=== PATIENT | female | born 1945 | race Two or more races ===

== ENCOUNTER 2020-07-26 18:19 | Inpatient (IN) ==
--- NOTE | 2020-07-26 18:39 | Emergency Department Note ---
Impression & Plan Hypothermia, Weakness, Bradycardia ED Provider Note NAME: TIA SANCHEZ AGE: 74 SEX: F : 1945 ARRIVES VIA: Walk-In INFORMANT: Patient ED PROVIDER(S): Wiley Bloom DO CHIEF COMPLAINT: weak, trouble walking, hypothermic HPI: Patient is a 74-year-old female with a past medical history of breast cancer who presents the ER for weakness. Symptoms have been present for the past 1.5 weeks. They have been getting worse. They have been following up with PCP and had blood work. Patient today had another appointment for telehealth and she was referred in as symptoms have been getting worse and she has been having trouble walking and was found to be 92 to 93 F. Patient denies any headache or change in vision. No chest pain or shortness of breath. No nausea, vomiting or diarrhea. No dysuria, urgency or frequency. No other exacerbating or remitting factors. ROS: See above HPI for pertinent positives & negatives. A total of 10 systems reviewed and were otherwise negative. PAST MEDICAL HISTORY:See Below PAST SURGICAL HISTORY:See Below FAMILY HISTORY:See Below SOCIAL HISTORY:See Below HOME MEDICATIONS:See Below ALLERGIES:See Below VITALS:See Below PHYSICAL EXAMINATION: GENERAL: Sitting up in bed, alert, well appearing, well nourished, no distress, non-toxic EYE EXAM: normal conjunctiva. PERRL and EOM's intact. OROPHARYNX: mask in place NECK: supple, no nuchal rigidity, no adenopathy, non-tender LUNGS: Clear to auscultation. Normal chest wall mechanics HEART: no murmurs, S1 normal and S2 normal ABDOMEN: abdomen soft, non-tender, normo-active bowel sounds, no masses, no rebound or guarding. UPPER EXTREMITIES: upper extremities are grossly normal. LOWER EXTREMITIES: No pitting edema. NEURO EXAM: Normal sensorium, cranial nerves II-XII intact, normal speech, no weakness of arms, no weakness of legs. No drift. Finger to nose intact. Gross sensation intact. MEDICAL DECISION MAKING: Patient is a 74-year-old female who presents the ER for weakness. Symptoms have been present for the past 1.5 weeks. Gradually getting worse. She has been following up with her PCP and was referred in today. IV was established blood work was obtained. She is neurologically intact. Labs show no significant leukocytosis or anemia. BMP with mild hyponatremia 128. Lactate was normal. Mild elevation in LFTs. Troponin was negative. Lipase unremarkable. TSH 6.4. UA without infection. Covid was negative. CT head and chest x-ray were unremarkable. Patient was updated bedside. Discussed with the hospitalist for further evaluation. She remained under Rachael hugger throughout her entire stay. She was given a bolus of IV fluids. They are updated bedside and admitted for further work-up. Triage Nursing notes reviewed. Limited review of prior medical records performed Vital Signs: reviewed and remarkable for hypothermia Differential diagnosis: Differential diagnosis includes etiologies such as sepsis, UTI, pneumonia, metabolic, electrolyte abnormalities, cardiac sources, intracerebral event, toxicologic, neurological, as well as others were entertained. ER treatment provided: See below Diagnostics interpreted by me: ECG: Sinus bradycardia rate of 46 Poor baseline in the inferior leads No PVCs QTC 425 Cardiac Monitoring: An order was placed for continuous cardiac monitoring. The monitor shows a rate of 42 with sinus rhythm. Laboratory studies: As stated above and show below. Imaging studies: CT head shows no acute pathology Portable AP upright 1 view of the chest shows no acute infiltrate Consultation(s): Discussed with the hospitalist for further evaluation Procedures: none Critical Care: None Past Med/Surg History Medical History Allergic rhinitis Person's cyst of knee Benign neoplasm of colon Cataract Dyslipidemia Edema of both legs FH: colonic polyps HTN, goal below 140/90 Hx of vaginal delivery Lumbar spondylosis Menopause Painful total knee replacement, right Surgical History History of lumpectomy of left breast History of partial hysterectomy Family History Mother Musculoskeletal disease Blood disorder anemia, at age 91y Father , dies at age 81 Diabetes 1.5, managed as type 2 Hypertension Brother Hypertension Sister , UNILATERAL, POSTMENOPAUSAL BREAST CANCER Breast cancer Social History Smoking Status: Never smoker Hx Alcohol Use: No Hx Substance Use: No Preferred Language: Malay Communication Ability: Effective Visual Impairment: Partially Limited Hearing Ability: Normal Training Development Director Required: No Beliefs That Will Affect Care: None marital status: Current Living Situation: Spouse current occupation: homemaker Feels Safe at Home: Yes caffeine: Yes during the past year weight has: remained stable Allergies Allergies Allergy/AdvReac Type Severity Reaction Status Date / Time amoxicillin Allergy Intermediate Rash Verified 07/05/20 14:04 adhesive tape AdvReac Verified 07/05/20 14:04 Home Meds Home Medications Medication Instructions Recorded Confirmed anastrozole 1 mg tablet 1 mg PO DAILY 11/17/18 07/26/20 carvedilol 6.25 mg tablet 6.25 mg PO PM tab 05/20/19 07/26/20 albuterol sulfate 90 mcg/actuation 2 puff INHALATION Q4H PRN g 05/18/20 07/26/20 aerosol inhaler ammonium lactate 12 % topical cream 1 applic TOP DAILY 05/18/20 07/26/20 atorvastatin 10 mg tablet 10 mg PO QPM 05/18/20 07/26/20 carvedilol 12.5 mg tablet 12.5 mg PO QAM tab 05/18/20 07/26/20 clindamycin HCl 150 mg capsule 150 mg PO TID PRN 05/18/20 07/26/20 furosemide 20 mg tablet 20 mg PO QAM 05/18/20 07/26/20 multivitamin 1 tab PO DAILY 05/18/20 07/26/20 acetaminophen [Acetaminophen Extra 500 mg PO Q8H PRN 07/26/20 07/26/20 Strength] albuterol sulfate [Proventil] 2.5 mg CONTINUOUS NEBULIZATION Q4H 07/26/20 07/26/20 PRN amlodipine 5 mg PO PM 07/26/20 07/26/20 cholecalciferol (vitamin D3) 50 mcg PO DAILY 07/26/20 07/26/20 fluticasone propionate 2 spray INTRANASAL QAM 07/26/20 07/26/20 lisinopril 40 mg PO DAILY 07/26/20 07/26/20 Results & Data (ED) Vital Signs Vital Signs - 24 hr 07/26/20 18:22 07/26/20 18:50 07/26/20 18:56 Temperature 35.5 C L 34.0 C L Temperature Source Temporal Artery Scan Rectal Pulse Rate 45 L 45 L Pulse Rate from SpO2 Sensor Respiratory Rate 16 14 Respiratory Effort / Characteristics Non-Labored Spontaneous Respiratory Depth Normal Respiratory Pattern Regular Blood Pressure 180/95 H Blood Pressure Mean 123 Blood Pressure Position Sitting Pulse Oximetry 99 Oxygen Delivery Method Room Air Sepsis Recent Fever Within 48 Hours No Sepsis New/Unexplained Change in Mental Status N/A Sepsis Action Taken by Nursing No Action Required 07/26/20 19:00 07/26/20 19:01 07/26/20 19:20 Temperature Temperature Source Pulse Rate 45 L 44 L Pulse Rate from SpO2 Sensor 46 L 44 L 47 L Respiratory Rate 16 20 Respiratory Effort / Characteristics Respiratory Depth Respiratory Pattern Blood Pressure 172/90 H Blood Pressure Mean 104 Blood Pressure Position Pulse Oximetry 98 98 98 Oxygen Delivery Method Sepsis Recent Fever Within 48 Hours Sepsis New/Unexplained Change in Mental Status Sepsis Action Taken by Nursing 07/26/20 19:30 07/26/20 19:31 07/26/20 19:40 Temperature Temperature Source Pulse Rate 44 L 44 L 47 L Pulse Rate from SpO2 Sensor 45 L 46 L Respiratory Rate 17 20 16 Respiratory Effort / Characteristics Respiratory Depth Respiratory Pattern Blood Pressure 150/85 H Blood Pressure Mean 103 Blood Pressure Position Pulse Oximetry 97 100 Oxygen Delivery Method Sepsis Recent Fever Within 48 Hours Sepsis New/Unexplained Change in Mental Status Sepsis Action Taken by Nursing 07/26/20 19:53 07/26/20 20:00 07/26/20 20:10 Temperature Temperature Source Pulse Rate 45 L 43 L 43 L Pulse Rate from SpO2 Sensor Respiratory Rate 19 14 16 Respiratory Effort / Characteristics Respiratory Depth Respiratory Pattern Blood Pressure 150/84 H Blood Pressure Mean 102 Blood Pressure Position Pulse Oximetry 98 Oxygen Delivery Method Room Air Sepsis Recent Fever Within 48 Hours Sepsis New/Unexplained Change in Mental Status Sepsis Action Taken by Nursing 07/26/20 20:20 07/26/20 20:28 07/26/20 20:30 Temperature 34.0 C L Temperature Source Rectal Pulse Rate 45 L 49 L Pulse Rate from SpO2 Sensor Respiratory Rate 15 18 Respiratory Effort / Characteristics Respiratory Depth Respiratory Pattern Blood Pressure Blood Pressure Mean Blood Pressure Position Pulse Oximetry Oxygen Delivery Method Sepsis Recent Fever Within 48 Hours Sepsis New/Unexplained Change in Mental Status Sepsis Action Taken by Nursing 07/26/20 20:40 07/26/20 20:46 07/26/20 20:50 Temperature 34.0 C L Temperature Source Rectal Pulse Rate 55 L 52 L Pulse Rate from SpO2 Sensor Respiratory Rate 14 22 Respiratory Effort / Characteristics Respiratory Depth Respiratory Pattern Blood Pressure Blood Pressure Mean Blood Pressure Position Pulse Oximetry Oxygen Delivery Method Sepsis Recent Fever Within 48 Hours Sepsis New/Unexplained Change in Mental Status Sepsis Action Taken by Nursing 07/26/20 21:00 07/26/20 21:01 07/26/20 21:10 Temperature Temperature Source Pulse Rate 55 L 70 51 L Pulse Rate from SpO2 Sensor Respiratory Rate 14 15 14 Respiratory Effort / Characteristics Respiratory Depth Respiratory Pattern Blood Pressure 147/99 H Blood Pressure Mean 110 Blood Pressure Position Pulse Oximetry 99 Oxygen Delivery Method Room Air Sepsis Recent Fever Within 48 Hours Sepsis New/Unexplained Change in Mental Status Sepsis Action Taken by Nursing 07/26/20 21:27 Temperature Temperature Source Pulse Rate 70 Pulse Rate from SpO2 Sensor Respiratory Rate 24 Respiratory Effort / Characteristics Respiratory Depth Respiratory Pattern Blood Pressure Blood Pressure Mean Blood Pressure Position Pulse Oximetry Oxygen Delivery Method Sepsis Recent Fever Within 48 Hours Sepsis New/Unexplained Change in Mental Status Sepsis Action Taken by Nursing Laboratory Data Result diagrams: 07/26/20 18:43 07/26/20 19:38 Lab Results 07/26/20 07/26/20 07/26/20 Range/Units 18:38 18:43 18:43 WBC 4.84 (4.8-10.8) K/uL RBC 3.99 L (4.2-5.4) M/uL Hgb 12.4 (12.0-16.0) g/dL Hct 35.2 L (37-47) % MCV 88.2 (80-100) fL MCH 31.1 (25-34) pg MCHC 35.2 (32-36) g/dL RDW Std Deviation 42.2 (36.4-46.3) fL RDW Coeff of [place]rera 13.1 (11.5-14.5) % Plt Count 193 (130-400) K/uL MPV 11.1 H (7.4-10.4) fL Immature Gran % (Auto) 0.2 % Neut % (Auto) 62.4 % Lymph % (Auto) 28.3 % [place] % (Auto) 7.2 % Eos % (Auto) 1.7 % Baso % (Auto) 0.2 % Neut # (Auto) 3.02 (1.4-6.5) K/uL Lymph # (Auto) 1.37 (1.2-3.4) K/uL [place] # (Auto) 0.35 (0.11-0.59) K/uL Eos # (Auto) 0.08 (0-0.5) K/uL Baso # (Auto) 0.01 (0-0.2) K/uL Immature Gran # (Auto) 0.01 (0.00-0.02) K/uL Giant Platelets 1+ Sodium 128 L (136-145) mmol/L Potassium (3.5-5.1) mmol/L Chloride 94 L (98-107) mmol/L Carbon Dioxide 30 (21-32) mmol/L Anion Gap 4.0 (3-11) BUN 12 (7-18) mg/dl Creatinine 0.47 L (0.6-1.2) mg/dl Est Cr Clr Drug Dosing 76.6 ml/min Est GFR ( Amer) 113.6 Est GFR (Non-Af Amer) 98.0 BUN/Creatinine Ratio 25.1 H (10-20) Glucose 84 (70-99) mg/dl Osmolality (280-300) mOsm/kg Lactate 0.5 (0.4-2.0) mmol/L Calcium 9.7 (8.5-10.1) mg/dl Magnesium (1.8-2.4) mg/dl Total Bilirubin 0.3 (0.2-1) mg/dl AST (15-37) U/L ALT 104 H (12-78) U/L Alkaline Phosphatase 118 H (45-117) U/L Troponin I < 0.015 (0-0.045) ng/ml Total Protein 7.9 (6.4-8.2) gm/dl Albumin 3.4 (3.4-5.0) gm/dl Globulin 4.5 H (2.5-4.0) gm/dl Albumin/Globulin Ratio 0.8 L (0.9-2) Lipase 174 (73-393) U/L TSH (0.300-4.500) uIu/ml Urine Color Urine Appearance (Clear) Urine pH (4.5-7.5) Ur Specific [place] (1.000-1.030) Urine Protein (Negative) Urine Glucose (UA) (Negative) Urine Ketones (Negative) Urine Blood (Negative) Urine Nitrite (Negative) Urine Bilirubin (Negative) Urine Urobilinogen (Negative) Ur Leukocyte Esterase (Negative) Urine WBC (Auto) (0-5) /hpf Urine RBC (Auto) (0-4) /hpf U Hyaline Cast (Auto) (0-5) /lpf U Epithel Cells (Auto) (0-5) /lpf Urine Bacteria (Auto) (Negative) Lyme Disease IgG Ab (Negative) Lyme Disease IgM Ab (Negative) COVID-19 Eval Order SARS-CoV-2 (PCR) (Negative) Influenza Type A (PCR) (Neg) Influenza Type B (PCR) (Neg) RSV (RT-PCR) (Neg) 07/26/20 07/26/20 07/26/20 Range/Units 19:20 19:38 19:38 WBC (4.8-10.8) K/uL RBC (4.2-5.4) M/uL Hgb (12.0-16.0) g/dL Hct (37-47) % MCV (80-100) fL MCH (25-34) pg MCHC (32-36) g/dL RDW Std Deviation (36.4-46.3) fL RDW Coeff of Herrera (11.5-14.5) % Plt Count (130-400) K/uL MPV (7.4-10.4) fL Immature Gran % (Auto) % Neut % (Auto) % Lymph % (Auto) % [place] % (Auto) % Eos % (Auto) % Baso % (Auto) % Neut # (Auto) (1.4-6.5) K/uL Lymph # (Auto) (1.2-3.4) K/uL [place] # (Auto) (0.11-0.59) K/uL Eos # (Auto) (0-0.5) K/uL Baso # (Auto) (0-0.2) K/uL Immature Gran # (Auto) (0.00-0.02) K/uL [place] Platelets Sodium (136-145) mmol/L Potassium 3.7 (3.5-5.1) mmol/L Chloride (98-107) mmol/L Carbon Dioxide (21-32) mmol/L Anion Gap (3-11) BUN (7-18) mg/dl Creatinine (0.6-1.2) mg/dl Est Cr Clr Drug Dosing ml/min Est GFR ( Amer) Est GFR (Non-Af Amer) BUN/Creatinine Ratio (10-20) Glucose (70-99) mg/dl Osmolality (280-300) mOsm/kg Lactate (0.4-2.0) mmol/L Calcium (8.5-10.1) mg/dl Magnesium 1.8 (1.8-2.4) mg/dl Total Bilirubin (0.2-1) mg/dl AST 76 H (15-37) U/L ALT (12-78) U/L Alkaline Phosphatase (45-117) U/L Troponin I (0-0.045) ng/ml Total Protein (6.4-8.2) gm/dl Albumin (3.4-5.0) gm/dl Globulin (2.5-4.0) gm/dl Albumin/Globulin Ratio (0.9-2) Lipase (73-393) U/L TSH 6.480 H (0.300-4.500) uIu/ml Urine Color Yellow Urine Appearance Clear (Clear) Urine pH 7.5 (4.5-7.5) Ur Specific [place] 1.011 (1.000-1.030) Urine Protein Negative (Negative) Urine Glucose (UA) Negative (Negative) Urine Ketones Negative (Negative) Urine Blood Negative (Negative) Urine Nitrite Negative (Negative) Urine Bilirubin Negative (Negative) Urine Urobilinogen Negative (Negative) Ur Leukocyte Esterase Trace H (Negative) Urine WBC (Auto) 1-5 (0-5) /hpf Urine RBC (Auto) 0-4 (0-4) /hpf U Hyaline Cast (Auto) 0 (0-5) /lpf U Epithel Cells (Auto) 0-5 (0-5) /lpf Urine Bacteria (Auto) Negative (Negative) Lyme Disease IgG Ab (Negative) Lyme Disease IgM Ab (Negative) COVID-19 Eval Order SARS-CoV-2 (PCR) (Negative) Influenza Type A (PCR) (Neg) Influenza Type B (PCR) (Neg) RSV (RT-PCR) (Neg) 07/26/20 07/26/20 07/26/20 Range/Units 19:38 19:38 20:35 WBC (4.8-10.8) K/uL RBC (4.2-5.4) M/uL Hgb (12.0-16.0) g/dL Hct (37-47) % MCV (80-100) fL MCH (25-34) pg MCHC (32-36) g/dL RDW Std Deviation (36.4-46.3) fL RDW Coeff of Herrera (11.5-14.5) % Plt Count (130-400) K/uL MPV (7.4-10.4) fL Immature Gran % (Auto) % Neut % (Auto) % Lymph % (Auto) % [place] % (Auto) % Eos % (Auto) % Baso % (Auto) % Neut # (Auto) (1.4-6.5) K/uL Lymph # (Auto) (1.2-3.4) K/uL [place] # (Auto) (0.11-0.59) K/uL Eos # (Auto) (0-0.5) K/uL Baso # (Auto) (0-0.2) K/uL Immature Gran # (Auto) (0.00-0.02) K/uL [place] Platelets Sodium (136-145) mmol/L Potassium (3.5-5.1) mmol/L Chloride (98-107) mmol/L Carbon Dioxide (21-32) mmol/L Anion Gap (3-11) BUN (7-18) mg/dl Creatinine (0.6-1.2) mg/dl Est Cr Clr Drug Dosing ml/min Est GFR ( Amer) Est GFR (Non-Af Amer) BUN/Creatinine Ratio (10-20) Glucose (70-99) mg/dl Osmolality 270 L (280-300) mOsm/kg Lactate (0.4-2.0) mmol/L Calcium (8.5-10.1) mg/dl Magnesium (1.8-2.4) mg/dl Total Bilirubin (0.2-1) mg/dl AST (15-37) U/L ALT (12-78) U/L Alkaline Phosphatase (45-117) U/L Troponin I (0-0.045) ng/ml Total Protein (6.4-8.2) gm/dl Albumin (3.4-5.0) gm/dl Globulin (2.5-4.0) gm/dl Albumin/Globulin Ratio (0.9-2) Lipase (73-393) U/L TSH (0.300-4.500) uIu/ml Urine Color Urine Appearance (Clear) Urine pH (4.5-7.5) Ur Specific [place] (1.000-1.030) Urine Protein (Negative) Urine Glucose (UA) (Negative) Urine Ketones (Negative) Urine Blood (Negative) Urine Nitrite (Negative) Urine Bilirubin (Negative) Urine Urobilinogen (Negative) Ur Leukocyte Esterase (Negative) Urine WBC (Auto) (0-5) /hpf Urine RBC (Auto) (0-4) /hpf U Hyaline Cast (Auto) (0-5) /lpf U Epithel Cells (Auto) (0-5) /lpf Urine Bacteria (Auto) (Negative) Lyme Disease IgG Ab Negative (Negative) Lyme Disease IgM Ab Negative (Negative) COVID-[address] Eval [address] CovFluRsv at [facility] SARS-CoV-2 (PCR) (Negative) Influenza Type A (PCR) (Neg) Influenza Type B (PCR) (Neg) RSV (RT-PCR) (Neg) 07/26/20 Range/Units 20:35 WBC (4.8-10.8) K/uL RBC (4.2-5.4) M/uL Hgb (12.0-16.0) g/dL Hct (37-47) % MCV (80-100) fL MCH (25-34) pg MCHC (32-36) g/dL RDW Std Deviation (36.4-46.3) fL RDW Coeff of Herrera (11.5-14.5) % Plt Count (130-400) K/uL MPV (7.4-10.4) fL Immature Gran % (Auto) % Neut % (Auto) % Lymph % (Auto) % [place] % (Auto) % Eos % (Auto) % Baso % (Auto) % Neut # (Auto) (1.4-6.5) K/uL Lymph # (Auto) (1.2-3.4) K/uL [place] # (Auto) (0.11-0.59) K/uL Eos # (Auto) (0-0.5) K/uL Baso # (Auto) (0-0.2) K/uL Immature Gran # (Auto) (0.00-0.02) K/uL [place] Platelets Sodium (136-145) mmol/L Potassium (3.5-5.1) mmol/L Chloride (98-107) mmol/L Carbon Dioxide (21-32) mmol/L Anion Gap (3-11) BUN (7-18) mg/dl Creatinine (0.6-1.2) mg/dl Est Cr Clr Drug Dosing ml/min Est GFR ( Amer) Est GFR (Non-Af Amer) BUN/Creatinine Ratio (10-20) Glucose (70-99) mg/dl Osmolality (280-300) mOsm/kg Lactate (0.4-2.0) mmol/L Calcium (8.5-10.1) mg/dl Magnesium (1.8-2.4) mg/dl Total Bilirubin (0.2-1) mg/dl AST (15-37) U/L ALT (12-78) U/L Alkaline Phosphatase (45-117) U/L Troponin I (0-0.045) ng/ml Total Protein (6.4-8.2) gm/dl Albumin (3.4-5.0) gm/dl Globulin (2.5-4.0) gm/dl Albumin/Globulin Ratio (0.9-2) Lipase (73-393) U/L TSH (0.300-4.500) uIu/ml Urine Color Urine Appearance (Clear) Urine pH (4.5-7.5) Ur Specific [place] (1.000-1.030) Urine Protein (Negative) Urine Glucose (UA) (Negative) Urine Ketones (Negative) Urine Blood (Negative) Urine Nitrite (Negative) Urine Bilirubin (Negative) Urine Urobilinogen (Negative) Ur Leukocyte Esterase (Negative) Urine WBC (Auto) (0-5) /hpf Urine RBC (Auto) (0-4) /hpf U Hyaline Cast (Auto) (0-5) /lpf U Epithel Cells (Auto) (0-5) /lpf Urine Bacteria (Auto) (Negative) Lyme Disease IgG Ab (Negative) Lyme Disease IgM Ab (Negative) COVID-19 Eval Order SARS-CoV-2 (PCR) NEGATIVE (Negative) Influenza Type A (PCR) Negative (Neg) Influenza Type B (PCR) Negative (Neg) RSV (RT-PCR) Negative (Neg) Administered Medications Discontinued Medications Sodium Chloride (Nss 1000ml) 1,000 mls @ 999 mls/hr IV .[id number] ONE Stop: 01/13/21 19:43 Last Infusion: 07/26/20 21:33 Dose: 0 mls/hr Documented by: [id number] Admin: 07/26/20 20:16 Dose: 999 mls/hr Documented by: [id number] Cefepime HCl 1,000 mg/ Syringe 11.3 mls @ 5.5 mls/min IV NOW STA; Protocol Stop: 07/26/20 19:54 Last Admin: 07/26/20 20:15 Dose: 5.5 mls/min Documented by: [id number] Discharge Plan Visit Data Chief Complaint: Weakness Stated Complaint: WEAKNESS ED Provider: Wiley Bloom Discharge Problem: Hypothermia, Weakness, Bradycardia Forms Stand Alone Forms: [facility] [place] 12Return Prescriptions Prescriptions: No Action anastrozole [Arimidex] 1 mg tablet 1 mg PO DAILY RF: 0 carvedilol 6.25 mg tablet 6.25 mg PO PM RF: 0 ammonium lactate 12 % cream 1 applic TOP DAILY RF: 0 clindamycin HCl 150 mg capsule 150 mg PO TID PRN (Reason: dental procedures) RF: 0 carvedilol 12.5 mg tablet 12.5 mg PO QAM RF: 0 atorvastatin 10 mg tablet 10 mg PO QPM RF: 0 multivitamin Tablet 1 tab PO DAILY RF: 0 albuterol sulfate [Ventolin HFA] 90 mcg/actuation HFA aerosol inhaler 2 puff inhalation Q4H PRN (Reason: Shortness Of Breath Or Wheezing) RF: 0 furosemide 20 mg tablet 20 mg PO QAM RF: 0 amlodipine 5 mg Tablet 5 mg PO PM RF: 0 acetaminophen [Acetaminophen Extra Strength] 500 mg Tablet 500 mg PO Q8H PRN (Reason: Fever Or Pain) RF: 0 fluticasone propionate 50 mcg/actuation spray,suspension 2 spray INTRANASAL QAM RF: 0 lisinopril 40 mg tablet 40 mg PO DAILY RF: 0 cholecalciferol (vitamin D3) 50 mcg (2,000 unit) Tablet 50 mcg PO DAILY RF: 0 albuterol sulfate [Proventil] 2.5 mg /3 mL (0.083 %) Solution For Nebulization 2.5 mg continuous nebulization Q4H PRN (Reason: Shortness Of Breath Or Wheezing) RF: 0 Discharge Problem: Hypothermia Qualifiers: Encounter type: initial encounter Qualified Code(s): T68.XXXA - Hypothermia, initial encounter
[2020-07-26] MEDS ORDERED: SODIUM CHLORIDE 0.9% 1000ML 1,000 ML IV ONE (18:43)
[2020-07-26 19:10] LABS: Mean Corpuscular Hgb Conc 35.2 g/dL (32-36); Mean Platelet Volume 11.1 fL (7.4-10.4); Platelet Count 193 K/uL (130-400)
--- NOTE | 2020-07-26 19:10 | XRay Report ---
XR chest 1V portable CLINICAL HISTORY: Weakness COMPARISON STUDY: 11/06/2015 FINDINGS: The heart is mildly enlarged. There is aortic tortuosity. There is no failure. There is no focal pulmonary consolidation. There are no pleural effusions.[ IMPRESSION: No active disease in the chest. ACT 112: Negative or not required by law. Electronically signed by: Joshua Bradley M.D. 07/26/2020 7:09 PM
[2020-07-26 19:30] LABS: Appearance Urine Clear (Clear); Bacteria Urine Automated Negative (Negative); Bilirubin Urine Negative (Negative); Blood Urine Negative (Negative); Cast Urine Automated 0 /lpf (0-5); Color Urine Yellow; Epithelial Cell Urine Auto 0-5 /lpf (0-5); Glucose Urine UA Negative (Negative); Ketones Urine Negative (Negative); Leukocyte Esterase Urine Trace (Negative); Nitrite Urine Negative (Negative); Protein Urine Negative (Negative); RBC Urine Automated 0-4 /hpf (0-4); Specific Gravity Urine 1.011 (1.000-1.030); Urobilinogen Urine Negative (Negative); pH Urine 7.5 (4.5-7.5)
[2020-07-26 19:35] LABS: Alanine Aminotransferase 104 U/L (12-78); Albumin Globulin Ratio 0.8 (0.9-2); Albumin Level 3.4 gm/dl (3.4-5.0); Alkaline Phosphatase 118 U/L (45-117); BUN Creatinine Ratio 25.1 (10-20); Bilirubin,Total 0.3 mg/dl (0.2-1); Blood Urea Nitrogen 12 mg/dl (7-18); Calcium 9.7 mg/dl (8.5-10.1); Carbon Dioxide 30 mmol/L (21-32); Chloride 94 mmol/L (98-107); Creatinine Clr Calc Pharmacy 76.6 ml/min; Est GFR (African American) 113.6; Globulin 4.5 gm/dl (2.5-4.0); Glucose 84 mg/dl (70-99); Lipase 174 U/L (73-393); Sodium 128 mmol/L (136-145); Total Protein 7.9 gm/dl (6.4-8.2); Troponin I < 0.015 ng/ml (0-0.045)
[2020-07-26] MEDS ORDERED: CEFEPIME 1,000 MG in SYRINGE 0 ML IV STA (19:52)
--- NOTE | 2020-07-26 19:54 | CT Scan Report ---
CT head/brain wo con CLINICAL HISTORY: Change in mental status. Weakness. COMPARISON STUDY: No previous studies for comparison. TECHNIQUE: Axial CT of the brain is performed from the vertex to the skull base. IV contrast was not administered for this examination. A dose lowering technique was utilized adhering to the principles of ALARA. CT DOSE: 537.48 mGy.cm FINDINGS: No intra or extra-axial mass lesions are visualized. There is no CT evidence of acute cortical infarc tion. There is no evidence of midline shift. There is no acute hemorrhage. No calvarial fractures ar e visualized. There are patchy white matter hypodensities likely on a small vessel basis. There is an old lacunar i nfarct within the deep white matter of the left hemisphere There is no evidence of pathologic ventricular dilatation. There is no evidence of acute sinusitis IMPRESSION: No acute intracranial findings ACT 112: Negative or not required by law. Electronically signed by: Joshua Bradley M.D. 07/26/2020 7:52 PM
[2020-07-26 20:08] LABS: Potassium 3.7 mmol/L (3.5-5.1)
[2020-07-26 20:50] LABS: Magnesium 1.8 mg/dl (1.8-2.4); Thyroid Stimulating Hormone 6.48 uIu/ml (0.300-4.500)
[2020-07-26 21:09] LABS: Lyme Ab IgG w/WB Rflx Negative (Negative); Lyme Ab IgM w/WB Rflx Negative (Negative)
[2020-07-26 21:21] LABS: Basophils # (auto) 0.01 K/uL (0-0.2); Basophils % (auto) 0.2 %; Eosinophils # (auto) 0.08 K/uL (0-0.5); Eosinophils % (auto) 1.7 %; Giant Platelets 1+; Hematocrit (blood only) 35.2 % (37-47); Hemoglobin 12.4 g/dL (12.0-16.0); Immature Granulocytes # (auto) 0.01 K/uL (0.00-0.02); Immature Granulocytes % (auto) 0.2 %; Lymphocytes # (auto) 1.37 K/uL (1.2-3.4); Lymphocytes % (auto) 28.3 %; Mean Corpuscular Hemoglobin 31.1 pg (25-34); Mean Corpuscular Volume 88.2 fL (80-100); Monocytes # (auto) 0.35 K/uL (0.11-0.59); Monocytes % (auto) 7.2 %; Neutrophils # (auto) 3.02 K/uL (1.4-6.5); Neutrophils % (auto) 62.4 %; RDW Coefficient of Variation 13.1 % (11.5-14.5); RDW Standard Deviation 42.2 fL (36.4-46.3); Red Blood Count 3.99 M/uL (4.2-5.4); White Blood Count 4.84 K/uL (4.8-10.8)
[2020-07-26 21:29] LABS: Influenza A virus by PCR Negative (Neg); Influenza B virus by PCR Negative (Neg); RSV by PCR Negative (Neg); SARS CoV2 RNA(COVID-19) InHosp NEGATIVE (Negative)
--- NOTE | 2020-07-26 21:31 | History & Physical Report ---
Date of Service July 26, 2020 Assessment & Plan (1) Weakness: (2) Bradycardia: (3) Malignant neoplasm of upper-inner quadrant of left breast in female, estrogen receptor positive: (4) HTN (hypertension): (5) Dyslipidemia: Assessment and Plan per attending physician, Dr Junior. See addendum Full Code as per discussion with pt Follows with Dr Ken Diallo for routine care History of Present Illness Chief Complaint: Weakness Primary Care Provider: Ken Diallo, Pt is 74 y/o F with PMH left breast cancer s/p surgery and radiation, HTN, dyslipidemia presented to ER with complaint of leg weakness. Patient states approximately 1 month ago noticed bilateral leg weakness which has worsened over the past 2 weeks. She has started to need to walk with a cane secondary to leg weakness. Patient states in June 2020 she was watching TV and walking and walked into her coffee table causing her to fall backwards. Denies hitting head. After fall following day had back pain. She reports follow-up with Ortho and was to have his go therapy however back pain improved and has since been resolved. Patient reports had leg weakness prior to fall. Denies loss of control of bowels or bladder. Past 3 days has noticed low temperatures at home. Has been taking temperature daily and reports temperatures 93 F, reports her baseline is 97 F. Also reports noting pulse readings in the 50s. She reports chronic shortness of breath and has been following with pulmonology and is currently waiting approval for oxygen at night. Denies any known insect bite. Patient states not been going outside for months. She reports has been having constipation and started taking MiraLAX which is improved constipation. Denies fever/chills, diaphoresis, N/V/D, melena, hematochezia, CLEMENT, dizziness, syncope, vision changes, neck pain, CP, SOB, orthopnea, palpitations, cough, sore throat, choking, otalgia, rhinorrhea, abdominal pain, paresthesias, upper extremity weakness, extremity edema, rashes, dysuria, hematuria, urinary frequency. Denies ill contacts, denies recent travel. Denies Covid exposure. Denies any recent med changes Allergies Allergy/AdvReac Type Severity Reaction Status Date / Time amoxicillin Allergy Intermediate Rash Verified 07/05/20 14:04 adhesive tape AdvReac Verified 07/05/20 14:04 Home Medications Medication Instructions Recorded Confirmed Type anastrozole 1 mg tablet 1 mg PO DAILY 11/17/18 07/26/20 History carvedilol 6.25 mg tablet 6.25 mg PO PM tab 05/20/19 07/26/20 History albuterol sulfate 90 mcg/actuation 2 puff INHALATION Q4H PRN g 05/18/20 07/26/20 History aerosol inhaler ammonium lactate 12 % topical cream 1 applic TOP DAILY 05/18/20 07/26/20 History atorvastatin 10 mg tablet 10 mg PO QPM 05/18/20 07/26/20 History carvedilol 12.5 mg tablet 12.5 mg PO QAM tab 05/18/20 07/26/20 History clindamycin HCl 150 mg capsule 150 mg PO TID PRN 05/18/20 07/26/20 History furosemide 20 mg tablet 20 mg PO QAM 05/18/20 07/26/20 History multivitamin 1 tab PO DAILY 05/18/20 07/26/20 History acetaminophen [Acetaminophen Extra 500 mg PO Q8H PRN 07/26/20 07/26/20 History Strength] albuterol sulfate [Proventil] 2.5 mg CONTINUOUS NEBULIZATION Q4H 07/26/20 07/26/20 History PRN amlodipine 5 mg PO PM 07/26/20 07/26/20 History cholecalciferol (vitamin D3) 50 mcg PO DAILY 07/26/20 07/26/20 History fluticasone propionate 2 spray INTRANASAL QAM 07/26/20 07/26/20 History lisinopril 40 mg PO DAILY 07/26/20 07/26/20 History Past Med/Surg History Medical History Allergic rhinitis Person's cyst of knee Benign neoplasm of colon Cataract Dyslipidemia Edema of both legs FH: colonic polyps HTN, goal below 140/90 Hx of vaginal delivery Lumbar spondylosis Menopause Painful total knee replacement, right Surgical History History of lumpectomy of left breast History of partial hysterectomy Family History Mother Musculoskeletal disease Blood disorder anemia, at age 91y Father , dies at age 81 Diabetes 1.5, managed as type 2 Hypertension Brother Hypertension Sister , UNILATERAL, POSTMENOPAUSAL BREAST CANCER Breast cancer Social History Smoking Status: Never smoker Hx Alcohol Use: No Hx Substance Use: No Preferred Language: Angolan Communication Ability: Effective Visual Impairment: Partially Limited Hearing Ability: Normal Residential Appraiser Required: No Beliefs That Will Affect Care: None marital status: Current Living Situation: Spouse current occupation: homemaker Other Information That Helps Us Care for You: No Feels Safe at Home: Yes Safety Concerns: Feels Safe At This Time caffeine: Yes during the past year weight has: remained stable Assistive Devices: Cane Review of Systems Review of Systems: All systems reviewed & are unremarkable except as noted in HPI & below Physical Exam Physical Exam: General: no distress, WDWN Head: normocephalic, atraumatic Eyes: PERRL, EOM's intact, conjunctiva non-injected, anicteric ENT: normal inspection external ears, nose, mucous membranes moist Neck: supple, trachea midline Lungs: clear, no respiratory distress, no wheezing/rhonchi/rales CV: bradycardia, rate 52, regular rhythm, no JVD, no pretibial edema Abd: normal BS, soft, non-tender Ext: no cyanosis, no calf tenderness Neuro: A&O x 3, bilateral arms strength 4/5, bilateral lower legs 3-4/5 strength, normal affect Skin: warm, dry Results & Data Results & Data ([facility]) Vital Signs (Past 12 Hours) Vital Signs Temp Pulse Resp BP Pulse Ox 07/26/20 20:46 34.0 C L 07/26/20 20:28 34.0 C L 07/26/20 20:20 45 L 15 07/26/20 20:10 43 L 16 07/26/20 20:00 43 L 14 150/84 H 98 07/26/20 19:53 45 L 19 07/26/20 19:40 47 L 16 100 07/26/20 19:31 44 L 20 07/26/20 19:30 44 L 17 150/85 H 97 07/26/20 19:20 98 07/26/20 19:01 44 L 20 172/90 H 98 07/26/20 19:00 45 L 16 98 07/26/20 18:56 45 L 14 07/26/20 18:50 34.0 C L 07/26/20 18:22 35.5 C L 45 L 16 180/95 H 99 Laboratory Results Short CBC 07/26/20 07/26/20 07/26/20 Range/Units 18:38 18:43 19:38 WBC 4.84 (4.8-10.8) K/uL Hgb 12.4 (12.0-16.0) g/dL Hct 35.2 L (37-47) % Plt Count 193 (130-400) K/uL AST 76 H (15-37) U/L BMP 07/26/20 07/26/20 18:38 19:38 Sodium 128 L Potassium 3.7 Chloride 94 L Carbon Dioxide 30 BUN 12 Creatinine 0.47 L Glucose 84 Calcium 9.7 Cardiac Enzymes 07/26/20 Range/Units 18:38 Troponin I < 0.015 (0-0.045) ng/ml Liver Function 07/26/20 07/26/20 Range/Units 18:38 19:38 Total Bilirubin 0.3 (0.2-1) mg/dl AST 76 H (15-37) U/L ALT 104 H (12-78) U/L Alkaline Phosphatase 118 H (45-117) U/L Albumin 3.4 (3.4-5.0) gm/dl Urine 07/26/20 Range/Units 19:20 Urine Color Yellow Urine Appearance Clear (Clear) Urine pH 7.5 (4.5-7.5) Ur Specific Foster 1.011 (1.000-1.030) Urine Protein Negative (Negative) Urine Glucose (UA) Negative (Negative) Diagnostic Findings CXR: IMPRESSION: No active disease in the chest. CT HEAD: IMPRESSION: No acute intracranial findings Supervising Physician Co-Signing Physician Notes IM ATTENDING : Patient seen and examined. History obtained from patient and records. Preceding documentation by Ms. Damaris Vang PA-C reviewed. FINAL ASSESSMENT AND PLAN as follows : Weakness Multifactorial : ? Symptomatic bradycardia secondary to home beta-halima Acute on chronic hyponatremia, mild clinical dehydration Hypertension, elevated History restrictive lung disease as per records, chronic S OB symptoms. Left breast cancer status post surgery, radiation, ongoing Arimidex Rx Hypothermia ? Secondary to excessive beta-halima home dose Asymptomatic pyuria, no sepsis Subclinical hypothyroidism, noted on recent outpatient blood work l Abnormal LFTs, noted on recent outpatient blood work PCU Atropine prn symptomatic bradycardia Appropriate to hold Coreg for now, resume at lowest dose of 3.125 mg twice daily once heart rate within normal limits Careful correction of sodium Hyponatremia work-up Hold home diuretic Titrate amlodipine dose if BP uncontrolled while Coreg on hold Following urine cultures, hold antibiotics for now for asymptomatic pyuria Liver ultrasound Re: Abnormal LFTs DVT prophylaxis per Lovenox subcu Full code Text document was generated using SiOx recognition software. It may contain grammatical or spelling errors. Kindly contact undersigned for clarification of any documentation item in question.
[2020-07-26] MEDS ORDERED: oxyCODONE HCL IR 5 MG TAB (IMMEDIATE RELEASE) PO PRN (22:58)
[2020-07-26] MEDS ORDERED: ACETAMINOPHEN 325 MG TAB PO PRN (22:58)
[2020-07-26] MEDS: amLODIPine BESYLATE 5 MG TAB PO SCH (23:30)
[2020-07-27] MEDS: amLODIPine BESYLATE 5 MG TAB PO SCH ×2 (00:03→20:20)
[2020-07-27 00:45] LABS: T4 Free Thyroxine 1.3 ng/dl (0.8-1.6)
[2020-07-27] MEDS: lisinopril 40 MG TAB PO SCH ×2 (04:06→04:41)
[2020-07-27] MEDS ORDERED: ATROPINE SULFATE 0.1 MG/ML 5ML SYR IV PRN (05:32)
[2020-07-27 07:32] LABS: Basophils # (auto) 0.01 K/uL (0-0.2); Basophils % (auto) 0.2 %; Eosinophils # (auto) 0.06 K/uL (0-0.5); Eosinophils % (auto) 1.4 %; Hematocrit (blood only) 31.5 % (37-47); Hemoglobin 11.1 g/dL (12.0-16.0); Lymphocytes # (auto) 1.21 K/uL (1.2-3.4); Lymphocytes % (auto) 28.7 %; Mean Corpuscular Hgb Conc 35.2 g/dL (32-36); Monocytes # (auto) 0.38 K/uL (0.11-0.59); Neutrophils # (auto) 2.55 K/uL (1.4-6.5); Neutrophils % (auto) 60.7 %; Platelet Count 179 K/uL (130-400); RDW Coefficient of Variation 13.2 % (11.5-14.5); RDW Standard Deviation 42.6 fL (36.4-46.3); Red Blood Count 3.58 M/uL (4.2-5.4); White Blood Count 4.21 K/uL (4.8-10.8)
[2020-07-27 08:06] LABS: Albumin Globulin Ratio 0.8 (0.9-2); BUN Creatinine Ratio 21.8 (10-20); Bilirubin,Total 0.2 mg/dl (0.2-1); Calcium 9.6 mg/dl (8.5-10.1); Creatinine Clr Calc Pharmacy 85.7 ml/min; Est GFR (African American) 117.9; Est GFR (Non-African American) 101.7; Globulin 3.6 gm/dl (2.5-4.0); Potassium 3.8 mmol/L (3.5-5.1); Total Protein 6.6 gm/dl (6.4-8.2)
--- NOTE | 2020-07-27 08:41 | Ultrasound Report ---
US liver CLINICAL HISTORY: Abnormal LFTs. COMPARISON STUDY: No previous studies for comparison. FINDINGS: The pancreas appears sonographically normal. No hepatic masses are visualized. There is no ductal dilatation. The common bile duct measures 5 mm. Within the gallbladder fundus there is an 8 mm nonshadowing flat lesion. This likely represents gallb ladder sludge with equivocal sand-like calculi. A sessile polyp could appear similar but is felt to b e statistically less likely There is no right-sided hydronephrosis. IMPRESSION: 1. 8 mm lesion within the gallbladder fundus, likely representing an area of sludge with equivocal sa nd-like calculi 2. No ductal dilatation 3. Ultrasonographically normal liver and pancreas ACT 112: Negative or not required by law. Electronically signed by: Joshua Bradley M.D. 07/27/2020 8:40 AM
[2020-07-27] MEDS ORDERED: lisinopril 40 MG TAB PO SCH (09:00)
[2020-07-27] MEDS: MULTIVITAMIN TAB PO SCH (09:14)
[2020-07-27] MEDS: ANASTROZOLE 1 MG TAB PO SCH (09:14)
[2020-07-27] MEDS: FLUTICASONE PROPIONATE NA SPR 16 GM BTL SCH (09:15)
[2020-07-27] MEDS: ENOXAPARIN INJ 30 MG/0.3 ML SYR SQ SCH (09:15)
--- NOTE | 2020-07-27 15:30 | Hospitalist Progress Note ---
Date of Service July 27, 2020 Assessment & Plan (1) Weakness: Patient is 74-year-old female with past medical history of breast cancer, hypertension, right total knee replacement, allergic rhinitis, lower extremities edema and lumbar spondylosis presented to the ED with generalized weakness that has been going on for roughly 2 weeks. Reports the weakness is progressively getting worse. She reports that she has been having trouble walking. Also reports that she noticed hypothermia at home with temperature in the 90-93. Patient patient was found to be hyponatremic and bradycardic. Admission CT head was obtained which was negative for any concerning findings. Covert 19 was negative. CBC was unremarkable. BMP was nonconcerning except hyponatremia. LFTs were mildly deranged. Patient reports in June he had a fall and since then she has not been feeling good. She started having back pain since the fall. Was working with therapy. Loss of bladder or bowel control. Ultrasound without any acute concerns possibly some sludge. Weakness possibly due to subclinical hypothyroidism and hyponatremia Chest x-ray without any acute findings. Blood and urine cultures were obtained. Negative thus far. EKG with a sinus bradycardia. Continue to hold beta-halima given bradycardia and hypothermia. TSH is elevated but free T4 is not concerning. Hyperosmolar hyponatremia. Continue holding Lasix for now. Continue with PROJECT ARCHITECT amlodipine. We will obtain bilateral knee and lumbar x-rays. We will also obtain transthoracic echo. Request PT/OT. (2) Hypothermia: (3) Ambulatory dysfunction: (4) Bradycardia: (5) SIRS (systemic inflammatory response syndrome): (6) Hyponatremia: (7) Subclinical hypothyroidism: (8) Malignant neoplasm of upper-inner quadrant of left breast in female, estrogen receptor positive: (9) HTN (hypertension): (10) Dyslipidemia: (11) History of total right knee replacement: (12) Hypothermia: (13) Lumbar spondylosis: Admission and Anticipated Discharge Date Admission Date: July 26, 2020 Subjective Doing okay this morning. She is awake, alert and oriented x3. Orts she has been feeling weak lately. Her primary concern was also she noted her temperature to be around 91-92 at home. Denies any chest pain, cough or any sore throat. Denies any fever chills or diaphoresis. Denies any headache but does report dizziness. Denies any abdominal pain, diarrhea or dysuria. Denies any other weakness. Review of Systems Review of Systems: All systems reviewed & are unremarkable except as noted in HPI & below Physical Exam Physical Exam: General: A&Ox3. Not appear to be in any distress, currently having breakfast HENT: NCAT, MMM, EOMI Eyes: PERRLA Neck: Supple, normal range of motion CVS: normal rate and rhythm Resp: b/l breath sound Abdomen: Soft, distended nontender Extremities: Trace lower extremity edema Neuro: face symmetric, strength grossly equal, no focal deficit Skin: warm and dry, no rashes/lesions/errythema MSK: normal ROM, no joint swelling/erythema Results & Data Results & Data ([facility]) Vital Signs (Past 12 Hours) Vital Signs Temp Pulse Pulse Resp BP Pulse Ox 07/27/20 11:44 36.4 C L 59 L 18 130/75 99 07/27/20 08:00 60 07/27/20 07:57 36.5 C 63 16 157/83 H 95 07/27/20 04:46 36.7 C 72 20 109/69 97 (1) Hypothermia Encounter type: initial encounter Qualified Code(s): T68.XXXA - Hypothermia, initial encounter
--- NOTE | 2020-07-27 16:37 | XRay Report ---
XR lumbar spine 2-3V CLINICAL HISTORY: Low back pain COMPARISON STUDY: No previous studies for comparison. FINDINGS: There is moderate colonic stool. There is a mild spinal curvature convex to the right. The bones are osteopenic. There are moderately advanced multilevel degenerative changes. There is a grade 1 spondylolisthesis of L3 on L4. No fractures or destructive lesions identified IMPRESSION: 1. Osteopenia, mild lateral curvature, and moderate multilevel degenerative change 2. No acute fractures identified. ACT 112: Negative or not required by law. Electronically signed by: Joshua Bradley M.D. 07/27/2020 4:36 PM
--- NOTE | 2020-07-27 16:48 | XRay Report ---
XR knee LT 1 or 2V routine CLINICAL HISTORY: b/l knee pain COMPARISON: Knee radiographs December 28, 2015. FINDINGS: No acute fracture is noted. There is no suspicious osseous lesion. There is a moderate to large left knee joint effusion. Numerous joint bodies are present. There is severe patellofemoral com partment osteophytosis. There is moderate medial compartment joint space narrowing with osteophytosis . IMPRESSION: 1. No acute fracture. 2. Left knee joint effusion. Multiple joint bodies. 3. Moderate to severe left knee osteoarthritis, most pronounced within the patellofemoral and medial compartments. ACT 112: Negative or not required by law. Electronically signed by: Nik Swenson M.D. 07/27/2020 4:47 PM
[2020-07-27] MEDS: ATORVASTATIN 10 MG TAB PO SCH (20:21)
[2020-07-28] MEDS ORDERED: SODIUM CHLORIDE 0.9% 500 ML IV ONE ×2 (01:41→22:01)
[2020-07-28 08:41] LABS: Basophils # (auto) 0.01 K/uL (0-0.2); Basophils % (auto) 0.2 %; Eosinophils # (auto) 0.05 K/uL (0-0.5); Eosinophils % (auto) 1.2 %; Hematocrit (blood only) 34.1 % (37-47); Hemoglobin 11.5 g/dL (12.0-16.0); Immature Granulocytes # (auto) 0.01 K/uL (0.00-0.02); Immature Granulocytes % (auto) 0.2 %; Lymphocytes # (auto) 1.45 K/uL (1.2-3.4); Lymphocytes % (auto) 34.3 %; Mean Corpuscular Hemoglobin 30.2 pg (25-34); Mean Corpuscular Hgb Conc 33.7 g/dL (32-36); Mean Corpuscular Volume 89.5 fL (80-100); Mean Platelet Volume 10.3 fL (7.4-10.4); Monocytes # (auto) 0.29 K/uL (0.11-0.59); Monocytes % (auto) 6.9 %; Neutrophils # (auto) 2.42 K/uL (1.4-6.5); Neutrophils % (auto) 57.2 %; Platelet Count 167 K/uL (130-400); RDW Coefficient of Variation 13.6 % (11.5-14.5); RDW Standard Deviation 44.4 fL (36.4-46.3); Red Blood Count 3.81 M/uL (4.2-5.4); White Blood Count 4.23 K/uL (4.8-10.8)
[2020-07-28] MEDS: ANASTROZOLE 1 MG TAB PO SCH (08:44)
[2020-07-28] MEDS: FLUTICASONE PROPIONATE NA SPR 16 GM BTL SCH (08:44)
[2020-07-28] MEDS: ENOXAPARIN INJ 30 MG/0.3 ML SYR SQ SCH (08:45)
[2020-07-28] MEDS: lisinopril 40 MG TAB PO SCH (08:45)
[2020-07-28] MEDS: MULTIVITAMIN TAB PO SCH (08:45)
[2020-07-28 09:04] LABS: Albumin Level 3.1 gm/dl (3.4-5.0); BUN Creatinine Ratio 14.1 (10-20); Calcium 9.6 mg/dl (8.5-10.1); Creatinine Clr Calc Pharmacy 64.3 ml/min; Est GFR (African American) 107.2; Est GFR (Non-African American) 92.5; Potassium 4.1 mmol/L (3.5-5.1)
[2020-07-28 09:07] LABS: Albumin Globulin Ratio 0.8 (0.9-2); Bilirubin,Total 0.3 mg/dl (0.2-1); Globulin 3.8 gm/dl (2.5-4.0); Total Protein 6.9 gm/dl (6.4-8.2)
[2020-07-28 09:36] LABS: Lyme Ab IgG w/WB Rflx Negative (Negative); Lyme Ab IgM w/WB Rflx Negative (Negative)
--- NOTE | 2020-07-28 13:47 | Hospitalist Progress Note ---
Date of Service July 28, 2020 Assessment & Plan (1) Weakness: Patient is 74-year-old female with past medical history of breast cancer, hypertension, right total knee replacement, allergic rhinitis, lower extremities edema and lumbar spondylosis presented to the ED with generalized weakness that has been going on for roughly 2 weeks. Reports the weakness is progressively getting worse. She reports that she has been having trouble walking and have been short of. Also reports that she noticed hypothermia at home with temperature in the 90-93. Patient patient was found to be hyponatremic and bradycardic. Admission CT head was obtained which was negative for any concerning findings. Covert 19 was negative. CBC was unremarkable. BMP was nonconcerning except hyponatremia. LFTs were mildly deranged. Patient reports in June he had a fall and since then she has not been feeling good. She started having back pain since the fall. Was working with therapy. Denies any loss of bladder or bowel control. Ultrasound without any acute concerns possibly some sludge. Lyme and Anaplasma is negative. Weakness possibly due to subclinical hypothyroidism and hyponatremia Chest x-ray without any acute findings. Blood and urine cultures were obtained. Negative thus far. EKG with a sinus bradycardia. Today her bradycardia is improved. Continue to hold beta-halima given bradycardia and hypothermia. TSH is elevated but free T4 is not concerning. However, hypothermia is improved. Hyperosmolar hyponatremia. Continue holding Lasix for now. Continue with BUDGET AND POLICY ANALYST amlodipine. Number x-ray without any concerning findings. Bilateral knee x-rays were obtained. Left knee with effusion orthopedics has been consulted for further input. Transthoracic echo with EF of 60%. Physical therapy recommended home whereas occupational therapy recommended rehab. (2) Hypothermia: (3) Ambulatory dysfunction: (4) Bradycardia: (5) SIRS (systemic inflammatory response syndrome): (6) Hyponatremia: (7) Subclinical hypothyroidism: (8) Malignant neoplasm of upper-inner quadrant of left breast in female, estrogen receptor positive: (9) HTN (hypertension): (10) Dyslipidemia: (11) History of total right knee replacement: (12) Lumbar spondylosis: Admission and Anticipated Discharge Date Admission Date: July 26, 2020 Subjective Overnight patient was hypothermic with temperature of 34.7. Patient was given Rachael hugger. This morning she is doing okay. She usually runs around 96. Does feel some shortness of breath but that is chronic. Denies any chest pain, ab dominal pain, diarrhea, dysuria, cough, sore throat or any runny nose. Review of Systems Review of Systems: All systems reviewed & are unremarkable except as noted in HPI & below Physical Exam Physical Exam: General: A&Ox3. Not appear to be in any distress, currently having breakfast HENT: NCAT, MMM, EOMI Eyes: PERRLA Neck: Supple, normal range of motion CVS: normal rate and rhythm Resp: b/l breath sound Abdomen: Soft, distended nontender Extremities: Trace lower extremity edema Neuro: face symmetric, strength grossly equal, no focal deficit Skin: warm and dry, no rashes/lesions/errythema MSK: normal ROM, no joint swelling/erythema Results & Data Results & Data ([facility]) Vital Signs (Past 12 Hours) Vital Signs Temp Pulse Resp BP Pulse Ox 07/28/20 11:49 37.0 C 78 16 133/74 95 07/28/20 08:20 36.7 C 84 18 129/63 96 07/28/20 03:29 37.0 C 73 16 128/74 (1) Hypothermia Encounter type: initial encounter Qualified Code(s): T68.XXXA - Hypothermia, initial encounter
--- NOTE | 2020-07-28 15:01 | Electrocardiogram Report ---
Test Reason : Blood Pressure : / mmHG Vent. Rate : 046 BPM Atrial Rate : 046 BPM P-R Int : 170 ms QRS Dur : 082 ms QT Int : 486 ms P-R-T Axes : 109 -02 024 degrees QTc Int : 425 ms Poor data quality, interpretation may be adversely affected Sinus bradycardia Borderline ECG No previous ECGs available Confirmed by Oliver Tee ([id number]) on 07/28/2020 3:01:44 PM Referred By: REFERRED SELF Confirmed By:Oliver Tee
[2020-07-28] MEDS ORDERED: hydrALAZINE HCL 20 MG/ML VIAL IV PRN (16:08)
[2020-07-28] MEDS: amLODIPine BESYLATE 5 MG TAB PO SCH (20:08)
[2020-07-28] MEDS: ATORVASTATIN 10 MG TAB PO SCH (20:08)
[2020-07-28] MEDS ORDERED: OLANZapine 10 MG/2.1 ML SDV IM PRN (20:57)
--- NOTE | 2020-07-28 21:13 | Communication Note ---
Date of Service: July 28, 2020 Notified by RN of patient confusion and agitation. Patient hypothermic. SBP 170s serum sodium 123 AP Delirium Multifactorial : Acute on chronic hyponatremia Hypertensive urgency ? Coreg withdrawal Rule out UTI Careful correction of sodium with NSS Nephrology consult if without improvement in a.m. Resume Coreg at 3.125 mg p.o. twice daily Check UA One to one nursing care as needed, Zyprexa as needed Patient daughter requesting for updates from a.m. provider. Ms. Senia Cummings, . Will relay to AM provider. ADDENDUM : Temperature elevation noted in a.m. Patient complaining of more left knee pain as usual when "I'm nervous". AP Possible septic arthritis, left History recurrent left knee effusion Cultures, check lactic acid Daptomycin, cefepime Touchbase with Orthopedics regarding joint tap prior to antibiotics. Case discussed with Dr. Orr. He does not feel joint aspiration indicated for now as he does not think left knee is infected. Will relay to AM provider.
[2020-07-28 21:43] LABS: BUN Creatinine Ratio 24.8 (10-20); Calcium 9.6 mg/dl (8.5-10.1); Creatinine Clr Calc Pharmacy 85.7 ml/min; Est GFR (African American) 117.9; Est GFR (Non-African American) 101.7; Potassium 4.3 mmol/L (3.5-5.1)
[2020-07-28 21:53] LABS: Albumin Level 3.3 gm/dl (3.4-5.0); Bilirubin Direct 0.2 mg/dl (0-0.2); Bilirubin,Total 0.2 mg/dl (0.2-1); Magnesium 1.6 mg/dl (1.8-2.4); Total Protein 7.5 gm/dl (6.4-8.2)
[2020-07-28] MEDS: carvediloL 3.125 MG TAB PO SCH (21:54)
[2020-07-28] MEDS ORDERED: MAGNESIUM SULFATE / D5W 1 GM/100 ML BAG IV ONE (22:15)
[2020-07-29 01:04] LABS: Appearance Urine Clear (Clear); Bilirubin Urine Negative (Negative); Blood Urine Negative (Negative); Color Urine Yellow; Glucose Urine UA Trace (Negative); Ketones Urine Negative (Negative); Leukocyte Esterase Urine Negative (Negative); Nitrite Urine Negative (Negative); Protein Urine Negative (Negative); Specific Gravity Urine 1.011 (1.000-1.030); Urobilinogen Urine Negative (Negative); pH Urine 7.5 (4.5-7.5)
[2020-07-29] MEDS ORDERED: ACETAMINOPHEN 325 MG TAB PO STA (05:48)
--- NOTE | 2020-07-29 06:44 | Orthopedic Consultation ---
Date of Service July 29, 2020 Assessment & Plan (1) Left knee DJD: She is having left knee pain and effusion secondary to primary osteoarthritis of her left knee. She has been having serial aspirations and injections by Dr. Myles every 3 months. The last aspiration and injection was on July 05. She will not be a candidate for a repeat cortisone injection until October 03. I do not see any other signs of inflammatory arthropathy of her left knee. There are no signs of infection. With regards to her lumbar spine she does have some arthritis which may be contributing to some of her back pain, however her weakness does not seem to be secondary to a radiculopathy. We will continue oral pain medications for her left knee. She can be a up and weightbearing as tolerated. She should follow-up with Dr. Myles as scheduled in September for a repeat aspiration injection. The other course of treatment would be a left knee replacement however, she is not a good surgical candidate at this time. History of Present Illness Reason for Consultation: Left knee pain and effusion. Requesting Physician: Dr. Saldana. Attending Physician: Hannah Dos Santos MD The patient is a pleasant 74-year-old female has been having a 2-week history of increasing generalized weakness. She has been having trouble ambulating. She did have a fall back in June and is been having back pain since then. She would is admitted to the hospital with bradycardia and some mild hypothermia. She was also found to have some subclinical hyponatremia and hypothyroidism. She is currently being worked up by the hospitalist for her generalized weakness. She is also complaining of left knee pain and swelling. She has a history of a right knee replacement done by Dr. Myles several years ago. She is done fairly well with that. Unfortunate she has been dealing with left knee pain and swelling. Previous x-rays and clinical examination from Dr. Myles's notes have been diagnostic for arthritis of the left knee. He has been doing serial aspiration and injections of the left knee every 3 months. Her last aspiration and injection was done on July 05. Unfortunately some of the effusion has returned. She still having some pain in the left knee. Orthopedics was consulted to evaluate and treat. Allergies Allergy/AdvReac Type Severity Reaction Status Date / Time amoxicillin Allergy Intermediate Rash Verified 07/05/20 14:04 adhesive tape AdvReac Verified 07/05/20 14:04 Home Medications Medication Instructions Recorded Confirmed Type anastrozole 1 mg tablet 1 mg PO DAILY 11/17/18 07/26/20 History carvedilol 6.25 mg tablet 6.25 mg PO PM tab 05/20/19 07/26/20 History albuterol sulfate 90 mcg/actuation 2 puff INHALATION Q4H PRN g 05/18/20 07/26/20 History aerosol inhaler ammonium lactate 12 % topical cream 1 applic TOP DAILY 05/18/20 07/26/20 History atorvastatin 10 mg tablet 10 mg PO QPM 05/18/20 07/26/20 History carvedilol 12.5 mg tablet 12.5 mg PO QAM tab 05/18/20 07/26/20 History clindamycin HCl 150 mg capsule 150 mg PO TID PRN 05/18/20 07/26/20 History furosemide 20 mg tablet 20 mg PO QAM 05/18/20 07/26/20 History multivitamin 1 tab PO DAILY 05/18/20 07/26/20 History acetaminophen [Acetaminophen Extra 500 mg PO Q8H PRN 07/26/20 07/26/20 History Strength] albuterol sulfate [Proventil] 2.5 mg CONTINUOUS NEBULIZATION Q4H 07/26/20 07/26/20 History PRN amlodipine 5 mg PO PM 07/26/20 07/26/20 History cholecalciferol (vitamin D3) 50 mcg PO DAILY 07/26/20 07/26/20 History fluticasone propionate 2 spray INTRANASAL QAM 07/26/20 07/26/20 History lisinopril 40 mg PO DAILY 07/26/20 07/26/20 History Past Med/Surg History Medical History Allergic rhinitis Person's cyst of knee Benign neoplasm of colon Cataract Dyslipidemia Edema of both legs FH: colonic polyps HTN, goal below 140/90 Hx of vaginal delivery Lumbar spondylosis Menopause Painful total knee replacement, right Surgical History History of lumpectomy of left breast History of partial hysterectomy Family History Mother Musculoskeletal disease Blood disorder anemia, at age 91y Father , dies at age 81 Diabetes 1.5, managed as type 2 Hypertension Brother Hypertension Sister , UNILATERAL, POSTMENOPAUSAL BREAST CANCER Breast cancer Social History Smoking Status: Never smoker Hx Alcohol Use: No Hx Substance Use: No Preferred Language: Hungarian Communication Ability: Effective Visual Impairment: Partially Limited Hearing Ability: Normal Virtualization Architect Required: No Beliefs That Will Affect Care: None marital status: Current Living Situation: Spouse current occupation: homemaker Other Information That Helps Us Care for You: No Feels Safe at Home: Yes Safety Concerns: Feels Safe At This Time caffeine: Yes during the past year weight has: remained stable Assistive Devices: Glasses Review of Systems All systems reviewed & are unremarkable except as noted in HPI & below. Physical Exam On physical examination of the left knee, there is a 2+ effusion. She is able to get her leg out to full extension. She has range of motion from 0 to 120 degrees. She has no instability. She has tenderness palpation over the both the distal medial and lateral femoral condyles. There is no signs of infection. There is no signs of gout or any other inflammatory arthropathies. She is having some pain of her lower lumbar spine. She does not have any shooting pains down her legs. She has good muscle strength in her quads calves and dorsiflexors of her foot. I do not see any signs of radicular pain. Constitutional WD/WN, vitals as above Eyes PERRL, conjunctivae normal, anicteric sclerae ENMT external ear and nose normal, oropharynx normal Neck trachea midline, no thyromegaly Respiratory normal respiratory effort Cardiovascular RRR, no murmur, no edema Gastrointestinal (Abdomen) normal bowel sounds, soft, nontender, no hepatosplenomegaly Psychiatric A+Ox3, euthymic affect Results & Data Results & Data Laboratory Results . Diagnostic Findings X-rays of the left knee ordered by the hospitalist and and independently visualized by myself do show signs of advanced osteoarthritis. There is joint space narrowing osteophyte formation and signs of [id number] articulation. X-rays of the lumbar spine ordered by the hospitalist and independently visualized by myself do show advanced osteoarthritis with a well-maintained lumbar lordosis. There is arthritis of L4-5 and L5-S1. There is a slight spondylolisthesis at L4-5.. PG Care Time/CCT Total # of Minutes Spent Total Time Spent with Patient: Total time spent is greater than 50% in coordination of care (as documented) at patient's floor/unit and/or counseling patient: Coding Level of Care Code 30885 Inpt Consult Level 4 Diagnoses Left knee DJD M17.12
[2020-07-29 07:09] LABS: Eosinophils # (auto) 0.06 K/uL (0-0.5); Eosinophils % (auto) 1.5 %; Hematocrit (blood only) 32.7 % (37-47); Hemoglobin 11.5 g/dL (12.0-16.0); Immature Granulocytes # (auto) 0.01 K/uL (0.00-0.02); Immature Granulocytes % (auto) 0.2 %; Lymphocytes # (auto) 1.14 K/uL (1.2-3.4); Lymphocytes % (auto) 27.6 %; Mean Corpuscular Hemoglobin 30.6 pg (25-34); Mean Corpuscular Hgb Conc 35.2 g/dL (32-36); Mean Platelet Volume 10.3 fL (7.4-10.4); Monocytes # (auto) 0.62 K/uL (0.11-0.59); Neutrophils % (auto) 55.7 %; Platelet Count 172 K/uL (130-400); RDW Coefficient of Variation 13.2 % (11.5-14.5); RDW Standard Deviation 41.9 fL (36.4-46.3); Red Blood Count 3.76 M/uL (4.2-5.4); White Blood Count 4.13 K/uL (4.8-10.8)
[2020-07-29] MEDS ORDERED: DAPTOmycin 300 MG in SYRINGE 0 ML IV SCH (07:15)
[2020-07-29 07:52] LABS: BUN Creatinine Ratio 14.9 (10-20); Calcium 9.2 mg/dl (8.5-10.1); Creatinine Clr Calc Pharmacy 85.7 ml/min; Est GFR (African American) 117.9; Est GFR (Non-African American) 101.7; Magnesium 1.8 mg/dl (1.8-2.4); Potassium 4.1 mmol/L (3.5-5.1)
--- NOTE | 2020-07-29 07:59 | XRay Report ---
XR chest 1V portable CLINICAL HISTORY: fever COMPARISON STUDY: Chest radiograph July 26, 2020. FINDINGS: Lung volumes are normal. Linear left midlung opacity reflects atelectasis. There is no pneu mothorax or pleural effusion. Cardiac size is stable. Mediastinal contours are normal. There is no ev idence for pulmonary edema. IMPRESSION: No acute cardiopulmonary findings. ACT 112: Negative or not required by law. Electronically signed by: Nik Swenson M.D. 07/29/2020 7:57 AM
[2020-07-29] MEDS: CEFEPIME 2,000 MG in SYRINGE 7.5 ML IV SCH ×2 (08:04→20:19)
[2020-07-29] MEDS: MULTIVITAMIN TAB PO SCH (08:05)
[2020-07-29] MEDS: ANASTROZOLE 1 MG TAB PO SCH (08:05)
[2020-07-29] MEDS: lisinopril 40 MG TAB PO SCH (08:05)
[2020-07-29] MEDS: ENOXAPARIN INJ 30 MG/0.3 ML SYR SQ SCH (08:05)
[2020-07-29] MEDS: FLUTICASONE PROPIONATE NA SPR 16 GM BTL SCH (08:06)
[2020-07-29] MEDS: carvediloL 3.125 MG TAB PO SCH ×2 (08:52→20:20)
[2020-07-29] MEDS ORDERED: CEFEPIME CONSULT ACTIVE PRN (09:00)
--- NOTE | 2020-07-29 09:58 | Nephrology Consultation ---
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 Repeat plasma osmoles urine osmoles and urine sodium altogether, in a.m. again (2) Bradycardia: Likely continue beta-halima could be a component of hypothyroidism involved, And is by the primary. History of Present Illness Reason for Consultation: Hyponatremia Attending Physician: Hannah Dos Santos MD History of Present Illness Patient in question is a 74-year-old female with a past history of left breast cancer SP surgery and radiation hypertension hyperlipidemia presented to the ER on 26 July with complaints of bilateral leg weakness has been worsening over the last 2 to 3-week, , she is alert and oriented stop no problems with urine and never had any kidney issues. She was also found to be bradycardic, and hypothermic as stated before. Labs revealed hyponatremia (131), subclinical hypo thyroidism with normal T4. Sodium on presentation was 131 which has dropped down to 124 over the last 3 days. She denies drinking plenty of water, of being alcoholic. Has been restricting her salt intake after advised by the complaint evaluation supervisor to do so for hypertension. She was previously on hydrochlorothiazide which was converted to furosemide few months back. Medically she looks euvolemic, is alert and oriented and could give me a complete history. Allergies Allergy/AdvReac Type Severity Reaction Status Date / Time amoxicillin Allergy Intermediate Rash Verified 07/05/20 14:04 adhesive tape AdvReac Verified 07/05/20 14:04 Home Medications Medication Instructions Recorded Confirmed Type anastrozole 1 mg tablet 1 mg PO DAILY 11/17/18 07/26/20 History carvedilol 6.25 mg tablet 6.25 mg PO PM tab 05/20/19 07/26/20 History albuterol sulfate 90 mcg/actuation 2 puff INHALATION Q4H PRN g 05/18/20 07/26/20 History aerosol inhaler ammonium lactate 12 % topical cream 1 applic TOP DAILY 05/18/20 07/26/20 History atorvastatin 10 mg tablet 10 mg PO QPM 05/18/20 07/26/20 History carvedilol 12.5 mg tablet 12.5 mg PO QAM tab 05/18/20 07/26/20 History clindamycin HCl 150 mg capsule 150 mg PO TID PRN 05/18/20 07/26/20 History furosemide 20 mg tablet 20 mg PO QAM 05/18/20 07/26/20 History multivitamin 1 tab PO DAILY 05/18/20 07/26/20 History acetaminophen [Acetaminophen Extra 500 mg PO Q8H PRN 07/26/20 07/26/20 History Strength] albuterol sulfate [Proventil] 2.5 mg CONTINUOUS NEBULIZATION Q4H 07/26/20 07/26/20 History PRN amlodipine 5 mg PO PM 07/26/20 07/26/20 History cholecalciferol (vitamin D3) 50 mcg PO DAILY 07/26/20 07/26/20 History fluticasone propionate 2 spray INTRANASAL QAM 07/26/20 07/26/20 History lisinopril 40 mg PO DAILY 07/26/20 07/26/20 History Patient History Medical History Allergic rhinitis Person's cyst of knee Benign neoplasm of colon Cataract Dyslipidemia Edema of both legs FH: colonic polyps HTN, goal below 140/90 Hx of vaginal delivery Lumbar spondylosis Menopause Painful total knee replacement, right Surgical History History of lumpectomy of left breast History of partial hysterectomy Family History Mother Musculoskeletal disease Blood disorder anemia, at age 91y Father , dies at age 81 Diabetes 1.5, managed as type 2 Hypertension Brother Hypertension Sister , UNILATERAL, POSTMENOPAUSAL BREAST CANCER Breast cancer Social History Smoking Status: Never smoker Hx Alcohol Use: No Hx Substance Use: No Preferred Language: Guamanian Communication Ability: Effective Visual Impairment: Partially Limited Hearing Ability: Normal Risk Tech Required: No Beliefs That Will Affect Care: None marital status: Current Living Situation: Spouse current occupation: homemaker Other Information That Helps Us Care for You: No Feels Safe at Home: Yes Safety Concerns: Feels Safe At This Time caffeine: Yes during the past year weight has: remained stable Assistive Devices: Glasses Review of Systems Review of Systems: All systems reviewed & are unremarkable except as noted in HPI & below Physical Exam Physical Exam: General: no distress, WDWN Head: normocephalic, atraumatic Eyes: PERRL, EOM's intact, conjunctiva non-injected, anicteric ENT: normal inspection external ears, nose, mucous membranes moist Neck: supple, trachea midline Lungs: clear, no respiratory distress, no wheezing/rhonchi/rales CV: bradycardia, rate 52, regular rhythm, no JVD, no pretibial edema Abd: normal BS, soft, non-tender Ext: no cyanosis, no calf tenderness Neuro: A&O x 3, bilateral arms strength 4/5, bilateral lower legs 3-4/5 Results & Data ([facility]) Vital Signs (Past 12 Hours) Vital Signs Temp Pulse Pulse Resp BP Pulse Ox 07/29/20 08:11 36.7 C 75 16 163/86 H 94 07/29/20 06:45 36.8 C 07/29/20 05:12 37.8 C H 88 18 155/90 H 99 07/29/20 00:50 34.8 C L 07/29/20 00:27 62 18 151/77 H 99 07/29/20 00:00 74
[2020-07-29] MEDS: UREA (URE-NA) 15 GM PACK PO SCH ×2 (12:35→20:20)
--- NOTE | 2020-07-29 12:35 | Hospitalist Progress Note ---
Date of Service July 29, 2020 Assessment & Plan (1) Weakness: Patient is 74-year-old female with past medical history of breast cancer, hypertension, right total knee replacement, allergic rhinitis, lower extremities edema and lumbar spondylosis presented to the ED with generalized weakness that has been going on for roughly 2 weeks. Reports the weakness is progressively getting worse. She reports that she has been having trouble walking and have been short of breath. Also reports that she noticed hypothermia at home with temperature in the 90-93. Admission patient was found to be hyponatremic and bradycardic. Admission CT head was obtained which was negative for any concerning findings. Covert 19 was negative. CBC was unremarkable. BMP was nonconcerning except hyponatremia. LFTs were mildly deranged. Patient reports in June he had a fall and since then she has not been feeling good. She started having back pain since the fall. Was working with therapy. Denies any loss of bladder or bowel control. Ultrasound without any acute concerns possibly some sludge. Lyme and Anaplasma is negative. Weakness possibly due to subclinical hypothyroidism and hyponatremia. Today hyponatremia is worse. Nephrology has been consulted. Nephrology believes is possibly component of SIADH. Chest x-ray without any acute findings. Blood and urine cultures were obtained. Negative thus far. EKG with a sinus bradycardia on admission. TSH is elevated but free T4 is not concerning. T.max of 37.8 overnight. Continue with TRADING FLOOR OPERATOR amlodipine. Lumbar x-ray without any concerning findings. Bilateral knee x-rays were obtained. Left knee with effusion orthopedics has been consulted for further input. Orthopedics does not believe that left knee is infected and does not need to be drained at the moment. Transthoracic echo with EF of 60%. Physical therapy recommended home whereas occupational therapy recommended rehab. (2) Altered mental status: Possibly related to delirium. Subclinical hypothyroidism/hyponatremia/possibly sepsis likely contributing as well. (3) Hypothermia: As above. Sepsis work-up has been negative thus far. TSH is not concerning. Will obtain cortisol level today. Carvedilol has been restarted. (4) Ambulatory dysfunction: Evaluated by orthopedics for left knee effusion. Patient to follow-up with orthopedics as an outpatient. To work with PT/OT. (5) Bradycardia: Weight has improved. Carvedilol has been restarted. (6) SIRS (systemic inflammatory response syndrome): Blood cultures have been negative thus far. Patient was started on daptomycin and cefepime overnight. Blood cultures were reobtained. T-max of 37.8 overnight. (7) Hyponatremia: Hyperosmolar hyponatremia. Today sodium at 123 from 129. Nephrology has been consulted for further input. Patient to be started on uremia. Continue holding Lasix for now as per nephrology. (8) Subclinical hypothyroidism: (9) Malignant neoplasm of upper-inner quadrant of left breast in female, estrogen receptor positive: (10) HTN (hypertension): Continue with TRADING FLOOR OPERATOR amlodipine and lisinopril. Due to persistent hypertension overnight, carvedilol was restarted. (11) Dyslipidemia: (12) History of total right knee replacement: (13) Lumbar spondylosis: Admission and Anticipated Discharge Date Admission Date: July 26, 2020 was updated today over the phone. Subjective Overnight patient was found to be confused along with worsening hyponatremia and hypertensive. Morning patient is awake and alert. She is oriented to time and person but not to place. Appears to be confused at the moment. Denies any complaints. Review of Systems Review of Systems: All systems reviewed & are unremarkable except as noted in HPI & below Physical Exam Physical Exam: General: Awake and alert HENT: NCAT, MMM, EOMI Eyes: PERRLA Neck: Supple, normal range of motion CVS: normal rate and rhythm Resp: b/l breath sound Abdomen: Soft, distended nontender Extremities: Trace lower extremity edema Neuro: face symmetric, strength grossly equal, no focal deficit Skin: warm and dry MSK: normal ROM, no joint swelling/erythema Results & Data Results & Data ([facility]) Vital Signs (Past 12 Hours) Vital Signs Temp Pulse Resp BP Pulse Ox 07/29/20 11:55 36.6 C 64 16 164/87 H 96 07/29/20 08:11 36.7 C 75 16 163/86 H 94 07/29/20 06:45 36.8 C 07/29/20 05:12 37.8 C H 88 18 155/90 H 99 07/29/20 00:50 34.8 C L 07/29/20 00:27 62 18 151/77 H 99 (1) Hypothermia Encounter type: initial encounter Qualified Code(s): T68.XXXA - Hypothermia, initial encounter
[2020-07-29 15:30] LABS: BUN Creatinine Ratio 52.5 (10-20); Calcium 9.5 mg/dl (8.5-10.1); Creatinine Clr Calc Pharmacy 70.6 ml/min; Est GFR (African American) 110.6; Est GFR (Non-African American) 95.4; Potassium 3.6 mmol/L (3.5-5.1)
[2020-07-29] MEDS: amLODIPine BESYLATE 5 MG TAB PO SCH (20:20)
[2020-07-29 23:02] LABS: BUN Creatinine Ratio 77.2 (10-20); Calcium 9.4 mg/dl (8.5-10.1); Creatinine Clr Calc Pharmacy 73.4 ml/min; Est GFR (Non-African American) 96.7; Potassium 3.7 mmol/L (3.5-5.1)
[2020-07-30] MEDS ORDERED: DAPTOmycin 275 MG in SYRINGE 0 ML IV SCH (08:00)
[2020-07-30] MEDS: ANASTROZOLE 1 MG TAB PO SCH (08:22)
[2020-07-30] MEDS: lisinopril 40 MG TAB PO SCH (08:23)
[2020-07-30] MEDS: MULTIVITAMIN TAB PO SCH (08:23)
[2020-07-30] MEDS: carvediloL 3.125 MG TAB PO SCH ×2 (08:23→20:10)
[2020-07-30] MEDS: FLUTICASONE PROPIONATE NA SPR 16 GM BTL SCH (08:23)
[2020-07-30] MEDS: UREA (URE-NA) 15 GM PACK PO SCH ×3 (08:23→20:10)
[2020-07-30] MEDS: ENOXAPARIN INJ 30 MG/0.3 ML SYR SQ SCH (08:24)
[2020-07-30] MEDS: CEFEPIME 2,000 MG in SYRINGE 7.5 ML IV SCH ×2 (08:27→20:09)
--- NOTE | 2020-07-30 08:45 | Orthopedic Progress Note ---
Date of Service July 30, 2020 Assessment & Plan (1) Left knee DJD: She has an effusion of her left knee and known osteoarthritis. She has been getting serial aspirations and injections by Dr. Myles in our office. Her last aspiration and injection was on July 05 and she is not due for her next one for 3 months. I will see any signs of infection and no reason to aspirate the knee at this point. She can follow-up with Dr. Myles as previously scheduled. If you have any further questions please feel free to contact me at [phone] Subjective The patient was seen and examined at bedside this morning. Overall she says her knee is feeling better today. She is sitting up eating breakfast with her left leg in full extension. She has no new complaints.. Review of Systems All systems reviewed & are unremarkable except as noted in HPI & below. Physical Exam On physical examination of her left knee, there is a 1+ effusion. There is no signs of infection. She does not have tenderness to palpation around her knee at bedside today.. Results & Data Results & Data Laboratory Results . Diagnostic Findings . PG Care Time/CCT Total # of Minutes Spent Total Time Spent with Patient: Total time spent is greater than 50% in coordination of care (as documented) at patient's floor/unit and/or counseling patient: Coding Level of Care Code 42090 Subseq Hosp Care Lvl 1 Diagnoses Left knee DJD M17.12
--- NOTE | 2020-07-30 09:53 | Nephrology Progress Note ---
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 Remains alert and oriented. Will start Lasix 20 mg today only if sodium less than 130 today. BMPs inPUT/ output Repeat plasma osmoles urine osmoles and urine sodium altogether. (2) Bradycardia: -Resolved, restarted on beta-halima And is by the primary. Admission and Anticipated Discharge Date Admission Date: July 26, 2020 Subjective Resting comfortably in bed no new complaints, remains alert and oriented Review of Systems Review of Systems: All systems reviewed & are unremarkable except as noted in HPI & below Physical Exam Physical Exam: General: no distress, WDWN Head: normocephalic, atraumatic Eyes: PERRL, EOM's intact, conjunctiva non-injected, anicteric ENT: normal inspection external ears, nose, mucous membranes moist Neck: supple, trachea midline Lungs: clear, no respiratory distress, no wheezing/rhonchi/rales CV: bradycardia, rate 52, regular rhythm, no JVD, no pretibial edema Abd: normal BS, soft, non-tender Ext: no cyanosis, no calf tenderness Neuro: A&O x 3, bilateral arms strength 4/5, bilateral lower legs 3-4/5 Results & Data ([facility]) Vital Signs (Past 12 Hours) Vital Signs Temp Pulse Pulse Resp BP Pulse Ox 07/30/20 07:13 36.6 C 62 18 152/91 H 94 07/30/20 05:02 36.2 C L 55 L 14 110/66 96 07/30/20 01:58 36.7 C 66 14 151/87 H 97 07/30/20 00:08 82 Laboratory Results 07/29/20 06:43 07/29/20 22:38
[2020-07-30] MEDS ORDERED: FUROSEMIDE 20 MG TAB PO SCH (10:00)
[2020-07-30 14:19] LABS: BUN Creatinine Ratio 84.8 (10-20); Calcium 9.3 mg/dl (8.5-10.1); Est GFR (African American) 112.8; Est GFR (Non-African American) 97.3
--- NOTE | 2020-07-30 14:33 | Hospitalist Progress Note ---
Date of Service July 30, 2020 Assessment & Plan (1) Weakness: Patient is 74-year-old female with past medical history of breast cancer, hypertension, right total knee replacement, allergic rhinitis, lower extremities edema and lumbar spondylosis presented to the ED with generalized weakness that has been going on for roughly 2 weeks. Reports the weakness is progressively getting worse. She reports that she has been having trouble walking and have been short of breath. Also reports that she noticed hypothermia at home with temperature in the 90-93. Admission patient was found to be hyponatremic and bradycardic. Admission CT head was obtained which was negative for any concerning findings. Covert 19 was negative. CBC was unremarkable. BMP was nonconcerning except hyponatremia. LFTs were mildly deranged. Patient reports in June he had a fall and since then she has not been feeling good. She started having back pain since the fall. Was working with therapy. Denies any loss of bladder or bowel control. Ultrasound without any acute concerns possibly some sludge. Lyme and Anaplasma is negative. Weakness possibly due to subclinical hypothyroidism and acute on chronic hyponatremia. Chest x-ray without any acute findings. Blood and urine cultures were obtained. Negative thus far. EKG with a sinus bradycardia on admission. TSH is elevated but free T4 is not concerning. Hypothermia is improving, lowest temperature 36.2. Continue with [employer] amlodipine. Lumbar x-ray without any concerning findings. Bilateral knee x-rays were obtained. Left knee with effusion orthopedics has been consulted for further input. Orthopedics does not believe that left knee is infected and does not need to be drained at the moment. Transthoracic echo with EF of 60%. Physical therapy recommended home whereas occupational therapy recommended rehab. (2) Altered mental status: Possibly related to delirium. Subclinical hypothyroidism/hyponatremia/possibly sepsis likely contributing as well. (3) Hypothermia: As above. Sepsis work-up has been negative thus far. TSH is not concerning. Will obtain cortisol level today. Carvedilol has been restarted. (4) Ambulatory dysfunction: Evaluated by orthopedics for left knee effusion. Patient to follow-up with orthopedics as an outpatient. To work with PT/OT. (5) Bradycardia: Weight has improved. Carvedilol has been restarted. (6) SIRS (systemic inflammatory response syndrome): Blood cultures have been negative thus far. Patient was started on daptomycin and cefepime overnight. Blood cultures were reobtained. T-max of 37.8 overnight. (7) Hyponatremia: This morning sodium was at 126. However later in the afternoon it was 120. Continue to trend sodium every 8 H. Appreciate nephrology input. 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 Continue the urea 15 g twice daily. Today patient is more awake, alert and oriented. We will continue to trend BMP. Nephrology was notified of sodium. Nephrology carpectomy. Recommend to restart Lasix 20 mg daily and increase urea to 15 3 times daily. (8) Subclinical hypothyroidism: TSH but free T4 is not concerning. (9) Malignant neoplasm of upper-inner quadrant of left breast in female, estrogen receptor positive: (10) HTN (hypertension): Continue with [employer] amlodipine and lisinopril. Carvedilol is restarted. She remains hypertensive, restarting Lasix today. (11) Dyslipidemia: (12) History of total right knee replacement: (13) Lumbar spondylosis: Admission and Anticipated Discharge Date Admission Date: July 26, 2020 Had extensive discussion with her /son and daughter over the phone today and updated about her clinical course. Subjective This morning patient is awake, alert and oriented to time place and person. Overnight there were no major issues. Currently she is having breakfast. Review of system was negative. Patient did not have any major complaints. Last sodium was at 126. Review of Systems Review of Systems: All systems reviewed & are unremarkable except as noted in HPI & below Physical Exam Physical Exam: General: Awake and alert HENT: NCAT, MMM, EOMI Eyes: PERRLA Neck: Supple, normal range of motion CVS: normal rate and rhythm Resp: b/l breath sound Abdomen: Soft, distended nontender Extremities: Trace lower extremity edema Neuro: face symmetric, strength grossly equal, no focal deficit Skin: warm and dry MSK: normal ROM, no joint swelling/erythema Results & Data Results & Data ([facility]) Vital Signs (Past 12 Hours) Vital Signs Temp Pulse Resp BP Pulse Ox 07/30/20 11:13 36.5 C 63 18 155/84 H 97 07/30/20 07:13 36.6 C 62 18 152/91 H 94 07/30/20 05:02 36.2 C L 55 L 14 110/66 96 (1) Hypothermia Encounter type: initial encounter Qualified Code(s): T68.XXXA - Hypothermia, initial encounter
[2020-07-30] MEDS: FUROSEMIDE 20 MG TAB PO SCH (15:51)
[2020-07-30] MEDS: amLODIPine BESYLATE 5 MG TAB PO SCH (20:10)
[2020-07-30 21:56] LABS: BUN Creatinine Ratio 45.2 (10-20); Calcium 9.6 mg/dl (8.5-10.1); Est GFR (African American) 111.3; Potassium 4.4 mmol/L (3.5-5.1)
[2020-07-31 08:00] LABS: BUN Creatinine Ratio 50.8 (10-20); Calcium 9.7 mg/dl (8.5-10.1); Creatinine Clr Calc Pharmacy 76.6 ml/min; Est GFR (African American) 113.6
[2020-07-31] MEDS: UREA (URE-NA) 15 GM PACK PO SCH (08:34)
[2020-07-31] MEDS: MULTIVITAMIN TAB PO SCH (08:37)
[2020-07-31] MEDS: lisinopril 40 MG TAB PO SCH (08:37)
[2020-07-31] MEDS: FUROSEMIDE 20 MG TAB PO SCH (08:38)
[2020-07-31] MEDS: ENOXAPARIN INJ 30 MG/0.3 ML SYR SQ SCH (08:38)
[2020-07-31] MEDS: CEFEPIME 2,000 MG in SYRINGE 7.5 ML IV SCH (08:38)
[2020-07-31] MEDS: carvediloL 3.125 MG TAB PO SCH ×2 (08:38→21:21)
[2020-07-31] MEDS: ANASTROZOLE 1 MG TAB PO SCH (08:39)
[2020-07-31] MEDS: FLUTICASONE PROPIONATE NA SPR 16 GM BTL SCH (08:39)
[2020-07-31] MEDS: SODIUM CHLORIDE 0.9% 1000ML 1,000 ML IV SCH (09:55)
--- NOTE | 2020-07-31 10:31 | Progress Notes ---
DATE: 07/31/2020 SUBJECTIVE: Overnight, sodium actually got worse with the current management. She is otherwise feeling normal. OBJECTIVE: VITAL SIGNS: Blood pressure is 163/93, pulse 72, temperature 36.5, 96% on room air. HEENT: Mucous membranes moist. NECK: Supple. No jugular venous distention. CHEST: Bilateral clear to auscultation. CARDIOVASCULAR: S1, S2 regular. ABDOMEN: Soft, nontender. EXTREMITIES: Shows no edema. LABORATORY TESTS: Reviewed in detail. Sodium this morning was 125, potassium 4.0, BUN 24, creatinine 0.47. Urine osmolarity was 351 and 534 on 2 different testing yesterday. ASSESSMENT AND PLAN: A 74-year-old female whom I have been consulted for management of hyponatremia. Hyponatremia. This is secondary to euvolemic hyponatremia almost certainly caused by SIADH based on the physical examination and the laboratory test. Current management does not seem to be working as a serum sodium really has not changed much and in fact has got worse in the last 2 days. Based on this, I would like to make following changes: RECOMMENDATIONS: 1. Stop urea as it is doing nothing. 2. Add fluid restriction 1500 mL per day. 3. We will give IV Lasix with IV normal saline. IV Lasix for free water diuresis, IV normal saline for both volume and salt load. 4. BMP every 8 hours. 5. Further management will be dictated by the change in the serum sodium. have askd RN to call me with results of BMP Thank you for the consult. RUSSELL
--- NOTE | 2020-07-31 12:44 | Hospitalist Progress Note ---
Date of Service July 31, 2020 Assessment & Plan (1) Weakness: Patient is 74-year-old female with past medical history of breast cancer, hypertension, right total knee replacement, allergic rhinitis, lower extremities edema and lumbar spondylosis presented to the ED with generalized weakness that has been going on for roughly 2 weeks. Reports the weakness is progressively getting worse. She reports that she has been having trouble walking and have been short of breath. Also reports that she noticed hypothermia at home with temperature in the 90-93. On admission patient was found to be thermic, hyponatremic and bradycardic. Admission CT head was obtained which was negative for any concerning findings. Covert 19 was negative. CBC was unremarkable. BMP was nonconcerning except hyponatremia. LFTs were mildly deranged. Patient reports in June he had a fall and since then she has not been feeling good. She started having back pain since the fall. Was working with therapy. Denies any loss of bladder or bowel control. Ultrasound without any acute concerns possibly some sludge. Lyme and Anaplasma is negative. Weakness possibly due to subclinical hypothyroidism and acute on chronic hyponatremia. Chest x-ray without any acute findings. Blood and urine cultures were obtained. Negative thus far. EKG with a sinus bradycardia on admission. Pericardia is resolved. TSH is elevated but free T4 is not concerning. And occasion for treatment at this time. Hypothermia is resolved. Continue with [employer]NAGER [employer] amlodipine. Lumbar x-ray without any concerning findings. Bilateral knee x-rays were obtained. Left knee with effusion orthopedics has been consulted for further input. Orthopedics does not believe that left knee is infected and does not need to be drained at the moment. Transthoracic echo with EF of 60%. Physical therapy recommended home whereas occupational therapy recommended rehab. (2) Altered mental status: Possibly related to delirium. Subclinical hypothyroidism/hyponatremia/possibly sepsis likely contributing as well. (3) Hypothermia: As above. Sepsis work-up has been negative thus far. TSH is not concerning. Cortisol level is not concerning. Carvedilol has been restarted. Hypothermia is resolved. (4) Ambulatory dysfunction: Evaluated by orthopedics for left knee effusion. Patient to follow-up with orthopedics as an outpatient. Continue to work with PT/OT. (5) Bradycardia: Resolved. Continue with MANAGER [employer]Y carvedilol. (6) SIRS (systemic inflammatory response syndrome): Blood cultures have been negative thus far. Hypothermia has improved. We will continue with cefepime at this point. No source of infection identified. (7) Hyponatremia: This morning sodium was at 125. Continue to trend sodium every 8 H. Appreciate nephrology input. 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 Today patient is more awake, alert and oriented. Patient started on Lasix 20 mg 3 times daily along with fluids and fluid restriction. (8) Subclinical hypothyroidism: TSH but free T4 is not concerning. No indication to treat at this time. (9) Malignant neoplasm of upper-inner quadrant of left breast in female, estrogen receptor positive: (10) HTN (hypertension): Continue with MANAGER [employer]Y amlodipine and lisinopril. Carvedilol is restarted. She remains hypertensive, 6 has been restarted. Patient remains hypertensive, and increase amlodipine. (11) Dyslipidemia: (12) History of total right knee replacement: (13) Lumbar spondylosis: Admission and Anticipated Discharge Date Admission Date: July 26, 2020 Spoke with her and daughter again today and updated them. Subjective Patient is awake, alert and oriented x3 this morning. Currently she is having breakfast. Denies any complaints but denies any chest pain, shortness of breath, abdominal pain, diarrhea or dysuria. Review of Systems Review of Systems: All systems reviewed & are unremarkable except as noted in HPI & below Physical Exam Physical Exam: General: Awake and alert, oriented x3 HENT: NCAT, MMM, EOMI Eyes: PERRLA Neck: Supple, normal range of motion CVS: normal rate and rhythm Resp: b/l breath sound Abdomen: Soft, distended nontender Extremities: Trace lower extremity edema Neuro: face symmetric, strength grossly equal, no focal deficit Skin: warm and dry MSK: normal ROM, no joint swelling/erythema Results & Data Results & Data ([facility]) Vital Signs (Past 12 Hours) Vital Signs Temp Pulse Pulse Resp BP Pulse Ox 07/31/20 11:11 36.8 C 68 18 132/75 95 07/31/20 07:51 72 07/31/20 07:04 36.5 C 18 163/93 H 96 07/31/20 04:48 37 C 63 18 148/80 H 94 (1) Hypothermia Encounter type: initial encounter Qualified Code(s): T68.XXXA - Hypothermia, initial encounter
[2020-07-31 13:53] LABS: BUN Creatinine Ratio 66.7 (10-20); Calcium 9.7 mg/dl (8.5-10.1); Est GFR (African American) 104.8; Est GFR (Non-African American) 90.4; Potassium 4.3 mmol/L (3.5-5.1)
[2020-07-31] MEDS: FUROSEMIDE 20 MG in SYRINGE 0 ML IV SCH ×2 (14:50→21:20)
[2020-07-31 21:12] LABS: BUN Creatinine Ratio 51.5 (10-20); Calcium 9.5 mg/dl (8.5-10.1); Creatinine Clr Calc Pharmacy 65.4 ml/min; Est GFR (African American) 107.8; Est GFR (Non-African American) 93.1; Potassium 4.4 mmol/L (3.5-5.1)
[2020-07-31] MEDS: amLODIPine BESYLATE 5 MG TAB PO SCH (21:21)
[2020-08-01] MEDS: FUROSEMIDE 20 MG in SYRINGE 0 ML IV SCH (06:24)
[2020-08-01] MEDS: SODIUM CHLORIDE 0.9% 1000ML 1,000 ML IV SCH (06:25)
[2020-08-01 08:36] LABS: BUN Creatinine Ratio 36.5 (10-20); Calcium 9.2 mg/dl (8.5-10.1); Creatinine Clr Calc Pharmacy 70.6 ml/min; Est GFR (African American) 110.6; Est GFR (Non-African American) 95.4; Potassium 3.9 mmol/L (3.5-5.1)
[2020-08-01] MEDS: FLUTICASONE PROPIONATE NA SPR 16 GM BTL SCH (08:39)
[2020-08-01] MEDS: lisinopril 40 MG TAB PO SCH (08:40)
[2020-08-01] MEDS: carvediloL 3.125 MG TAB PO SCH ×2 (08:40→20:56)
[2020-08-01] MEDS: ENOXAPARIN INJ 30 MG/0.3 ML SYR SQ SCH (08:40)
[2020-08-01] MEDS: ANASTROZOLE 1 MG TAB PO SCH (08:40)
[2020-08-01] MEDS: MULTIVITAMIN TAB PO SCH (08:40)
[2020-08-01] MEDS: SODIUM CHLORIDE 1 GM TABLET PO SCH ×2 (09:55→20:56)
--- NOTE | 2020-08-01 10:16 | Progress Notes ---
DATE: 08/01/2020 NEPHROLOGY PROGRESS NOTE SUBJECTIVE: Overnight, no new issues. Sodium went up a little bit. She did make a good bit of urine with IV Lasix. Blood pressure is now on the lower side. OBJECTIVE: VITAL SIGNS: Blood pressure 107/61, pulse rate 58, temperature 37.2, and 93% on room air. HEENT: Mucous membranes moist. NECK: Supple. No jugular venous distention. CHEST: Bilaterally clear to auscultation. CARDIOVASCULAR: S1, S2 regular. EXTREMITIES: Show no edema. NEUROLOGIC: Awake, alert, oriented x3. LABORATORY TESTS: Blood work from this morning shows serum sodium of 127, potassium 3.9, BUN 19, creatinine 0.5, hemoglobin 11.5. ASSESSMENT AND PLAN: A 74-year-old female whom I have been consulted for management of hyponatremia. Hyponatremia: This is secondary to euvolemic hyponatremia, almost certainly caused by syndrome of inappropriate antidiuretic hormone secretion based on the physical examination and the laboratory tests. RECOMMENDATIONS: 1. Discontinue normal saline. 2. Discontinue IV Lasix. 3. We will use Lasix 30 mg p.o. twice daily. 4. Salt tablet 1 g twice daily. 5. Continue to follow blood pressure closely. 6. BMP every 8 hours. 7. If the serum sodium is 129+, we can consider her for discharge. Most likely at the time of discharge, we will be using some combination of salt tablet and Lasix with free fluid restriction of 1200 mL to manage her hyponatremia as an outpatient.
--- NOTE | 2020-08-01 12:42 | Hospitalist Progress Note ---
Date of Service August 01, 2020 Assessment & Plan (1) Weakness: Patient is 74-year-old female with past medical history of breast cancer, hypertension, right total knee replacement, allergic rhinitis, lower extremities edema and lumbar spondylosis presented to the ED with generalized weakness that has been going on for roughly 2 weeks. Reports the weakness is progressively getting worse. She reports that she has been having trouble walking and have been short of breath. Also reports that she noticed hypothermia at home with temperature in the 90-93. On admission patient was found to be thermic, hyponatremic and bradycardic. Possible carvedilol overdose. Admission CT head was obtained which was negative for any concerning findings. Covert 19 was negative. CBC was unremarkable. BMP was nonconcerning except hyponatremia. LFTs were mildly deranged. Patient reports in June he had a fall and since then she has not been feeling good. She started having back pain since the fall. Was working with therapy. Denies any loss of bladder or bowel control. Ultrasound without any acute concerns possibly some sludge. Lyme and Anaplasma is negative. Weakness possibly due to subclinical hypothyroidism and acute on chronic hyponatremia. Chest x-ray without any acute findings. Blood and urine cultures were obtained. Negative thus far. EKG with a sinus bradycardia on admission. Pericardia is resolved. TSH is elevated but free T4 is not concerning. And occasion for treatment at this time. Hypothermia is resolved. Continue with LINER [employer] amlodipine. Lumbar x-ray without any concerning findings. Bilateral knee x-rays were obtained. Left knee with effusion orthopedics has been consulted for further input. Orthopedics does not believe that left knee is infected and does not need to be drained at the moment. Transthoracic echo with EF of 60%. Physical therapy recommended home whereas occupational therapy recommended rehab. (2) Altered mental status: Possibly related to delirium. Subclinical hypothyroidism/hyponatremia/possibly sepsis likely contributing as well. (3) Hypothermia: As above. Sepsis work-up has been negative thus far. TSH is not concerning. Cortisol level is not concerning. Carvedilol has been restarted. Hypothermia is resolved. (4) Ambulatory dysfunction: Evaluated by orthopedics for left knee effusion. Patient to follow-up with orthopedics as an outpatient. Continue to work with PT/OT. (5) Bradycardia: Resolved. Continue with LINER MAN carvedilol. (6) SIRS (systemic inflammatory response syndrome): Blood cultures have been negative thus far. Hypothermia has improved. Cefepime dc on 07/31. No source of infection identified. (7) Hyponatremia: This morning sodium was at 127. Continue to trend sodium every 8 H. Appreciate nephrology input. 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 Today patient is more awake, alert and oriented. Transitioned to p.o. Lasix 30 BID today along with sodium tablets. Goal is to toward 130. Likely be discharged tomorrow. (8) Subclinical hypothyroidism: TSH but free T4 is not concerning. No indication to treat at this time. (9) Malignant neoplasm of upper-inner quadrant of left breast in female, estrogen receptor positive: (10) HTN (hypertension): Continue with [employer]ER [employer] amlodipine and lisinopril. Continue with carvedilol. (11) Dyslipidemia: (12) History of total right knee replacement: (13) Lumbar spondylosis: Admission and Anticipated Discharge Date Admission Date: July 26, 2020 Subjective Patient is doing okay this morning. She is awake, alert and oriented x3. Hemodynamically doing fine. Sodium at 127 this morning. Does not have any major complaints. Denies any chest pain, shortness of breath, dizziness, abdominal pain, diarrhea or dysuria. Review of Systems Review of Systems: All systems reviewed & are unremarkable except as noted in HPI & below Physical Exam Physical Exam: General: Awake and alert, oriented x3 HENT: NCAT, MMM, EOMI Eyes: PERRLA Neck: Supple, normal range of motion CVS: normal rate and rhythm Resp: b/l breath sound Abdomen: Soft, distended nontender Extremities: Trace lower extremity edema Neuro: face symmetric, strength grossly equal, no focal deficit Skin: warm and dry MSK: normal ROM, no joint swelling/erythema Results & Data Results & Data ([facility]) Vital Signs (Past 12 Hours) Vital Signs Temp Pulse Pulse Pulse Resp BP Pulse Ox 08/01/20 11:55 36.8 C 61 102/61 97 08/01/20 07:19 16 08/01/20 07:17 37.2 C 58 L 107/61 93 08/01/20 07:00 59 L 08/01/20 03:53 36.5 C 60 18 110/69 93 (1) Hypothermia Encounter type: initial encounter Qualified Code(s): T68.XXXA - Hypothermia, initial encounter
[2020-08-01 13:50] LABS: BUN Creatinine Ratio 33.6 (10-20); Calcium 9.4 mg/dl (8.5-10.1); Creatinine Clr Calc Pharmacy 53.7 ml/min; Est GFR (African American) 101.1; Est GFR (Non-African American) 87.2
[2020-08-01] MEDS: FUROSEMIDE 20 MG TAB PO SCH (16:55)
[2020-08-01 20:57] LABS: BUN Creatinine Ratio 30.4 (10-20); Est GFR (African American) 104.8; Est GFR (Non-African American) 90.4; Potassium 3.9 mmol/L (3.5-5.1)
[2020-08-01] MEDS: amLODIPine BESYLATE 5 MG TAB PO SCH (20:57)
[2020-08-02 07:06] LABS: BUN Creatinine Ratio 26.9 (10-20); Calcium 9.2 mg/dl (8.5-10.1); Est GFR (African American) 119.8; Est GFR (Non-African American) 103.3; Potassium 4.1 mmol/L (3.5-5.1)
[2020-08-02] MEDS: ANASTROZOLE 1 MG TAB PO SCH (09:09)
[2020-08-02] MEDS: FUROSEMIDE 20 MG TAB PO SCH (09:09)
[2020-08-02] MEDS: ENOXAPARIN INJ 30 MG/0.3 ML SYR SQ SCH (09:09)
[2020-08-02] MEDS: lisinopril 40 MG TAB PO SCH (09:09)
[2020-08-02] MEDS: SODIUM CHLORIDE 1 GM TABLET PO SCH (09:09)
[2020-08-02] MEDS: FLUTICASONE PROPIONATE NA SPR 16 GM BTL SCH (09:09)
[2020-08-02] MEDS: MULTIVITAMIN TAB PO SCH (09:09)
[2020-08-02] MEDS: carvediloL 3.125 MG TAB PO SCH (09:09)
--- NOTE | 2020-08-02 10:36 | Progress Notes ---
DATE: 08/02/2020 NEPHROLOGY PROGRESS NOTE SUBJECTIVE: Overnight, no new issues. Blood pressure is not low anymore. She is on fluid restriction. Serum sodium continues to fluctuate. OBJECTIVE: VITAL SIGNS: Blood pressure 162/78, pulse rate 65, temperature 36.8, and 96% on room air. HEENT: Mucous membranes moist. NECK: Supple. No jugular venous distention. CHEST: Bilaterally clear to auscultation. CARDIOVASCULAR: S1, S2 regular. ABDOMEN: Soft, nontender. EXTREMITIES: Show no edema. LABORATORY TESTS: From this morning shows a serum sodium of 127, BUN is 11, creatinine 0.4. ASSESSMENT AND PLAN: A 74-year-old female with hyponatremia secondary to syndrome of inappropriate antidiuretic hormone secretion. It has been quite difficult to get her serum sodium higher than 130, but it has been fairly stable and I believe we can consider discharging her home today. RECOMMENDATIONS: 1. The biggest and most important treatment is fluid restriction. She will need to be on at least 1200 mL. 2. Really encouraged her to eat higher protein intake. She is a vegetarian, which limits a lot of protein intake. 3. Lasix 40 twice daily. 4. Salt tablet 1 g twice daily . 5. Her blood pressure is running high and it is quite possible she would need to be on a higher dose of blood pressure medication. 6. She will need a BMP done on Friday morning to further adjust. 7. Follow up with nephrology within 1 week. 8 may need High protein Supplement drink MTDD
[2020-08-02 15:33] VITALS: BP 117/76; TEMP 98.2; O2SAT 96
[2020-08-02] MEDS ORDERED: FUROSEMIDE 40 MG TAB PO SCH (17:00)
[2020-08-02 18:05] VITALS: PULSE 60
--- NOTE | 2020-08-02 18:09 | Discharge Summary ---
Date of Service August 02, 2020 Admission HPI Per Admitting Provider Pt is 74 y/o F with PMH left breast cancer s/p surgery and radiation, HTN, dyslipidemia presented to ER with complaint of leg weakness. Patient states approximately 1 month ago noticed bilateral leg weakness which has worsened over the past 2 weeks. She has started to need to walk with a cane secondary to leg weakness. Patient states in June 2020 she was watching TV and walking and walked into her coffee table causing her to fall backwards. Denies hitting head. After fall following day had back pain. She reports follow-up with Ortho and was to have his go therapy however back pain improved and has since been resolved. Patient reports had leg weakness prior to fall. Denies loss of control of bowels or bladder. Past 3 days has noticed low temperatures at home. Has been taking temperature daily and reports temperatures 93 F, reports her baseline is 97 F. Also reports noting pulse readings in the 50s. She reports chronic shortness of breath and has been following with pulmonology and is c urrently waiting approval for oxygen at night. Denies any known insect bite. Patient states not been going outside for months. She reports has been having constipation and started taking MiraLAX which is improved constipation. Denies fever/chills, diaphoresis, N/V/D, melena, hematochezia, CLEMENT, dizziness, syncope, vision changes, neck pain, CP, SOB, orthopnea, palpitations, cough, sore throat, choking, otalgia, rhinorrhea, abdominal pain, paresthesias, upper extremity weakness, extremity edema, rashes, dysuria, hematuria, urinary frequency. Denies ill contacts, denies recent travel. Denies Covid exposure. Denies any recent med changes Principal Diagnosis HYPONATREMIA GENERALIZED WEAKNESS Bradycardia Discharge Exam Constitutional WD/WN, vitals as above Eyes PERRL, conjunctivae normal, anicteric sclerae ENMT external ear and nose normal, oropharynx normal Neck trachea midline, no thyromegaly Respiratory normal respiratory effort, lungs clear to auscultation Cardiovascular RRR, no murmur, no edema Gastrointestinal (Abdomen) normal bowel sounds, soft, nontender, no hepatosplenomegaly Musculoskeletal no cyanosis or clubbing, extremities motor strength 5/5 Skin no rashes, warm and dry Neurologic PERRL, EOMI, accommodation nl, no face palsy, no dysarthria Psychiatric A+Ox3, euthymic affect Discharge Data Allergies Allergy/AdvReac Type Severity Reaction Status Date / Time amoxicillin Allergy Intermediate Rash Verified 07/05/20 14:04 adhesive tape AdvReac Verified 07/05/20 14:04 Consultations 07/26/20 19:58 ED Decision to Admit Stat 07/28/20 13:15 Consult Orthopedic Surgery Routine 07/29/20 08:05 Consult Nephrology Routine Ordered Studies 07/26/20 18:39 CT head/brain wo con Stat 07/27/20 08:00 US liver Routine Hospital Course (1) Weakness: Patient is 74-year-old female with past medical history of breast cancer, hypertension, right total knee replacement, allergic rhinitis, lower extremities edema and lumbar spondylosis presented to the ED with generalized weakness that has been going on for roughly 2 weeks. Reports the weakness is progressively getting worse. She reports that she has been having trouble walking and have been short of breath. Also reports that she noticed hypothermia at home with temperature in the 90-93. On admission patient was found to be thermic, hyponatremic and bradycardic. Beta halima Coreg kept on hold on admission Admission CT head was obtained which was negative for any concerning findings. Covert 19 was negative. CBC was unremarkable. BMP was nonconcerning except hyponatremia. Weakness possibly due to acute on chronic hyponatremia. Chest x-ray without any acute findings. Transthoracic echo with EF of 60%. pt reports improvement of weakness , stable to be discharged home (2) Altered mental status: metabolic encephalopathy with electrolyte derangement -Hyponatremia Possibly related to delirium. symptoms has resolved no confusion or lethargy mental status back to baseline awake and alert , oriented to time place and person conversing apporpriately (3) Hypothermia: resolved . Sepsis work-up has been negative thus far. normal Cortisol level thyroid function test as discussed above (4) Ambulatory dysfunction: Evaluated by orthopedics for left knee effusion. Patient to follow-up with orthopedics as an outpatient. able to walk independently stable to be discharged home , pt has 24.7 care (5) Bradycardia: hold coreg HR in low 70's no complain of sob , dizzy spell or lightheadedness (6) SIRS (systemic inflammatory response syndrome): Blood cultures have been negative thus far. Hypothermia has resovled Cefepime dc on 07/31. No source of infection identified. 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 given presentation with weakness, hypothermia , bradycardia pt will be started on low dose Levothyroxine 25 mcg daily repeat TSH in 4-6 weeks Hypothermia is resolved.stable vitals (9) Malignant neoplasm of upper-inner quadrant of left breast in female, estrogen receptor positive: (10) HTN (hypertension): (11) Dyslipidemia: (12) History of total right knee replacement: (13) Lumbar spondylosis: DISPOSITION ; discharged home Total Time Total Time Spent Total Time Spent (In Minutes): 35 mins Total Time Includes: Examination of the Patient, Discharge Planning and Medication Reconciliation Discharge Plan Discharge Items Patient Disposition: Home - Home Health Services Reason For Visit: HYPONATREMIA, BRADYCARDIA Discharge Diagnosis: HYPONATREMIA GENERALIZED WEAKNESS Bradycardia hypothermia Activity: Resume your previous activity Non-emergency contact: Primary Care Provider Call non-emergency contact if: you have any medication questions Follow-up/Referrals: Sierra Uribe MD, PhD [Physician] - (Follow up with Nephrology in 1-2 weeks ) Ken Diallo DO [Primary Care Provider] - 08/07/20 2:00 pm (Date & Time 08/07/2020 2:00 PM Provider Travis Paredes III, MD Department [facility] ) Diet: Heart Healthy Fluids: 1200ml (5 cups) Ambulatory Orders: Basic Metabolic Panel (Routine) Timeframe: 20200804 Location: Determined by Patient Ordered By: Nica Henry Attending Provider Instructions: BASIC METABOLIC PANEL ON Friday08/04/2020 Fluid restriction 1200 ml /day -that includes water intake , tea all beverages repeat Thyroid Function test on 4-6 weeks Nephrology follow up on 3-4 weeks Pending Studies at Discharge: No Stand-Alone Forms: My [employer], Smoking Cessation Medications and DC Order Prescriptions: New furosemide 40 mg Tablet 40 mg PO BID 30 Days Qty: 60 RF: 2 sodium chloride 1 gram Tablet 1 g PO BID 30 Days Qty: 60 RF: 2 levothyroxine 25 mcg capsule 25 mcg PO DAILY Qty: 30 RF: 3 Continued anastrozole [Arimidex] 1 mg tablet 1 mg PO DAILY RF: 0 ammonium lactate 12 % cream 1 applic TOP DAILY RF: 0 clindamycin HCl 150 mg capsule 150 mg PO TID PRN (Reason: dental procedures) RF: 0 atorvastatin 10 mg tablet 10 mg PO QPM RF: 0 multivitamin Tablet 1 tab PO DAILY RF: 0 albuterol sulfate [Ventolin HFA] 90 mcg/actuation HFA aerosol inhaler 2 puff inhalation Q4H PRN (Reason: Shortness Of Breath Or Wheezing) RF: 0 amlodipine 5 mg Tablet 5 mg PO PM RF: 0 acetaminophen [Acetaminophen Extra Strength] 500 mg Tablet 500 mg PO Q8H PRN (Reason: Fever Or Pain) RF: 0 fluticasone propionate 50 mcg/actuation spray,suspension 2 spray INTRANASAL QAM RF: 0 lisinopril 40 mg tablet 40 mg PO DAILY RF: 0 cholecalciferol (vitamin D3) 50 mcg (2,000 unit) Tablet 50 mcg PO DAILY RF: 0 albuterol sulfate 2.5 mg /3 mL (0.083 %) Solution For Nebulization 2.5 mg continuous nebulization Q4H PRN (Reason: Shortness Of Breath Or Wheezing) RF: 0 Discontinued carvedilol 6.25 mg tablet 6.25 mg PO PM RF: 0 carvedilol 12.5 mg tablet 12.5 mg PO QAM RF: 0 furosemide 20 mg tablet 20 mg PO QAM RF: 0 Discharge Orders: Discharge Order (Routine); Ordered 08/02/20 Ordered By: Nica eSay/Other Patient Handouts: Hyponatremia Dc, Discharge Instructions for ... Admission Data Admit Date/Time: 07/26/20 22:02 Attending Provider: Nica Carmona Admit Provider: Sanchez Junior Primary Care Provider: Ken Diallo Other Providers: Sanchez Junior ; Ruslan Myles ; Sierra Uribe ; Giig Alvarez ; Amber Arrington ; Gracie Molina Japheth E. ; Misa Woodward ; Hannah Dos Santos. Other Interventions: Discharge Summary Assessment (RN) Last Done: 08/02/20 18:04
--- NOTE | 2020-08-03 19:54 | Communication Note ---
Date of Service: August 03, 2020 pt admitted with bradycardia , hypothermia , hyponatremia Coreg was kept on hold during admission HR remained in low 70-60's with no symptoms on discharge her home medication -Coreg is continued by mistake updated the medication list -stating pt should not be taking Coreg , called pt's home updated pt and -Not to take Coreg pt is scheduled for hospital follow by her family physician Dr Paredes will update Dr Paredes regarding medication change. Nica Carmona MD
--- NOTE | 2020-08-03 20:25 | Communication Note ---
Date of Service: August 03, 2020 Pts updated regarding discontinuing Coreg and addition of Levothyroxine 25 mg daily -new scripts sent to pharmacy all questions answered Nica Carmona MD
== END 2020-08-02 18:42 | disposition home health service (06) | DRG 643 ==
LOC: ED 18:19 → 2S 22:02 → SUATTDRO 22:02 → 2S 22:16

== ENCOUNTER 2020-08-26 20:13 | Inpatient (IN) ==
[2020-08-26] MEDS ORDERED: SODIUM CHLORIDE 0.9% 500 ML IV SCH (20:15)
[2020-08-26] MEDS ORDERED: fentaNYL citrate 100 MCG/2 ML VIAL ONE (20:20)
[2020-08-26] MEDS ORDERED: BIVALIRUDIN 250 MG VIAL (CATH LAB ONLY) ONE (20:20)
[2020-08-26] MEDS ORDERED: niCARdipine HCL INJ 2.5 MG/ML 10 ML AMP ONE (20:20)
[2020-08-26] MEDS ORDERED: HEPARIN (PORCINE) 1000 UNIT/ML 10 ML (CATH LAB USE ONLY) ONE (20:20)
[2020-08-26] MEDS ORDERED: NITROGLYCERIN/D5W 100MCG/ML 20ML SYR ONE (20:21)
[2020-08-26] MEDS ORDERED: MIDAZOLAM HCL 1 MG/ML 2ML VIAL ONE (20:21)
[2020-08-26 20:40] LABS: Basophils # (auto) 0.02 K/uL (0-0.2); Basophils % (auto) 0.3 %; Eosinophils % (auto) 1.4 %; Hematocrit (blood only) 34.2 % (37-47); Hemoglobin 11.6 g/dL (12.0-16.0); Immature Granulocytes # (auto) 0.01 K/uL (0.00-0.02); Immature Granulocytes % (auto) 0.1 %; Lymphocytes # (auto) 2.86 K/uL (1.2-3.4); Lymphocytes % (auto) 39.6 %; Mean Corpuscular Hemoglobin 31.2 pg (25-34); Mean Corpuscular Hgb Conc 33.9 g/dL (32-36); Mean Corpuscular Volume 91.9 fL (80-100); Mean Platelet Volume 9.1 fL (7.4-10.4); Monocytes # (auto) 1.05 K/uL (0.11-0.59); Monocytes % (auto) 14.5 %; Neutrophils # (auto) 3.19 K/uL (1.4-6.5); Neutrophils % (auto) 44.1 %; Platelet Count 262 K/uL (130-400); RDW Coefficient of Variation 13.4 % (11.5-14.5); RDW Standard Deviation 45.2 fL (36.4-46.3); Red Blood Count 3.72 M/uL (4.2-5.4); White Blood Count 7.23 K/uL (4.8-10.8)
--- NOTE | 2020-08-26 20:49 | XRay Report ---
SINGLE VIEW CHEST CLINICAL HISTORY: Atypical chest pain. FINDINGS: An AP, portable, upright chest radiograph is compared to study dated 07/29/2020. The examina tion is degraded by portable technique and apical lordotic positioning. The heart is enlarged noting atherosclerotic calcification of the thoracic aorta. The pulmonary vasculature is noncongested. Chron ic interstitial thickening is similar to previous. There is mild elevation of right hemidiaphragm and bibasilar atelectasis. No airspace consolidation or large pleural effusion is identified. No pneumot horax is seen. The skeletal structures are osteopenic. The bony thorax is grossly intact. Degenerativ e change is noted in the spine. IMPRESSION: Cardiomegaly with no acute cardiopulmonary abnormality. ACT 112: Negative or not required by law. Electronically signed by: Aleksey Patrick M.D. 08/26/2020 8:47 PM
[2020-08-26 20:51] LABS: Partial Thromboplastin Ratio 0.9; Partial Thromboplastin Time 24.9 Seconds (21.0-31.0); Prothrombin Time 10.6 Seconds (9.0-12.0)
[2020-08-26 20:57] LABS: Albumin Level 3.6 gm/dl (3.4-5.0); BUN Creatinine Ratio 16.4 (10-20); Calcium 9.4 mg/dl (8.5-10.1); Creatinine Clr Calc Pharmacy 54.9 ml/min; Est GFR (African American) 94.7; Est GFR (Non-African American) 81.7; Potassium 2.8 mmol/L (3.5-5.1)
[2020-08-26 21:04] LABS: Albumin Globulin Ratio 0.9 (0.9-2); Bilirubin,Total 0.2 mg/dl (0.2-1); Globulin 4.2 gm/dl (2.5-4.0); Total Protein 7.8 gm/dl (6.4-8.2); Troponin I 0.102 ng/ml (0-0.045)
[2020-08-26] MEDS ORDERED: TICAGRELOR 90 MG TAB PO ONE (21:26)
[2020-08-26] MEDS ORDERED: ATROPINE SULFATE 0.1 MG/ML 10ML SYR IV PRN (21:29)
[2020-08-26] MEDS ORDERED: ONDANSETRON INJ 2 MG/ML 2 ML VIAL IV PRN (21:29)
--- NOTE | 2020-08-26 21:29 | Emergency Department Note ---
Impression & Plan ST elevation myocardial infarction (STEMI), Syncope ED Provider Note NAME: TIA SANCHEZ AGE: 74 SEX: F : 1945 ARRIVES VIA: Ambulance INFORMANT: Patient, prehospital personnel ED PROVIDER(S): Chino Rodriguez DO CHIEF COMPLAINT: Syncope HPI: The patient is a 74-year-old [facility] The patient was made a hard alert prior to arrival. The patient apparently had an episode of syncope while she was at rest. This was witnessed by her significant other. The patient denies having any shortness of breath. She did have some chest pressure earlier but at this time has no chest complaints. The patient was found to have signs of an acute STEMI on EKG by the prehospital personnel. I received a prehospital notification of the patient was made a stroke alert prior to arrival. I did discuss the patient's case with the on-call fish liver sorter prior to arrival. The patient states that she is currently being treated for cancer. The patient was in our facility last month because of other complaints. At that time she did have an echocardiogram and further cardiac work-up but not a cardiac catheterization or stress test. The patient does not have a history of acute coronary syndrome. Initial prehospital EKG revealed normal sinus rhythm at [address] segment elevation in the inferior leads with reciprocal changes in the high lateral leads as well as ST depressions in the anterior leads. I feel this is consistent with an acute inferior posterior wall VT. A second EKG was also sent. This revealed sinus rhythm at [address] segment abnormalities were noted revealing persistence of STEMI pattern. The patient was brought directly to room B1. ROS: See above HPI for pertinent positives & negatives. A total of 10 systems reviewed and were otherwise negative. PAST MEDICAL HISTORY: See Below PAST SURGICAL HISTORY: See Below FAMILY HISTORY: See Below SOCIAL HISTORY: See Below HOME MEDICATIONS: See Below ALLERGIES: See Below VITALS: See Below PHYSICAL EXAMINATION: GENERAL: Patient is awake alert in no acute distress patient is resting comfortably and showing no signs of anxiety EYES: The conjunctivae are clear. The pupils are round and reactive. EARS, NOSE, MOUTH AND THROAT: The nose is without any evidence of any deformity. NECK: The neck is nontender and supple. RESPIRATORY: Normal respiratory effort is noted there is no evidence of wheezing rhonchi or rales CARDIOVASCULAR: Regular rate and rhythm noted there no murmurs rubs or gallops normal S1 normal S2. GASTROINTESTINAL: The abdomen is soft. Abdomen is nontender. MUSCULOSKELETAL/EXTREMITIES: There is no evidence of gross deformity full range of motion is noted in the hips and shoulders. SKIN: There is no obvious evidence of any rash. There are no petechiae, pallor or cyanosis noted. NEUROLOGIC: Patient is awake alert and oriented x3. MEDICAL DECISION MAKING: The patient is a 74-year-old female who had a syncopal episode at home and was evaluated by the prehospital personnel. Her significant other called 911 because the patient had an episode of syncope. She states that she did not feel good but did not have any overt chest pain. She states that she may have had some degree of chest discomfort however. The patient was seen in our facility recently for different complaints. She was admitted to the hospital at that time and did have an echocardiogram. I did review the patient's previous echocardiogram report. She was found to have signs of STEMI on prehospital EKG. She was made a heart alert prior to arrival. I discussed her case with the fish liver sorter. He evaluated the patient immediately in the emergency department and felt that she would be a candidate for cardiac catheterization. The patient's EKG did show some improvement upon arrival to the emergency department. I did discuss the procedure of a cardiac catheterization. She was agreeable to evaluation by the partnership manager. The patient was treated with aspirin prior to arrival. Triage Nursing notes reviewed. Prior medical records reviewed Vital Signs: reviewed and remarkable for elevated blood pressure. Differential diagnosis: Cardiac ischemia, aortic dissection, pulmonary embolism, pneumothorax, pneumonia, pericarditis, myocarditis, esophageal rupture, GERD, cholecystitis, pancreatitis, musculoskeletal, as well as other pathologies. ER treatment provided: See below Diagnostics interpreted by me: ECG: EKG was obtained in the emergency department. My interpretation is sinus bradycardia 53 bpm. There was no ectopy. Significant improvement of the previously noted in other ST segment elevations was noted. Persistence of the reciprocal changes in the high lateral leads were noted. This was compared to a tracing from July 26, 2020. The ischemic and STEMI changes are new compared to the earlier tracing. Cardiac Monitoring: An order was placed for continuous cardiac monitoring. The monitor shows a rate of 65 bpm with sinus rhythm. Laboratory studies: As stated above and show below. Imaging studies: See below Consultation(s): I discussed this case with Dr. Hernandez who is on-call for interventional cardiology. He will evaluate the patient immediately in the emergency department. Past Med/Surg History Medical History Allergic rhinitis Person's cyst of knee Benign neoplasm of colon Cataract Dyslipidemia Edema of both legs FH: colonic polyps HTN, goal below 140/90 Hx of vaginal delivery Lumbar spondylosis Menopause Painful total knee replacement, right Surgical History History of lumpectomy of left breast History of partial hysterectomy Family History Mother Musculoskeletal disease Blood disorder anemia, at age 91y Father , dies at age 81 Diabetes 1.5, managed as type 2 Hypertension Brother Hypertension Sister , UNILATERAL, POSTMENOPAUSAL BREAST CANCER Breast cancer Social History Smoking Status: Never smoker Hx Alcohol Use: No Hx Substance Use: No Preferred Language: Uzbek Communication Ability: Effective Visual Impairment: Partially Limited Hearing Ability: Normal Carpenter Repairer Required: No Beliefs That Will Affect Care: None marital status: Current Living Situation: Spouse current occupation: homemaker Feels Safe at Home: Yes caffeine: Yes during the past year weight has: remained stable Assistive Devices: Walker Allergies Allergies Allergy/AdvReac Type Severity Reaction Status Date / Time amoxicillin Allergy Intermediate Rash Verified 07/05/20 14:04 adhesive tape AdvReac Verified 07/05/20 14:04 Home Meds Home Medications Medication Instructions Recorded Confirmed anastrozole 1 mg tablet 1 mg PO DAILY 11/17/18 07/26/20 albuterol sulfate 90 mcg/actuation 2 puff INHALATION Q4H PRN g 05/18/20 07/26/20 aerosol inhaler ammonium lactate 12 % topical cream 1 applic TOP DAILY 05/18/20 07/26/20 atorvastatin 10 mg tablet 10 mg PO QPM 05/18/20 07/26/20 clindamycin HCl 150 mg capsule 150 mg PO TID PRN 05/18/20 07/26/20 multivitamin 1 tab PO DAILY 05/18/20 07/26/20 acetaminophen [Acetaminophen Extra 500 mg PO Q8H PRN 07/26/20 07/26/20 Strength] albuterol sulfate 2.5 mg CONTINUOUS NEBULIZATION Q4H 07/26/20 07/26/20 PRN amlodipine 5 mg PO PM 07/26/20 07/26/20 cholecalciferol (vitamin D3) 50 mcg PO DAILY 07/26/20 07/26/20 fluticasone propionate 2 spray INTRANASAL QAM 07/26/20 07/26/20 lisinopril 40 mg PO DAILY 07/26/20 07/26/20 Previous Rx's Medication Instructions Recorded furosemide 40 mg PO BID 30 Days #60 tab 08/02/20 sodium chloride 1 g PO BID 30 Days #60 tab 08/02/20 levothyroxine 25 mcg PO DAILY #30 cap 08/03/20 Results & Data (ED) Vital Signs Vital Signs - 24 hr 08/26/20 20:18 08/26/20 20:22 Temperature 36.5 C Temperature Source Oral Pulse Rate 67 Respiratory Rate 16 Respiratory Effort / Characteristics Non-Labored Spontaneous Respiratory Depth Normal Respiratory Pattern Regular Blood Pressure 154/80 H Blood Pressure Mean 104 Blood Pressure Position Lying Pulse Oximetry 100 98 Oxygen Delivery Method Room Air Room Air Sepsis New/Unexplained Change in Mental Status N/A Sepsis Action Taken by Nursing No Action Required Home Medications Current Medication List: was personally reviewed by me Laboratory Data Attestation: I reviewed the patient's lab results. Result diagrams: 08/26/20 20:30 08/26/20 20:30 Lab Results 08/26/20 08/26/20 08/26/20 Range/Units 20:30 20:30 20:30 WBC 7.23 (4.8-10.8) K/uL RBC 3.72 L (4.2-5.4) M/uL Hgb 11.6 L (12.0-16.0) g/dL Hct 34.2 L (37-47) % MCV 91.9 (80-100) fL MCH 31.2 (25-34) pg MCHC 33.9 (32-36) g/dL RDW Std Deviation 45.2 (36.4-46.3) fL RDW Coeff of Herrera 13.4 (11.5-14.5) % Plt Count 262 (130-400) K/uL MPV 9.1 (7.4-10.4) fL Immature Gran % (Auto) 0.1 % Neut % (Auto) 44.1 % Lymph % (Auto) 39.6 % [place] % (Auto) 14.5 % Eos % (Auto) 1.4 % Baso % (Auto) 0.3 % Neut # (Auto) 3.19 (1.4-6.5) K/uL Lymph # (Auto) 2.86 (1.2-3.4) K/uL [place] # (Auto) 1.05 H (0.11-0.59) K/uL Eos # (Auto) 0.10 (0-0.5) K/uL Baso # (Auto) 0.02 (0-0.2) K/uL Immature Gran # (Auto) 0.01 (0.00-0.02) K/uL PT 10.6 (9.0-12.0) Seconds INR 1.0 (0.9-1.1) APTT 24.9 (21.0-31.0) Seconds PTT Ratio 0.9 Sodium 138 (136-145) mmol/L Potassium 2.8 L (3.5-5.1) mmol/L Chloride 99 (98-107) mmol/L Carbon Dioxide 29 (21-32) mmol/L Anion Gap 10.0 (3-11) BUN 12 (7-18) mg/dl Creatinine 0.73 (0.6-1.2) mg/dl Est Cr Clr Drug Dosing 54.9 ml/min Est GFR ( Amer) 94.7 Est GFR (Non-Af Amer) 81.7 BUN/Creatinine Ratio 16.4 (10-20) Glucose 137 H (70-99) mg/dl Calcium 9.4 (8.5-10.1) mg/dl Total Bilirubin 0.2 (0.2-1) mg/dl AST 29 (15-37) U/L ALT 38 (12-78) U/L Alkaline Phosphatase 133 H (45-117) U/L Troponin I 0.102 H* (0-0.045) ng/ml Total Protein 7.8 (6.4-8.2) gm/dl Albumin 3.6 (3.4-5.0) gm/dl Globulin 4.2 H (2.5-4.0) gm/dl Albumin/Globulin Ratio 0.9 (0.9-2) Lipase 168 (73-393) U/L COVID-19 Eval Order SARS-CoV-2, RNA, NAAT (NEGATIVE) 08/26/20 08/26/20 Range/Units 20:30 20:30 WBC (4.8-10.8) K/uL RBC (4.2-5.4) M/uL Hgb (12.0-16.0) g/dL Hct (37-47) % MCV (80-100) fL MCH (25-34) pg MCHC (32-36) g/dL RDW Std Deviation (36.4-46.3) fL RDW Coeff of Herrera (11.5-14.5) % Plt Count (130-400) K/uL MPV (7.4-10.4) fL Immature Gran % (Auto) % Neut % (Auto) % Lymph % (Auto) % [place] % (Auto) % Eos % (Auto) % Baso % (Auto) % Neut # (Auto) (1.4-6.5) K/uL Lymph # (Auto) (1.2-3.4) K/uL [place] # (Auto) (0.11-0.59) K/uL Eos # (Auto) (0-0.5) K/uL Baso # (Auto) (0-0.2) K/uL Immature Gran # (Auto) (0.00-0.02) K/uL PT (9.0-12.0) Seconds INR (0.9-1.1) APTT (21.0-31.0) Seconds PTT Ratio Sodium (136-145) mmol/L Potassium (3.5-5.1) mmol/L Chloride (98-107) mmol/L Carbon Dioxide (21-32) mmol/L Anion Gap (3-11) BUN (7-18) mg/dl Creatinine (0.6-1.2) mg/dl Est Cr Clr Drug Dosing ml/min Est GFR ( Amer) Est GFR (Non-Af Amer) BUN/Creatinine Ratio (10-20) Glucose (70-99) mg/dl Calcium (8.5-10.1) mg/dl Total Bilirubin (0.2-1) mg/dl AST (15-37) U/L ALT (12-78) U/L Alkaline Phosphatase (45-117) U/L Troponin I (0-0.045) ng/ml Total Protein (6.4-8.2) gm/dl Albumin (3.4-5.0) gm/dl Globulin (2.5-4.0) gm/dl Albumin/Globulin Ratio (0.9-2) Lipase (73-393) U/L COVID-19 Eval Order Covid19 [facility]Now [facility] SARS-CoV-2, RNA, NAAT NEGATIVE (NEGATIVE) Administered Medications Discontinued Medications Bivalirudin (Bivalirudin 250 Mg Vial (Research Mechanic Only)) Confirm Administered Dose 250 mg .ROUTE .STK-MED ONE Stop: 08/26/20 20:21 Last Admin: 08/26/20 21:16 Dose: 250 mg Documented by: [id number] Fentanyl Citrate (Fentanyl Citrate 100 Mcg/2 Ml Vial) Confirm Administered Dose 100 mcg .ROUTE .STK-MED ONE Stop: 08/26/20 20:21 Last Admin: 08/26/20 21:16 Dose: Not Given Documented by: [id number] Heparin Sodium (Porcine) (Heparin (Porcine) 1000 Unit/Ml 10 Ml (Research Mechanic Use Only)) Confirm Administered Dose 10,000 units .ROUTE .STK-MED ONE Stop: 08/26/20 20:21 Last Admin: 08/26/20 21:16 Dose: Not Given Documented by: [id number] Heparin Sodium/Sodium Chloride (Heparin In Nss Infusion 1000 Unit/500 Ml (2 U/Ml) Bag) Confirm Administered Dose 3,000 units IV .STK-MED ONE Stop: 08/26/20 20:22 Last Admin: 08/26/20 20:52 Dose: 3,000 units Documented by: [id number] Sodium Chloride (Nss) 500 mls @ 999 mls/hr IV .Q31M TIFFANY Stop: 08/26/20 20:45 Last Admin: 08/26/20 20:30 Dose: 999 mls/hr Documented by: [id number] Midazolam HCl (Midazolam Hcl 1 Mg/Ml 2ml Vial) Confirm Administered Dose 2 mg .ROUTE .STK-MED ONE Stop: 08/26/20 20:22 Last Admin: 08/26/20 20:53 Dose: 2 mg Documented by: [id number] Nicardipine HCl (Nicardipine Hcl Inj 2.5 Mg/Ml 10 Ml Amp) Confirm Administered Dose 25 mg .ROUTE .STK-MED ONE Stop: 08/26/20 20:21 Last Admin: 08/26/20 20:52 Dose: 25 mg Documented by: [id number] Nitroglycerin/Dextrose (Nitroglycerin/D5w 100mcg/Ml 20ml Syr) Confirm Administered Dose 2,000 mcg .ROUTE .STK-MED ONE Stop: 08/26/20 20:22 Last Admin: 08/26/20 20:52 Dose: 2,000 mcg Documented by: [id number] Imaging Data Radiologist's Impression: [facility], [facility] [phone] XRay Report Patient: Cary SANCHEZ Date: 08/26/20#: [id number]: [id number] [facility] ID:[id number]: Date: 1945[facility] Zip: [place], [place] [address]Unj: 74Location: CCSex: FRoom/Bed:Att Phy: Ricco Hernandez MDDiagnosis: CARDIAC ASSESSMENTPri Phy: Ken Diallo, DOService Date: 08/26/20Fam Phy:Interpreting Phy: Aleksey Patrick MDAdmit Phy: Ordering Phy: Chino Rodriguez DO cc: ~ SINGLE VIEW CHEST CLINICAL HISTORY: Atypical chest pain. FINDINGS: An AP, portable, upright chest radiograph is compared to study dated 07/29/2020. The examination is degraded by portable technique and apical lordotic positioning. The heart is enlarged noting atherosclerotic calcification of the thoracic aorta. The pulmonary vasculature is noncongested. Chronic interstitial thickening is similar to previous. There is mild elevation of right hemidiaphragm and bibasilar atelectasis. No airspace consolidation or large pleural effusion is identified. No pneumothorax is seen. The skeletal structures are osteopenic. The bony thorax is grossly intact. Degenerative change is noted in the spine. IMPRESSION: Cardiomegaly with no acute cardiopulmonary abnormality. ACT 112: Negative or not required by law. Electronically signed by: Aleksey Patrick M.D. 08/26/2020 8:47 PM Dictated: 08/26/202045Transcribed: 08/26/202045 Blood Pressure Blood Pressure Findings: Elevated blood pressure Discharge Plan Visit Data Chief Complaint: Heart Alert Stated Complaint: CARDIAC ASSESSMENT ED Provider: Chino Rodriguez Discharge Problem: ST elevation myocardial infarction (STEMI), Syncope Patient Disposition: Admitted As Inpatient Condition: Good Discharge Instructions Interventions: ED Discharge Assessment Last Done: 08/26/20 20:37 Discharge Problem: ST elevation myocardial infarction (STEMI) Qualifiers: Involved coronary artery: unspecified coronary artery Qualified Code(s): I21.3 - ST elevation (STEMI) myocardial infarction of unspecified site Syncope Qualifiers: Syncope type: unspecified Qualified Code(s): R55 - Syncope and collapse
--- NOTE | 2020-08-26 21:39 | Post Anesthesia Assessment ---
Date of Service August 26, 2020 Post Sedation Assessment Vital Signs Temp Pulse Resp BP Pulse Ox 08/26/20 20:22 36.5 C 67 16 154/80 H 98 08/26/20 20:18 100 Recovery Score Activity: Moves 4 extremities Respiration: Deep Breath/Cough Circulation: +/-20% PreAnes Value Consciousness: Fully Awake Oxygen Saturation: > 92% On Room Air Discharge Sedation Level of Care: Phase I Post Sedation Plan On clinical assessment, the patient appears to have tolerated the sedation without complications. Patient is recovering as anticipated. Patient will continue to be monitored by nursing and may be discharged when s edation discharge criteria are met per below protocol. Upon Completions of procedure up to 15 minutes continue every 5 minute vital signs and the P.A.R. score; then discharge to a Phase I or Fast Track to Phase II per the following guidelines: * Discharge Patient to appropriate Phase II area if PAR is 8 or greater or return to pre- procedure baseline. The post - procedure orders will be as directed. * If PAR score is less than 8 or not return to pre-procedure baseline then patient will follow Phase I monitoring till PAR is reached for Phase II. The Phase I may be done in procedure room or may call to secure a Phase I area. * If naloxone or flumazenil are used for reversal, hold in Phase I for continued monitoring from when last reversal dose was given for a minimum of 60 minutes or longer pending the nurse and/or physician discretion of patient condition before discharge to Phase II. Please call the Sedation Physician to re-evaluate and complete post-note for discharge to Phase II area. Do NOT discharge from procedure sedation or Phase 1 until post- sedation evaluation note is complete by procedure /sedation MD Sedation Discharge Instructions to be given to the patient at discharge to home.
--- NOTE | 2020-08-26 21:40 | Pre Anesthesia Assessment ---
Date of Service August 26, 2020 Pre Sedation Assessment Vital Signs Temp Pulse Resp BP Pulse Ox 08/26/20 20:22 36.5 C 67 16 154/80 H 98 08/26/20 20:18 100 Cardiovascular RRR, no murmur, no edema Respiratory normal respiratory effort, lungs clear to auscultation Pre-Sedation Airway Assessment Smoking Status: Never smoker Mallampati Class: I ASA: ASA3 Notes The planned sedation has been discussed with the patient. Informed Consent was obtained. I have identified the patient, determined the appropriateness of sedation and have assessed the patient immediately prior to the procedure. All medicine(s) and interventions are by my order.
--- NOTE | 2020-08-26 21:42 | Post Operative Brief Note ---
Cardiology Brief Post Op Date of Surgery August 26, 2020 Pre & Post Diagnosis Operation Date: 08/26/20 20:0 74-year-old female, prior history of hypertension presented to emergency room with symptoms of throat discomfort, subsequently had what appears to be a syncopal episode. EKG in route to the hospital revealed evidence of inferior ST elevation with reciprocal depressions, Emergency got a catheterization revealed severe proximal right coronary artery lesion, high anterior takeoff, emergency intervention performed with placement of 4 mm x 18 mm Xience drug-eluting stent postdilated with 4 mm noncompliant balloon at nominal pressures. Excellent angiographic results with normal KEYANA flow. Procedure 74-year-old female, prior history of hypertension presented to emergency room with symptoms of throat discomfort, subsequently had what appears to be a syncopal episode. EKG in route to the hospital revealed evidence of inferior ST elevation with reciprocal depressions, Emergency got a catheterization revealed severe proximal right coronary artery lesion, high anterior takeoff, emergency intervention performed with placement of 4 mm x 18 mm Xience drug-eluting stent postdilated with 4 mm noncompliant balloon at nominal pressures. Excellent angiographic results with normal KEYANA flow. Package Dyer Ricco Hernandez MD Body Mechanic Apprentice none Estimated Blood Loss 10 Findings Consistent with Post-Op Diagnosis
--- NOTE | 2020-08-26 21:51 | Cardiac Catheterization ---
ACC Data: Asp Net Software Developer Cardiac Status Clinical evaluation leading to the procedure CAD Presenation: STEMI Diagnostic Physicians Name: Ricco Hernandez MD Closure Device Recommendations: PCI without planned CABG Cardiac Cath Procedure Full Procedure Date August 26, 2020 Pre-Procedure Diagnosis Pre-Procedure Diagnosis: STEMI AUC Score AUC Score: 9 Post-Procedure Diagnosis Post-Procedure Diagnosis: Successful PCI Procedure(s) Performed Procedure(s) Performed: Coronary Angiography and Left Heart Cath Production Machine Tender Ricco Hernandez MD Estimated Blood Loss Estimated Blood Loss: None Medication(s) Medication(s): Aspirin and Bivalirudin Summary of Findings 74-year-old female, prior history of hypertension presented to emergency room wi th symptoms of throat discomfort, subsequently had what appears to be a syncopal episode. EKG in route to the hospital revealed evidence of inferior ST elevation with reciprocal depressions, Emergency got a catheterization revealed severe proximal right coronary artery lesion, high anterior takeoff, emergency intervention performed with placement of 4 mm x 18 mm Xience drug-eluting stent postdilated with 4 mm noncompliant balloon at nominal pressures. Excellent angiographic results with normal KEYANA flow. Hemodynamics Rest Ao:: 140/60 Final Ao: 152/75 LV: Not performed Recommendations Recommendations: PCI without planned CABG Radiation Exposure (mGy) 712 Contrast (mls) 150 I attest to the content of the Intraoperative Record and any orders documented therein. Any exceptions are noted below. PG Care Time/CCT Total # of Minutes Spent Total Time Spent with Patient: Total time spent is greater than 50% in coordination of care (as documented) at patient's floor/unit and/or counseling patient:
[2020-08-26] MEDS ORDERED: ICU PROTOCOL FOR HYPERGLYCEMIA PRN (21:55)
[2020-08-26] MEDS ORDERED: POTASSIUM CHLORIDE CRTAB 20 MEQ TABCR PO STA (22:15)
[2020-08-26] MEDS ORDERED: ALBUTEROL 0.083% NEBU SOLN 3 ML VIAL NEB PRN (22:24)
--- NOTE | 2020-08-26 22:36 | History & Physical Report ---
Date of Service August 26, 2020 Assessment & Plan (1) ST elevation myocardial infarction (STEMI): Inferior STEMI sp PCI Hypertension, slightly elevated History restrictive lung disease as per records, chronic S OB symptoms. Left breast cancer status post surgery, radiation, ongoing Arimidex Rx Hyperlipidemia on statin Rx hypothyroidism, euthyroid as of today's TSH Chronic hyponatremia, stable on salt tabs and diuretic regimen Hyperglycemia rule out DM Hypokalemia secondary to home diuretic Rx ICU monitoring post PCI Management of cardiac issues as per Cardiology. Replace potassium Check hemoglobin A1c DVT prophylaxis per Lovenox subcu Full code Text document was generated using [employer] recognition software. It may contain grammatical or spelling errors. Kindly contact undersigned for clarification of any documentation item in question. Admission and Anticipated Discharge Date Admission Date: August 26, 2020 History of Present Illness Chief Complaint: Shortness of breath, syncope Primary Care Provider: Ken Diallo DO History obtained from patient and records. Medical history significant for HTN, hyperlipidemia, restrictive lung disease as per records, Left breast cancer status post surgery, radiation, ongoing Arimidex Rx, hypothyroidism, chronic hyponatremia. Last confinement last month for hyponatremia. Patient evaluated by Nephrology. Patient discharged on Lasix and salt tablets. 1200 mL/day fluid restriction instructions given. Levothyroxine also initiated for subclinical hypothyroidism. Last night after dinner, patient started feeling tired, not feeling well. Shortness of breath without cough symptoms. No actual chest pain. Subsequent syncopal event witnessed by . Patient was out for a few moments. EMS alerted by . ST elevations noted on the inferior leads on prehospital EKG. Heart alert called upon arrival at the ER. Severe proximal RCA lesion noted on emergent cardiac catheterization. Subsequent GUILLERMO deployed. Patient currently comfortable at the ICU post PCI. Medical History as above Surgical History : Lymph node biopsy, breast lesion excision, partial mastectomy left, partial hysterectomy, knee cyst removal, cataract surgery Family History : Breast cancer, heart disease Personal/Social history : Non-smoker, no EtOH intake, retired educator Allergies Allergy/AdvReac Type Severity Reaction Status Date / Time amoxicillin Allergy Intermediate Rash Verified 07/05/20 14:04 adhesive tape AdvReac Verified 07/05/20 14:04 Home Medications Medication Instructions Recorded Confirmed Type anastrozole 1 mg tablet 1 mg PO DAILY 11/17/18 08/26/20 History ammonium lactate 12 % topical cream 1 applic TOP DAILY 05/18/20 08/26/20 History atorvastatin 10 mg tablet 10 mg PO QPM 05/18/20 08/26/20 History clindamycin HCl 150 mg capsule 150 mg PO TID PRN 05/18/20 08/26/20 History multivitamin 1 tab PO DAILY 05/18/20 08/26/20 History acetaminophen [Acetaminophen Extra 500 mg PO Q8H PRN 07/26/20 08/26/20 History Strength] amlodipine 5 mg PO PM 07/26/20 08/26/20 History fluticasone propionate 2 spray INTRANASAL QAM 07/26/20 08/26/20 History lisinopril 40 mg PO DAILY 07/26/20 08/26/20 History furosemide 40 mg PO BID 30 Days #60 tab 08/02/20 08/26/20 Rx sodium chloride 1 g PO BID 30 Days #60 tab 08/02/20 08/26/20 Rx levothyroxine 25 mcg PO DAILY #30 cap 08/03/20 08/26/20 Rx Past Med/Surg History Medical History Allergic rhinitis Person's cyst of knee Benign neoplasm of colon Cataract Dyslipidemia Edema of both legs FH: colonic polyps HTN, goal below 140/90 Hx of vaginal delivery Lumbar spondylosis Menopause Painful total knee replacement, right Surgical History History of lumpectomy of left breast History of partial hysterectomy Family History Mother Musculoskeletal disease Blood disorder anemia, at age 91y Father , dies at age 81 Diabetes 1.5, managed as type 2 Hypertension Brother Hypertension Sister , UNILATERAL, POSTMENOPAUSAL BREAST CANCER Breast cancer Social History Smoking Status: Never smoker Hx Alcohol Use: No Hx Substance Use: No Preferred Language: Vietnamese Communication Ability: Effective Visual Impairment: Partially Limited Hearing Ability: Normal Risk Control Manager Required: No Beliefs That Will Affect Care: None marital status: Current Living Situation: Spouse current occupation: homemaker Other Information That Helps Us Care for You: No Feels Safe at Home: Yes Safety Concerns: Feels Safe At This Time caffeine: Yes during the past year weight has: remained stable Assistive Devices: Cane and Glasses Review of Systems Review of Systems: As per HPI, all 10 systems reviewed, all other ROS negative Physical Exam Physical Exam: GENERAL: Comfortable, pleasant, no respiratory distress SKIN: Pallor, warm HEENT: Bespectacled, pale palpebral conjunctivae, no ptosis, dry buccal mucosa NECK : Supple, no tenderness CHEST : CTA, no tenderness HEART : RRR, no obvious murmurs ABDOMEN: Some distention, nontender EXTREMITIES : No LE swelling/tenderness, no other conspicuous deformities noted NEUROLOGIC : Coherent, no facial asymmetry, no other gross focality Results & Data Results & Data ([facility]) Vital Signs (Past 12 Hours) Vital Signs Temp Pulse Resp BP Pulse Ox 08/26/20 21:54 36.5 C 61 21 151/76 H 98 08/26/20 20:22 36.5 C 67 16 154/80 H 98 08/26/20 20:18 100 Laboratory Results Laboratory Results WBC 7.23 K/uL (4.8-10.8) 08/26/20 20:30 RBC 3.72 M/uL (4.2-5.4) L 08/26/20 20:30 Hgb 11.6 g/dL (12.0-16.0) L 08/26/20 20:30 Hct 34.2 % (37-47) L 08/26/20 20:30 MCV 91.9 fL (80-100) 08/26/20 20:30 MCH 31.2 pg (25-34) 08/26/20 20:30 MCHC 33.9 g/dL (32-36) 08/26/20 20:30 RDW Std Deviation 45.2 fL (36.4-46.3) 08/26/20 20:30 RDW Coeff of Herrera 13.4 % (11.5-14.5) 08/26/20 20:30 Plt Count 262 K/uL (130-400) 08/26/20 20:30 MPV 9.1 fL (7.4-10.4) 08/26/20 20:30 Immature Gran % (Auto) 0.1 % 08/26/20 20:30 Neut % (Auto) 44.1 % 08/26/20 20:30 Lymph % (Auto) 39.6 % 08/26/20 20:30 [place] % (Auto) 14.5 % 08/26/20 20:30 Eos % (Auto) 1.4 % 08/26/20 20:30 Baso % (Auto) 0.3 % 08/26/20 20:30 Neut # (Auto) 3.19 K/uL (1.4-6.5) 08/26/20 20:30 Lymph # (Auto) 2.86 K/uL (1.2-3.4) 08/26/20 20:30 [place] # (Auto) 1.05 K/uL (0.11-0.59) H 08/26/20 20:30 Eos # (Auto) 0.10 K/uL (0-0.5) 08/26/20 20:30 Baso # (Auto) 0.02 K/uL (0-0.2) 08/26/20 20:30 Immature Gran # (Auto) 0.01 K/uL (0.00-0.02) 08/26/20 20:30 PT 10.6 Seconds (9.0-12.0) 08/26/20 20:30 INR 1.0 (0.9-1.1) 08/26/20 20:30 APTT 24.9 Seconds (21.0-31.0) 08/26/20 20:30 PTT Ratio 0.9 08/26/20 20:30 Sodium 138 mmol/L (136-145) 08/26/20 20:30 Potassium 2.8 mmol/L (3.5-5.1) L 08/26/20 20:30 Chloride 99 mmol/L (98-107) 08/26/20 20:30 Carbon Dioxide 29 mmol/L (21-32) 08/26/20 20:30 Anion Gap 10.0 (3-11) 08/26/20 20:30 BUN 12 mg/dl (7-18) 08/26/20 20:30 Creatinine 0.73 mg/dl (0.6-1.2) 08/26/20 20:30 Est Cr Clr Drug Dosing 54.9 ml/min 08/26/20 20:30 Est GFR ( Amer) 94.7 08/26/20 20:30 Est GFR (Non-Af Amer) 81.7 08/26/20 20:30 BUN/Creatinine Ratio 16.4 (10-20) 08/26/20 20:30 Glucose 137 mg/dl (70-99) H 08/26/20 20:30 Calcium 9.4 mg/dl (8.5-10.1) 08/26/20 20:30 Total Bilirubin 0.2 mg/dl (0.2-1) 08/26/20 20:30 AST 29 U/L (15-37) 08/26/20 20:30 ALT 38 U/L (12-78) 08/26/20 20:30 Alkaline Phosphatase 133 U/L (45-117) H 08/26/20 20:30 Troponin I 0.102 ng/ml (0-0.045) H* 08/26/20 20:30 Total Protein 7.8 gm/dl (6.4-8.2) 08/26/20 20:30 Albumin 3.6 gm/dl (3.4-5.0) 08/26/20 20:30 Globulin 4.2 gm/dl (2.5-4.0) H 08/26/20 20:30 Albumin/Globulin Ratio 0.9 (0.9-2) 08/26/20 20:30 Lipase 168 U/L (73-393) 08/26/20 20:30 [facility] 08/26/20 20:30 SARS-CoV-2, RNA, NAAT NEGATIVE (NEGATIVE) 08/26/20 20:30 Diagnostic Findings Chest x-ray as per my interpretation cardiomegaly EKG as per my interpretation : Rate 60, NSR, LAD, LAFB, viewed inversion inferior leads (1) ST elevation myocardial infarction (STEMI) Involved coronary artery: unspecified coronary artery Qualified Code(s): I21.3 - ST elevation (STEMI) myocardial infarction of unspecified site
--- NOTE | 2020-08-26 22:41 | Critical Care Consultation ---
Date of Consultation August 26, 2020 Assessment & Plan (1) ST elevation myocardial infarction (STEMI): Impression: 74 yof presents to the ICU following inferior STEMI w/ successful PCI w/ DESx1 to the RCA Neuro - syncope- currently asymptomatic and neuro intact. Dysrythmia w/ RCA ACS possible or symptomatic bradycardia. No occurences since arrival to hospital. Monitor Cardiac - Inferior STEMI- s/p PCI to RCA with GUILLERMO x1. Currently hemodynamically stable. Exam as above. - trend troponins - f/u echo. -Last echo w/ normal EF and grade 2 diastolic dysfxn. Continue home dose Lasix - consult to cardiology - daily EKGs - continuous monitoring on telemetry - ASA, statin, Brilinta, lisionopril. Low dose Coreg favored to MTP d/t recent symptomatic bradycardia w/ last admission. Will uptitrate as tolerated. HTN- continue home regimen lisinopril, amlodipine. Low dose BB added following CA Respiratory - No hx pulm disease. Currently 100% on RA. Monitor continuous pulse ox GI - Vegetarian diet per patient request RENAL/LYTES - creatinine within normal limits. Monitor routine BMPs and replete electrolytes as indicated - strict I's and O's ENDO - No history of DM. f/u A1c. ICU hyperglycemic protocol Hypothyroidism- continue synthroid. f/u TSH HEME - H&H stable. Monitor routine CBCs ID - No indication for infectious process at this time. Tren fever curve LINES/IV ACCESS - PIVs DVT PROPHYLAXIS - SCDs, Lovenox Thank you for allowing us to participate in the care of this patient. Please refer to my attending physician's documentation for any further recommendations. (2) Diastolic CHF: (3) Hyponatremia: (4) Bradycardia: (5) Syncope: (6) Ambulatory dysfunction: (7) Subclinical hypothyroidism: (8) Dyslipidemia: (9) HTN (hypertension): (10) Malignant neoplasm of upper-inner quadrant of left breast in female, estrogen receptor positive: History of Present Illness Attending Physician: Sanchez Junior MD History of Present Illness Mrs. [id number] female with past medical history HTN,Diastolic CHF,Hyponatremia, bradycardia, history of breast cancer s/p Lumpectomy Who presented to the emergency department earlier this evening Following witnessed syncopal event. Patient displayed inferior ST elevation on EKG prior to arrival to the ED, and heart alert was initiated in route. Troponin was found to be elevated and EKG in the ED revealed ST elvation in inferior leads with reciprocal changes in lateal leads. Patient was given ASA and Heparin bolus and taken to the slab lifting supervisor. Patient was found to have severe RCA lesion and recieved successful PCI with GUILLERMO x1. Patient transferred to ICU post cath for further management. On arrival to the ICU patient is calm, cooperative, and oriented. She is hemod ynamically stable w/o use of vasopressors and maintaining oxygen saturation on RA. She reports mild tingling in the left arm without chest pain or palpitations. She denies current CLEMENT, dizziness, or syncope. She denies SOB, recent illness or fevers, abdominal pain, nausea or vomiting, or diarrhea. She denies recent swelling in hands and feet. Will monitor in ICU overnight and likely downgrade in AM if no acute events. Allergies Allergy/AdvReac Type Severity Reaction Status Date / Time amoxicillin Allergy Intermediate Rash Verified 07/05/20 14:04 adhesive tape AdvReac Verified 07/05/20 14:04 Home Medications Medication Instructions Recorded Confirmed Type anastrozole 1 mg tablet 1 mg PO DAILY 11/17/18 08/26/20 History ammonium lactate 12 % topical cream 1 applic TOP DAILY 05/18/20 08/26/20 History atorvastatin 10 mg tablet 10 mg PO QPM 05/18/20 08/26/20 History clindamycin HCl 150 mg capsule 150 mg PO TID PRN 05/18/20 08/26/20 History multivitamin 1 tab PO DAILY 05/18/20 08/26/20 History acetaminophen [Acetaminophen Extra 500 mg PO Q8H PRN 07/26/20 08/26/20 History Strength] amlodipine 5 mg PO PM 07/26/20 08/26/20 History fluticasone propionate 2 spray INTRANASAL QAM 07/26/20 08/26/20 History lisinopril 40 mg PO DAILY 07/26/20 08/26/20 History furosemide 40 mg PO BID 30 Days #60 tab 08/02/20 08/26/20 Rx sodium chloride 1 g PO BID 30 Days #60 tab 08/02/20 08/26/20 Rx levothyroxine 25 mcg PO DAILY #30 cap 08/03/20 08/26/20 Rx Patient History Medical History Allergic rhinitis Person's cyst of knee Benign neoplasm of colon Cataract Dyslipidemia Edema of both legs FH: colonic polyps HTN, goal below 140/90 Hx of vaginal delivery Lumbar spondylosis Menopause Painful total knee replacement, right Surgical History History of lumpectomy of left breast History of partial hysterectomy Family History Mother Musculoskeletal disease Blood disorder anemia, at age 91y Father , dies at age 81 Diabetes 1.5, managed as type 2 Hypertension Brother Hypertension Sister , UNILATERAL, POSTMENOPAUSAL BREAST CANCER Breast cancer Social History Smoking Status: Never smoker Hx Alcohol Use: No Hx Substance Use: No Preferred Language: Georgian Communication Ability: Effective Visual Impairment: Partially Limited Hearing Ability: Normal Industrial Machinery Mechanic Required: No Beliefs That Will Affect Care: None marital status: Current Living Situation: Spouse current occupation: homemaker Other Information That Helps Us Care for You: No Feels Safe at Home: Yes Safety Concerns: Feels Safe At This Time caffeine: Yes during the past year weight has: remained stable Assistive Devices: Cane and Glasses Review of Systems Review of Systems: All systems reviewed & are unremarkable except as noted in HPI & below Physical Exam Constitutional: cooperative and comfortable; no acute distress Eyes: PERRL, conjunctivae normal, anicteric sclerae ENMT: external ear and nose normal, oropharynx normal Neck: trachea midline, no thyromegaly Respiratory: normal respiratory effort, lungs clear to auscultation Cardiovascular: RRR, no murmur, no edema Heart Sounds: normal S1 and normal S2; no murmur Vessels: no JVD Extremities: normal capillary refill; no edema Gastrointestinal (Abdomen): normal bowel sounds, soft, nontender, no he patosplenomegaly Skin: no rashes, warm and dry Neurologic: PERRL, EOMI, accommodation nl, no face palsy, no dysarthria Psychiatric: A+Ox3, euthymic affect Results & Data Results & Data ([facility]) Vital Signs (Past 12 Hours) Vital Signs Temp Pulse Resp BP Pulse Ox 08/26/20 21:54 36.5 C 61 21 151/76 H 98 08/26/20 20:22 36.5 C 67 16 154/80 H 98 08/26/20 20:18 100 Coding Level of Care Code 25851 Inpt Consult Level [address] elevation myocardial infarction (STEMI) I21.3 Involved coronary artery: unspecified coronary artery Diastolic CHF I50.30 Hyponatremia E87.1 Bradycardia R00.1 Syncope R55 Syncope type: unspecified Ambulatory dysfunction R26.2 Subclinical hypothyroidism E03.9 Dyslipidemia E78.5 HTN (hypertension) I10 Malignant neoplasm of upper-inner quadrant of left breast in female, estrogen receptor positive C50.212; Z17.0 (1) ST elevation myocardial infarction (STEMI) Involved coronary artery: unspecified coronary artery Qualified Code(s): I21.3 - ST elevation (STEMI) myocardial infarction of unspecified site (2) Syncope Syncope type: unspecified Qualified Code(s): R55 - Syncope and collapse
[2020-08-26] MEDS: METOPROLOL TARTRATE 25 MG TAB PO SCH ×2 (22:47→23:21)
[2020-08-26] MEDS: POTASSIUM CHLORIDE / WTR 10 MEQ/100 ML PLCT IV SCH (22:47)
[2020-08-26] MEDS ORDERED: traMADol HCL 50 MG TABLET PO PRN (23:08)
[2020-08-26] MEDS ORDERED: PROMETHAZINE HCL 6.25 MG in SODIUM CHLORIDE 0.9% 50 ML IV PRN (23:08)
[2020-08-26] MEDS ORDERED: carvediloL 3.125 MG TAB PO ONE (23:08)
[2020-08-26] MEDS ORDERED: ACETAMINOPHEN 325 MG TAB PO PRN (23:08)
[2020-08-26] MEDS ORDERED: MoRPHine SULFATE 2 MG/ML CARP IV PRN (23:08)
[2020-08-27] MEDS: POTASSIUM CHLORIDE / WTR 10 MEQ/100 ML PLCT IV SCH ×3 (00:41→05:10)
[2020-08-27 05:35] LABS: Basophils # (auto) 0.02 K/uL (0-0.2); Basophils % (auto) 0.3 %; Eosinophils # (auto) 0.04 K/uL (0-0.5); Eosinophils % (auto) 0.6 %; Hematocrit (blood only) 33.1 % (37-47); Hemoglobin 11.2 g/dL (12.0-16.0); Immature Granulocytes # (auto) 0.01 K/uL (0.00-0.02); Immature Granulocytes % (auto) 0.2 %; Lymphocytes # (auto) 1.29 K/uL (1.2-3.4); Mean Corpuscular Hemoglobin 30.8 pg (25-34); Mean Corpuscular Hgb Conc 33.8 g/dL (32-36); Mean Corpuscular Volume 90.9 fL (80-100); Mean Platelet Volume 8.9 fL (7.4-10.4); Monocytes # (auto) 0.81 K/uL (0.11-0.59); Monocytes % (auto) 12.6 %; Neutrophils # (auto) 4.27 K/uL (1.4-6.5); Neutrophils % (auto) 66.3 %; Platelet Count 246 K/uL (130-400); RDW Coefficient of Variation 13.3 % (11.5-14.5); RDW Standard Deviation 44.4 fL (36.4-46.3); Red Blood Count 3.64 M/uL (4.2-5.4); White Blood Count 6.44 K/uL (4.8-10.8)
[2020-08-27 06:02] LABS: BUN Creatinine Ratio 19.7 (10-20); Calcium 8.9 mg/dl (8.5-10.1); Creatinine Clr Calc Pharmacy 76.6 ml/min; Est GFR (African American) 113.6; Magnesium 2.1 mg/dl (1.8-2.4); Potassium 3.6 mmol/L (3.5-5.1)
[2020-08-27 06:20] LABS: Phosphorus 3.8 mg/dl (2.5-4.9); Thyroid Stimulating Hormone 1.33 uIu/ml (0.300-4.500); Troponin I 5.54 ng/ml (0-0.045)
[2020-08-27] MEDS: LEVOTHYROXINE SODIUM 25 MCG TABLET PO SCH (06:36)
[2020-08-27] MEDS: SODIUM CHLORIDE 1 GM TABLET PO SCH ×2 (08:08→20:51)
[2020-08-27] MEDS: lisinopril 40 MG TAB PO SCH (08:08)
[2020-08-27] MEDS: MULTIVITAMIN TAB PO SCH (08:08)
[2020-08-27] MEDS: ANASTROZOLE 1 MG TAB PO SCH (08:08)
[2020-08-27] MEDS: TICAGRELOR 90 MG TAB PO SCH ×2 (08:08→20:50)
[2020-08-27] MEDS: ENOXAPARIN INJ 30 MG/0.3 ML SYR SQ SCH (08:08)
[2020-08-27] MEDS: ATORVASTATIN 40 MG TAB PO SCH (08:09)
[2020-08-27] MEDS: carvediloL 3.125 MG TAB PO SCH ×2 (08:09→20:51)
[2020-08-27] MEDS: ASPIRIN 81 MG ECTAB PO SCH (08:09)
[2020-08-27] MEDS ORDERED: CHOLECALCIFEROL 1,000 UNITS 25 MCG TAB PO SCH (09:00)
[2020-08-27] MEDS ORDERED: FUROSEMIDE 40 MG TAB PO SCH (09:00)
--- NOTE | 2020-08-27 12:14 | Critical Care Progress Note ---
Date of Service August 27, 2020 Assessment & Plan (1) ST elevation myocardial infarction (STEMI): Impression: 74-year-old female presenting with shortness of breath. Cardiac alert called in the emergency room and patient taken urgently to the Assemblies And Installations Inspector. Proximal RCA lesion noted and stented. Observed in the ICU overnight. Recommendations: 1. ST elevation myocardial infarction: Management per cardiology and primary service. She is hemodynamically stable. 2. Continue antihypertensives and lipid-lowering therapy as well as and type platelet agents. 3. Advance diet as tolerated. 4. Out of bed as tolerated. Patient appears appropriate to downgrade out of the ICU. We will sign off at this point time. Feel free to contact us if we can be of additional assistance. Admission and Anticipated Discharge Date Admission Date: August 26, 2020 Subjective Patient seen and examined. EMR reviewed. Patient is doing well clinically. She denies chest pain palpitations or shortness of breath. No numbness tingling. No lower extremity edema. No nausea or vomiting. She is tolerating a diet. Review of Systems Review of Systems: All systems reviewed & are unremarkable except as noted in HPI & below Physical Exam Constitutional: WD/WN, vitals as above Neck: trachea midline, no thyromegaly Respiratory: normal respiratory effort, lungs clear to auscultation Cardiovascular: RRR, no murmur, no edema Gastrointestinal (Abdomen): normal bowel sounds, soft, nontender, no hepatosplenomegaly Musculoskeletal: Extremities: extremities normal to inspection Skin: no rashes, warm and dry Neurologic: Nonfocal exam Lymphatic: no cervical lymphadenopathy Results & Data Results & Data ([facility]) Vital Signs (Past 12 Hours) Vital Signs Temp Pulse Resp BP Pulse Ox 08/27/20 12:00 78 08/27/20 11:26 78 20 99/78 L 97 08/27/20 11:00 36.9 C 68 24 98 08/27/20 10:56 78 22 111/66 99 08/27/20 10:26 65 15 118/68 98 08/27/20 10:00 70 22 98 08/27/20 09:56 75 22 123/73 97 08/27/20 09:30 62 14 100 08/27/20 09:26 62 15 141/74 H 100 08/27/20 09:00 70 26 H 100 08/27/20 08:56 64 16 139/74 99 08/27/20 08:30 76 29 H 97 08/27/20 08:00 36.7 C 81 26 H 96 08/27/20 07:56 80 21 130/78 97 08/27/20 07:35 69 25 H 157/88 H 98 08/27/20 07:34 97 08/27/20 07:26 62 28 H 144/83 H 99 08/27/20 07:00 67 14 100 08/27/20 06:56 60 19 161/89 H 100 08/27/20 06:30 61 13 99 08/27/20 06:27 61 19 100 08/27/20 06:26 66 16 132/94 100 08/27/20 05:55 58 L 22 139/85 99 08/27/20 05:26 62 25 H 131/81 99 08/27/20 04:56 68 24 147/82 H 98 08/27/20 04:26 58 L 16 142/88 H 99 08/27/20 03:56 59 L 15 149/84 H 100 08/27/20 03:26 53 L 14 123/73 98 08/27/20 02:55 58 L 15 147/86 H 99 08/27/20 02:26 58 L 13 130/85 99 08/27/20 01:55 36.5 C 54 L 16 105/66 98 08/27/20 01:25 57 L 14 106/68 97 08/27/20 00:56 65 15 118/74 98 08/27/20 00:25 63 18 148/85 H 98 Laboratory Results 08/27/20 04:30 08/27/20 04:30 Diagnostic Findings No new imaging. Coding Level of Care Code 19422 Subseq Hosp Care Lvl [address] elevation myocardial infarction (STEMI) I21.3 Involved coronary artery: unspecified coronary artery (1) ST elevation myocardial infarction (STEMI) Involved coronary artery: unspecified coronary artery Qualified Code(s): I21.3 - ST elevation (STEMI) myocardial infarction of unspecified site
--- NOTE | 2020-08-27 13:12 | Cardiology Consultation ---
Date of Consultation August 27, 2020 Assessment & Plan (1) ST elevation myocardial infarction (STEMI): (2) Syncope: (3) Diastolic CHF: (4) Hypertension: The patient did experience a ST segment elevation secondary to acute RCA stenosis. Underwent successful PCI with resultant KEYANA-3 flow. Symptoms now have resolved. Echocardiogram reveals mild hypokinesis of the posterior wall otherwise normal wall motion. Has been started on dual antiplatelet therapy along with low-dose beta-halima. Statin dose increased and will likely discharge home on atorvastatin 80 mg daily. Continue to monitor on telemetry for total of 72 hours to observe for any potential ventricular arrhythmias, none so far. I discussed the pathophysiology and treatment options with the patient and her by phone and they are in agreement with the plan. History of Present Illness Reason for Consultation: RCA ST segment elevation [place] Requesting Physician: Dr. Whittington Attending Physician: Gilberto Ojeda MD History of Present Illness It was my pleasure to see the patient in cardiac consultation today. She presented to [facility] on 08/26/2020 with complaints of acute onset of shortness of breath and syncope. She states that she and her were out to dinner when she suddenly felt very tired with overall malaise. She became short of breath with some tightness in her neck. EMS was emergently summoned and EKG in the field revealed ST segment elevations in the inferior leads. Heart alert was called and she was taken emergently to the cardiac [facility]. Interventional cardiology found a proximal RCA lesion which was successfully opened with drug-eluting stent. Resultant KEYANA-3 flow. The patient denies any recurrent symptoms overnight and states that now she feels well. Allergies Allergy/AdvReac Type Severity Reaction Status Date / Time amoxicillin Allergy Intermediate Rash Verified 07/05/20 14:04 adhesive tape AdvReac Verified 07/05/20 14:04 Home Medications Medication Instructions Recorded Confirmed Type anastrozole 1 mg tablet 1 mg PO DAILY 11/17/18 08/26/20 History ammonium lactate 12 % topical cream 1 applic TOP DAILY 05/18/20 08/26/20 History atorvastatin 10 mg tablet 10 mg PO QPM 05/18/20 08/26/20 History clindamycin HCl 150 mg capsule 150 mg PO TID PRN 05/18/20 08/26/20 History multivitamin 1 tab PO DAILY 05/18/20 08/26/20 History acetaminophen [Acetaminophen Extra 500 mg PO Q8H PRN 07/26/20 08/26/20 History Strength] amlodipine 5 mg PO PM 07/26/20 08/26/20 History fluticasone propionate 2 spray INTRANASAL QAM 07/26/20 08/26/20 History lisinopril 40 mg PO DAILY 07/26/20 08/26/20 History furosemide 40 mg PO BID 30 Days #60 tab 08/02/20 08/26/20 Rx sodium chloride 1 g PO BID 30 Days #60 tab 08/02/20 08/26/20 Rx levothyroxine 25 mcg PO DAILY #30 cap 08/03/20 08/26/20 Rx Patient History Medical History Allergic rhinitis Person's cyst of knee Benign neoplasm of colon Cataract Dyslipidemia Edema of both legs FH: colonic polyps HTN, goal below 140/90 Hx of vaginal delivery Lumbar spondylosis Menopause Painful total knee replacement, right Surgical History History of lumpectomy of left breast History of partial hysterectomy Family History Mother Musculoskeletal disease Blood disorder anemia, at age 91y Father , dies at age 81 Diabetes 1.5, managed as type 2 Hypertension Brother Hypertension Sister , UNILATERAL, POSTMENOPAUSAL BREAST CANCER Breast cancer Social History Smoking Status: Never smoker Hx Alcohol Use: No Hx Substance Use: No Preferred Language: Greenlandic Communication Ability: Effective Visual Impairment: Partially Limited Hearing Ability: Normal Chemical Process Engineer Required: No Beliefs That Will Affect Care: None marital status: Current Living Situation: Spouse current occupation: homemaker Other Information That Helps Us Care for You: No Feels Safe at Home: Yes Safety Concerns: Feels Safe At This Time caffeine: Yes during the past year weight has: remained stable Assistive Devices: Cane and Glasses Review of Systems Review of Systems: All systems reviewed & are unremarkable except as noted in HPI & below Physical Exam Physical Exam: General: Awake, alert and oriented x 3. No acute distress. HEENT: Normocephalic, atraumatic. Pupils equal, round and reactive to light and accommodation. Extraocular muscles are intact. Anicteric sclera. Moist mucous membranes. Neck: No JVD. No bruit. Cardiovascular: Regular. Positive S-4. Normal S-1 and S-2. No S-3. No murmurs or rubs. Pulmonary: Clear to auscultation B/L. No rales, rhonchi or wheezing Abdomen: Bowel sounds x 4, soft. No rebound, guarding or tenderness. No organomegaly. Extremities: No clubbing, cyanosis or edema. +2 pedal pulses bilaterally. Skin: Warm and dry. Results & Data ([facility]) Vital Signs (Past 12 Hours) Vital Signs Temp Pulse Resp BP Pulse Ox 08/27/20 12:00 78 08/27/20 11:26 78 20 99/78 L 97 08/27/20 11:00 36.9 C 68 24 98 08/27/20 10:56 78 22 111/66 99 08/27/20 10:26 65 15 118/68 98 08/27/20 10:00 70 22 98 08/27/20 09:56 75 22 123/73 97 08/27/20 09:30 62 14 100 08/27/20 09:26 62 15 141/74 H 100 08/27/20 09:00 70 26 H 100 08/27/20 08:56 64 16 139/74 99 08/27/20 08:30 76 29 H 97 08/27/20 08:00 36.7 C 81 26 H 96 08/27/20 07:56 80 21 130/78 97 08/27/20 07:35 69 25 H 157/88 H 98 08/27/20 07:34 97 08/27/20 07:26 62 28 H 144/83 H 99 08/27/20 07:00 67 14 100 08/27/20 06:56 60 19 161/89 H 100 08/27/20 06:30 61 13 99 08/27/20 06:27 61 19 100 08/27/20 06:26 66 16 132/94 100 08/27/20 05:55 58 L 22 139/85 99 08/27/20 05:26 62 25 H 131/81 99 08/27/20 04:56 68 24 147/82 H 98 08/27/20 04:26 58 L 16 142/88 H 99 08/27/20 03:56 59 L 15 149/84 H 100 08/27/20 03:26 53 L 14 123/73 98 08/27/20 02:55 58 L 15 147/86 H 99 08/27/20 02:26 58 L 13 130/85 99 08/27/20 01:55 36.5 C 54 L 16 105/66 98 08/27/20 01:25 57 L 14 106/68 97 Laboratory Results Laboratory Results - last 24 hr 08/26/20 08/26/20 08/26/20 20:30 20:30 20:30 WBC 7.23 RBC 3.72 L Hgb 11.6 L Hct 34.2 L MCV 91.9 MCH 31.2 MCHC 33.9 RDW Std Deviation 45.2 RDW Coeff of Herrera 13.4 Plt Count 262 MPV 9.1 Immature Gran % (Auto) 0.1 Neut % (Auto) 44.1 Lymph % (Auto) 39.6 Vigo % (Auto) 14.5 Eos % (Auto) 1.4 Baso % (Auto) 0.3 Neut # (Auto) 3.19 Lymph # (Auto) 2.86 Vigo # (Auto) 1.05 H Eos # (Auto) 0.10 Baso # (Auto) 0.02 Immature Gran # (Auto) 0.01 PT 10.6 INR 1.0 APTT 24.9 PTT Ratio 0.9 Sodium 138 Potassium 2.8 L Chloride 99 Carbon Dioxide 29 Anion Gap 10.0 BUN 12 Creatinine 0.73 Est Cr Clr Drug Dosing 54.9 Est GFR ( Amer) 94.7 Est GFR (Non-Af Amer) 81.7 BUN/Creatinine Ratio 16.4 Glucose 137 H POC Glucose Estimat Average Glucose Hemoglobin A1c Calcium 9.4 Phosphorus Magnesium 2.0 Total Bilirubin 0.2 AST 29 ALT 38 Alkaline Phosphatase 133 H Troponin I 0.102 H* Total Protein 7.8 Albumin 3.6 Globulin 4.2 H Albumin/Globulin Ratio 0.9 Lipase 168 TSH Nasal Screen MRSA (PCR) COVID-19 Eval Order SARS-CoV-2, RNA, NAAT 08/26/20 08/26/20 08/26/20 20:30 20:30 20:30 WBC RBC Hgb Hct MCV MCH MCHC RDW Std Deviation RDW Coeff of Herrera Plt Count MPV Immature Gran % (Auto) Neut % (Auto) Lymph % (Auto) Vigo % (Auto) Eos % (Auto) Baso % (Auto) Neut # (Auto) Lymph # (Auto) Vigo # (Auto) Eos # (Auto) Baso # (Auto) Immature Gran # (Auto) PT INR APTT PTT Ratio Sodium Potassium Chloride Carbon Dioxide Anion Gap BUN Creatinine Est Cr Clr Drug Dosing Est GFR ( Amer) Est GFR (Non-Af Amer) BUN/Creatinine Ratio Glucose POC Glucose Estimat Average Glucose Pending Hemoglobin A1c Pending Calcium Phosphorus Magnesium Total Bilirubin AST ALT Alkaline Phosphatase Troponin I Total Protein Albumin Globulin Albumin/Globulin Ratio Lipase TSH Nasal Screen MRSA (PCR) COVID-19 Eval [facility] SARS-CoV-2, RNA, NAAT NEGATIVE 08/26/20 08/27/20 08/27/20 21:50 01:31 04:30 WBC 6.44 RBC 3.64 L Hgb 11.2 L Hct 33.1 L MCV 90.9 MCH 30.8 MCHC 33.8 RDW Std Deviation 44.4 RDW Coeff of Herrera 13.3 Plt Count 246 MPV 8.9 Immature Gran % (Auto) 0.2 Neut % (Auto) 66.3 Lymph % (Auto) 20.0 Vigo % (Auto) 12.6 Eos % (Auto) 0.6 Baso % (Auto) 0.3 Neut # (Auto) 4.27 Lymph # (Auto) 1.29 Vigo # (Auto) 0.81 H Eos # (Auto) 0.04 Baso # (Auto) 0.02 Immature Gran # (Auto) 0.01 PT INR APTT PTT Ratio Sodium Potassium Chloride Carbon Dioxide Anion Gap BUN Creatinine Est Cr Clr Drug Dosing Est GFR ( Amer) Est GFR (Non-Af Amer) BUN/Creatinine Ratio Glucose POC Glucose Estimat Average Glucose Hemoglobin A1c Calcium Phosphorus Magnesium Total Bilirubin AST ALT Alkaline Phosphatase Troponin I 3.680 H* Total Protein Albumin Globulin Albumin/Globulin Ratio Lipase TSH Nasal Screen MRSA (PCR) Negative COVID-19 Eval Order SARS-CoV-2, RNA, NAAT 08/27/20 08/27/20 08/27/20 04:30 11:03 12:35 WBC RBC Hgb Hct MCV MCH MCHC RDW Std Deviation RDW Coeff of Herrera Plt Count MPV Immature Gran % (Auto) Neut % (Auto) Lymph % (Auto) Vigo % (Auto) Eos % (Auto) Baso % (Auto) Neut # (Auto) Lymph # (Auto) Vigo # (Auto) Eos # (Auto) Baso # (Auto) Immature Gran # (Auto) PT INR APTT PTT Ratio Sodium 140 Potassium 3.6 D Chloride 103 Carbon Dioxide 31 Anion Gap 6.0 BUN 9 Creatinine 0.47 L Est Cr Clr Drug Dosing 76.6 Est GFR ( Amer) 113.6 Est GFR (Non-Af Amer) 98.0 BUN/Creatinine Ratio 19.7 Glucose 106 H POC Glucose 152 H Estimat Average Glucose Hemoglobin A1c Calcium 8.9 Phosphorus 3.8 Magnesium 2.1 Total Bilirubin AST ALT Alkaline Phosphatase Troponin I 5.540 H* Pending Total Protein Albumin Globulin Albumin/Globulin Ratio Lipase TSH 1.330 Nasal Screen MRSA (PCR) COVID-19 Eval Order SARS-CoV-2, RNA, NAAT Diagnostic Findings Emergency got a catheterization revealed severe proximal right coronary artery lesion, high anterior takeoff, emergency intervention performed with placement of 4 mm x 18 mm Xience drug-eluting stent postdilated with 4 mm noncompliant balloon at nominal pressures. Excellent angiographic results with normal KEYANA flow. Medications Administered Current Inpatient Medications Acetaminophen (Acetaminophen 325 Mg Tab) 325 mg PO Q6H PRN PRN Reason: Mild Pain Stop: 09/25/20 23:07 Albuterol (Albuterol 0.083% Nebu Soln 3 Ml Vial) 2.5 mg NEB Q4H PRN PRN Reason: Shortness Of Breath Or Wheezing Stop: 09/25/20 22:23 Amlodipine Besylate (Amlodipine Besylate 5 Mg Tab) 5 mg PO HS [facility] Stop: 09/26/20 20:59 Anastrozole (Anastrozole 1 Mg Tab) 1 mg PO DAILY [facility] Stop: 09/26/20 08:59 Last Admin: 08/27/20 08:08 Dose: 1 mg Documented by: Aspirin (Aspirin 81 Mg Ectab) 81 mg PO QAM [facility] Stop: 09/26/20 08:59 Last Admin: 08/27/20 08:09 Dose: 81 mg Documented by: Atorvastatin Calcium (Atorvastatin 40 Mg Tab) 40 mg PO QAM [facility] Stop: 09/26/20 08:59 Last Admin: 08/27/20 08:09 Dose: 40 mg Documented by: Atropine Sulfate (Atropine Sulfate 0.1 Mg/Ml 10ml Syr) 0.5 mg IV UD PRN PRN Reason: bradycardia/hypotension Stop: 09/25/20 21:28 Carvedilol (Carvedilol 3.125 Mg Tab) 3.125 mg PO BID [facility] Stop: 09/26/20 08:59 Last Admin: 08/27/20 08:09 Dose: 3.125 mg Documented by: Enoxaparin Sodium (Enoxaparin Inj 30 Mg/0.3 Ml Syr) 30 mg SQ QAM [facility] Stop: 09/26/20 08:59 Last Admin: 08/27/20 08:08 Dose: 30 mg Documented by: Furosemide (Furosemide 40 Mg Tab) 40 mg PO BID17 [facility] Stop: 09/26/20 08:59 Last Admin: 08/27/20 08:08 Dose: 40 mg Documented by: Promethazine HCl 6.25 mg/ (Sodium Chloride) 50.25 mls @ 201 mls/hr IV Q6H PRN PRN Reason: Nausea And Vomiting Stop: 09/25/20 23:07 Levothyroxine Sodium (Levothyroxine Sodium 25 Mcg Tablet) 25 mcg PO DAILYBB [facility] Stop: 09/26/20 06:29 Last Admin: 08/27/20 06:36 Dose: 25 mcg Documented by: Lisinopril (Lisinopril 40 Mg Tab) 40 mg PO DAILY [facility] Stop: 09/26/20 08:59 Last Admin: 08/27/20 08:08 Dose: 40 mg Documented by: Miscellaneous (Icu Protocol For Hyperglycemia) 1 ea N/A PRN PRN; Protocol PRN Reason: Hyperglycemia Protocol Stop: 08/28/20 21:54 Morphine Sulfate (Morphine Sulfate 2 Mg/Ml Carp) 2 mg IV Q3H PRN PRN Reason: Pain Stop: 09/09/20 23:07 Multivitamins (Multivitamin Tab) 1 tab PO DAILY [facility] Stop: 09/26/20 08:59 Last Admin: 08/27/20 08:08 Dose: 1 tab Documented by: Ondansetron HCl (Ondansetron Inj 2 Mg/Ml 2 Ml Vial) 4 mg IV Q6H PRN PRN Reason: Nausea And Vomiting Stop: 09/25/20 21:28 Sodium Chloride (Sodium Chloride 1 Gm Tablet) 1 gm PO BID [facility] Stop: 09/26/20 08:59 Last Admin: 08/27/20 08:08 Dose: 1 gm Documented by: Ticagrelor (Ticagrelor 90 Mg Tab) 90 mg PO BID [facility] Stop: 09/26/20 08:59 Last Admin: 08/27/20 08:08 Dose: 90 mg Documented by: Tramadol HCl (Tramadol Hcl 50 Mg Tablet) 25 mg PO Q4H PRN PRN Reason: Pain Stop: 09/25/20 23:07 (1) ST elevation myocardial infarction (STEMI) Involved coronary artery: unspecified coronary artery Qualified Code(s): I21.3 - ST elevation (STEMI) myocardial infarction of unspecified site (2) Syncope Syncope type: unspecified Qualified Code(s): R55 - Syncope and collapse
--- NOTE | 2020-08-27 13:59 | Hospitalist Progress Note ---
Date of Service August 27, 2020 Assessment & Plan (1) ST elevation myocardial infarction (STEMI): STEMI Syncopal Episode CXR:Cardiomegaly with no acute cardiopulmonary abnormality. ECHO: Normal LV chamber size with mild concentric LVH. Normal LV systolic function, EF 60 to 65%. Mild hypokinesis of the basal and mid posterior wall. Grade 1 diastolic dysfunction. No significant valvular pathology. S/P successful PCI--GUILLERMO to RCA Appreciate cardiology input Continue aspirin, Brilinta, Lipitor, carvedilol, lisinopril Needs follow-up with cardiology upon discharge Hypertension BP Stable Continue amlodipine, carvedilol, lisinopril Monitor H/O Restrictive lung disease Left breast cancer S/P surgery, radiation Continue anastrozole Hyperlipidemia Lipitor dose increased to 40 mg daily Hypothyroidism TSH 1.33 Continue levothyroxine Chronic Hyponatremia Secondary to SIADH Sodium levels:WNL Continue sodium chloride 1 g BID Hyperglycemia R/O DM II HbA1C:pending Chronic diastolic heart failure Currently Euvolemic Resume Diuretics as able Hypokalemia Secondary to diuretic Replace electrolytes as needed Monitor DVT Px: Lovenox SQ Code Status Full code Admission and Anticipated Discharge Date Admission Date: August 26, 2020 Subjective Patient is seen and examined at bedside States feeling much better today Denies chest pain, dyspnea, dizziness, nausea, abdominal pain Offers no other complaints Review of Systems Review of Systems: All systems reviewed & are unremarkable except as noted in HPI & below Physical Exam Physical Exam: Physical Exam: Vitals signs as noted above General Appearance:Moderately built and nourished, no apparent distress Head: normocephalic, Atraumatic Eyes: normal inspection, EOMI Neck: supple, Trachea midline Respiratory/Chest: Normal breath sounds, CTA Cardiovascular: S1, S2, No murmur Abdomen/GI:Soft, Non tender, Bowel sounds present Extremities/Musculoskelatal:normal inspection, no edema Neurologic/Psych:AAOX3, grossly no focal neurological deficits Skin: normal color, warm Results & Data Results & Data ([facility]) Vital Signs (Past 12 Hours) Vital Signs Temp Pulse Resp BP Pulse Ox 08/27/20 12:00 78 08/27/20 11:26 78 20 99/78 L 97 08/27/20 11:00 36.9 C 68 24 98 08/27/20 10:56 78 22 111/66 99 08/27/20 10:26 65 15 118/68 98 08/27/20 10:00 70 22 98 08/27/20 09:56 75 22 123/73 97 08/27/20 09:30 62 14 100 08/27/20 09:26 62 15 141/74 H 100 08/27/20 09:00 70 26 H 100 08/27/20 08:56 64 16 139/74 99 08/27/20 08:30 76 29 H 97 08/27/20 08:00 36.7 C 81 26 H 96 08/27/20 07:56 80 21 130/78 97 08/27/20 07:35 69 25 H 157/88 H 98 08/27/20 07:34 97 08/27/20 07:26 62 28 H 144/83 H 99 08/27/20 07:00 67 14 100 08/27/20 06:56 60 19 161/89 H 100 08/27/20 06:30 61 13 99 08/27/20 06:27 61 19 100 08/27/20 06:26 66 16 132/94 100 08/27/20 05:55 58 L 22 139/85 99 08/27/20 05:26 62 25 H 131/81 99 08/27/20 04:56 68 24 147/82 H 98 08/27/20 04:26 58 L 16 142/88 H 99 08/27/20 03:56 59 L 15 149/84 H 100 08/27/20 03:26 53 L 14 123/73 98 08/27/20 02:55 58 L 15 147/86 H 99 08/27/20 02:26 58 L 13 130/85 99 Laboratory Results Short CBC 08/26/20 08/27/20 Range/Units 20:30 04:30 WBC 7.23 6.44 (4.8-10.8) K/uL Hgb 11.6 L 11.2 L (12.0-16.0) g/dL Hct 34.2 L 33.1 L (37-47) % Plt Count 262 246 (130-400) K/uL BMP 08/26/20 08/27/20 20:30 04:30 Sodium 138 140 Potassium 2.8 L 3.6 D Chloride 99 103 Carbon Dioxide 29 31 BUN 12 9 Creatinine 0.73 0.47 L Glucose 137 H 106 H Calcium 9.4 8.9 Cardiac Enzymes 02/13/21 02/14/21 02/14/21 Range/Units 20:30 01:31 04:30 Troponin I 0.102 H* 3.680 H* 5.540 H* (0-0.045) ng/ml 08/27/20 Range/Units 12:35 Troponin I 5.310 H* (0-0.045) ng/ml Liver Function 08/26/20 Range/Units 20:30 Total Bilirubin 0.2 (0.2-1) mg/dl AST 29 (15-37) U/L ALT 38 (12-78) U/L Alkaline Phosphatase 133 H (45-117) U/L Albumin 3.6 (3.4-5.0) gm/dl (1) ST elevation myocardial infarction (STEMI) Involved coronary artery: unspecified coronary artery Qualified Code(s): I21.3 - ST elevation (STEMI) myocardial infarction of unspecified site
[2020-08-27] MEDS: amLODIPine BESYLATE 5 MG TAB PO SCH (20:51)
--- NOTE | 2020-08-28 05:30 | Electrocardiogram Report ---
Test Reason : Blood Pressure : / mmHG Vent. Rate : 061 BPM Atrial Rate : 061 BPM P-R Int : 166 ms QRS Dur : 090 ms QT Int : 436 ms P-R-T Axes : 046 -10 -42 degrees QTc Int : 438 ms Normal sinus rhythm Inferior infarct , age undetermined Abnormal ECG When compared with ECG of 26-JUL-2020 18:40, T wave inversion now evident in Inferior leads Confirmed by Messi Red ([id number]) on 08/28/2020 5:30:16 AM Referred By: REFERRED SELF Confirmed By:Messi Red
--- NOTE | 2020-08-28 05:41 | Electrocardiogram Report ---
Test Reason : Blood Pressure : / mmHG Vent. Rate : 067 BPM Atrial Rate : 067 BPM P-R Int : 166 ms QRS Dur : 086 ms QT Int : 426 ms P-R-T Axes : 000 -29 -53 degrees QTc Int : 450 ms Sinus rhythm with Premature atrial complexes Inferior infarct (cited on or before 26-AUG-2020) Nonspecific T wave abnormality Abnormal ECG When compared with ECG of 26-AUG-2020 21:49, Premature atrial complexes are now Present Nonspecific T wave abnormality now evident in Anterior leads Confirmed by Messi Red ([id number]) on 08/28/2020 5:41:19 AM Referred By: REFERRED SELF Confirmed By:Messi Red
[2020-08-28] MEDS: LEVOTHYROXINE SODIUM 25 MCG TABLET PO SCH (06:01)
[2020-08-28 06:08] LABS: Estimated Average Glucose 140 mg/dl; Hemoglobin A1C 6.5 % (4.5-5.6)
[2020-08-28 06:34] LABS: Basophils # (auto) 0.01 K/uL (0-0.2); Basophils % (auto) 0.1 %; Eosinophils % (auto) 1.4 %; Hematocrit (blood only) 35.6 % (37-47); Immature Granulocytes # (auto) 0.01 K/uL (0.00-0.02); Immature Granulocytes % (auto) 0.1 %; Lymphocytes # (auto) 1.54 K/uL (1.2-3.4); Lymphocytes % (auto) 22.2 %; Mean Corpuscular Hemoglobin 30.8 pg (25-34); Mean Corpuscular Hgb Conc 33.7 g/dL (32-36); Mean Corpuscular Volume 91.5 fL (80-100); Mean Platelet Volume 8.8 fL (7.4-10.4); Monocytes # (auto) 0.77 K/uL (0.11-0.59); Monocytes % (auto) 11.1 %; Neutrophils # (auto) 4.51 K/uL (1.4-6.5); Neutrophils % (auto) 65.1 %; Platelet Count 243 K/uL (130-400); RDW Coefficient of Variation 13.5 % (11.5-14.5); RDW Standard Deviation 44.6 fL (36.4-46.3); Red Blood Count 3.89 M/uL (4.2-5.4); White Blood Count 6.94 K/uL (4.8-10.8)
[2020-08-28 07:03] LABS: BUN Creatinine Ratio 15.3 (10-20); Calcium 9.3 mg/dl (8.5-10.1); Creatinine Clr Calc Pharmacy 62.1 ml/min; Est GFR (Non-African American) 91.4; Magnesium 2.1 mg/dl (1.8-2.4); Potassium 3.7 mmol/L (3.5-5.1)
[2020-08-28 07:07] LABS: Phosphorus 3.6 mg/dl (2.5-4.9)
[2020-08-28] MEDS: ENOXAPARIN INJ 30 MG/0.3 ML SYR SQ SCH (09:27)
[2020-08-28] MEDS: ASPIRIN 81 MG ECTAB PO SCH (09:28)
[2020-08-28] MEDS: lisinopril 40 MG TAB PO SCH (09:28)
[2020-08-28] MEDS: SODIUM CHLORIDE 1 GM TABLET PO SCH ×2 (09:28→20:14)
[2020-08-28] MEDS: MULTIVITAMIN TAB PO SCH (09:28)
[2020-08-28] MEDS: ATORVASTATIN 40 MG TAB PO SCH (09:28)
[2020-08-28] MEDS: FLUTICASONE PROPIONATE NA SPR 16 GM BTL SCH (09:28)
[2020-08-28] MEDS: carvediloL 3.125 MG TAB PO SCH ×2 (09:28→20:14)
[2020-08-28] MEDS: ANASTROZOLE 1 MG TAB PO SCH (09:28)
[2020-08-28] MEDS: TICAGRELOR 90 MG TAB PO SCH ×2 (09:29→20:18)
--- NOTE | 2020-08-28 09:33 | Electrocardiogram Report ---
Test Reason : Blood Pressure : / mmHG Vent. Rate : 046 BPM Atrial Rate : 046 BPM P-R Int : 170 ms QRS Dur : 082 ms QT Int : 486 ms P-R-T Axes : 109 -02 024 degrees QTc Int : 425 ms Poor data quality, interpretation may be adversely affected Sinus bradycardia Borderline ECG No previous ECGs available Confirmed by Oliver Tee ([id number]) on 07/28/2020 3:01:44 PM Also confirmed by Oliver Tee ([id number]), development editor Danuta Hernandez ([id number]) on 08/28/2020 9:33:25 AM Referred By: REFERRED SELF Confirmed By:Oliver Tee
--- NOTE | 2020-08-28 11:15 | Hospitalist Progress Note ---
Date of Service August 28, 2020 Assessment & Plan (1) ST elevation myocardial infarction (STEMI): STEMI Syncopal Episode CXR:Cardiomegaly with no acute cardiopulmonary abnormality. ECHO: Normal LV chamber size with mild concentric LVH. Normal LV systolic function, EF 60 to 65%. Mild hypokinesis of the basal and mid posterior wall. Grade 1 diastolic dysfunction. No significant valvular pathology. S/P successful PCI--GUILLERMO to RCA Appreciate cardiology input Continue aspirin, Brilinta, Lipitor, carvedilol, lisinopril Continue current medications Needs follow-up with cardiology upon discharge Hypertension BP Stable Continue amlodipine, carvedilol, lisinopril Monitor H/O Restrictive lung disease Left breast cancer S/P surgery, radiation Continue anastrozole Hyperlipidemia Continue Lipitor 40 mg daily Hypothyroidism TSH 1.33 Continue levothyroxine Chronic Hyponatremia Secondary to SIADH Sodium levels:WNL Continue sodium chloride 1 g BID Advised to follow up with Nephrology upon discharge DM II New diagnosis HbA1C:6.5 [employer] Consulted Prefers not to be started on any medications for now until follow up with PCP Chronic diastolic heart failure Currently Euvolemic Resume Diuretics as able Hypokalemia Secondary to diuretic Replace electrolytes as needed Monitor DVT Px: Lovenox SQ Code Status Full code Admission and Anticipated Discharge Date Admission Date: August 26, 2020 Subjective Patient is seen and examined at bedside Sitting in chair comfortably this morning No new complaints Denies chest pain, dyspnea, dizziness, nausea, abdominal pain Review of Systems Review of Systems: All systems reviewed & are unremarkable except as noted in HPI & below Physical Exam Physical Exam: Physical Exam: Vitals signs as noted above General Appearance:Moderately built and nourished, no apparent distress Head: normocephalic, Atraumatic Eyes: normal inspection, EOMI Neck: supple, Trachea midline Respiratory/Chest: Normal breath sounds, CTA Cardiovascular: S1, S2, No murmur Abdomen/GI:Soft, Non tender, Bowel sounds present Extremities/Musculoskelatal:normal inspection, no edema Neurologic/Psych:AAOX3, grossly no focal neurological deficits Skin: normal color, warm Results & Data Results & Data ([facility]) Vital Signs (Past 12 Hours) Vital Signs Temp Pulse Pulse Resp BP Pulse Ox 08/28/20 07:37 37.0 C 74 18 135/88 97 08/28/20 07:00 69 08/28/20 04:23 36.9 C 76 16 137/79 98 08/27/20 23:24 36.9 C 62 16 126/75 96 Laboratory Results Short CBC 08/28/20 Range/Units 06:15 WBC 6.94 (4.8-10.8) K/uL Hgb 12.0 (12.0-16.0) g/dL Hct 35.6 L (37-47) % Plt Count 243 (130-400) K/uL BMP 08/28/20 06:15 Sodium 136 Potassium 3.7 Chloride 100 Carbon Dioxide 28 BUN 9 Creatinine 0.58 L Glucose 107 H Calcium 9.3 Cardiac Enzymes 08/27/20 Range/Units 12:35 Troponin I 5.310 H* (0-0.045) ng/ml (1) ST elevation myocardial infarction (STEMI) Involved coronary artery: unspecified coronary artery Qualified Code(s): I21.3 - ST elevation (STEMI) myocardial infarction of unspecified site
--- NOTE | 2020-08-28 11:49 | Cardiology Progress Note ---
Date of Service August 28, 2020 Assessment & Plan (1) ST elevation myocardial infarction (STEMI): (2) Syncope: (3) Diastolic CHF: (4) Hypertension: The patient did experience a ST segment elevation secondary to acute RCA stenosis. Underwent successful PCI with resultant KEYANA-3 flow. Symptoms now have resolved. Echocardiogram reveals mild hypokinesis of the posterior wall otherwise normal wall motion. Has been started on dual antiplatelet therapy along with low-dose beta-halima. Statin dose increased and will likely discharge home on atorvastatin 80 mg daily. Continue to monitor on telemetry for total of 72 hours to observe for any potential ventricular arrhythmias, none so far. Will likely DC in the a.m. of 08/29/2020. I discussed the pathophysiology and treatment options with the patient and her by phone and they are in agreement with the plan. Admission and Anticipated Discharge Date Admission Date: August 26, 2020 Subjective Patient seen and examined, chart reviewed. States that she feels well without recurrences of dyspnea or neck discomfort. Tolerating medications well and denies any shortness of breath, chest pain, palpitations, lightheadedness, dizziness or syncope. Telemetry reviewed: Normal sinus rhythm without arrhythmia or significant ventricular ectopy. Review of Systems Review of Systems: All systems reviewed & are unremarkable except as noted in HPI & below Physical Exam Physical Exam: General: Awake, alert and oriented x 3. No acute distress. HEENT: Normocephalic, atraumatic. Pupils equal, round and reactive to light and accommodation. Extraocular muscles are intact. Anicteric sclera. Moist mucous membranes. Neck: No JVD. No bruit. Cardiovascular: Regular. Positive S-4. Normal S-1 and S-2. No S-3. No murmurs or rubs. Pulmonary: Clear to auscultation B/L. No rales, rhonchi or wheezing Abdomen: Bowel sounds x 4, soft. No rebound, guarding or tenderness. No organomegaly. Extremities: No clubbing, cyanosis or edema. +2 pedal pulses bilaterally. Skin: Warm and dry. Results & Data ([facility]) Vital Signs (Past 12 Hours) Vital Signs Temp Pulse Pulse Resp BP Pulse Ox 08/28/20 11:38 36.9 C 68 18 154/88 H 96 08/28/20 07:37 37.0 C 74 18 135/88 97 08/28/20 07:00 69 08/28/20 04:23 36.9 C 76 16 137/79 98 (1) ST elevation myocardial infarction (STEMI) Involved coronary artery: unspecified coronary artery Qualified Code(s): I21.3 - ST elevation (STEMI) myocardial infarction of unspecified site (2) Syncope Syncope type: unspecified Qualified Code(s): R55 - Syncope and collapse
[2020-08-28] MEDS: amLODIPine BESYLATE 5 MG TAB PO SCH (20:14)
--- NOTE | 2020-08-29 05:55 | Electrocardiogram Report ---
Test Reason : Blood Pressure : / mmHG Vent. Rate : 065 BPM Atrial Rate : 065 BPM P-R Int : 160 ms QRS Dur : 080 ms QT Int : 416 ms P-R-T Axes : 036 -27 -48 degrees QTc Int : 432 ms Normal sinus rhythm Inferior infarct (cited on or before 26-AUG-2020) Abnormal ECG When compared with ECG of 27-AUG-2020 09:05, Premature atrial complexes are no longer Present Nonspecific T wave abnormality, improved in Anterior leads Confirmed by Messi Red ([id number]) on 08/29/2020 5:54:57 AM Referred By: REFERRED SELF Confirmed By:Messi eRd
[2020-08-29] MEDS: LEVOTHYROXINE SODIUM 25 MCG TABLET PO SCH (05:57)
[2020-08-29 06:41] LABS: Basophils # (auto) 0.02 K/uL (0-0.2); Basophils % (auto) 0.4 %; Eosinophils # (auto) 0.21 K/uL (0-0.5); Eosinophils % (auto) 3.7 %; Hematocrit (blood only) 33.3 % (37-47); Hemoglobin 11.1 g/dL (12.0-16.0); Immature Granulocytes # (auto) 0.01 K/uL (0.00-0.02); Immature Granulocytes % (auto) 0.2 %; Mean Corpuscular Hemoglobin 30.5 pg (25-34); Mean Corpuscular Hgb Conc 33.3 g/dL (32-36); Mean Corpuscular Volume 91.5 fL (80-100); Monocytes # (auto) 0.67 K/uL (0.11-0.59); Monocytes % (auto) 11.9 %; Neutrophils % (auto) 58.8 %; Platelet Count 224 K/uL (130-400); RDW Coefficient of Variation 13.3 % (11.5-14.5); RDW Standard Deviation 44.5 fL (36.4-46.3); Red Blood Count 3.64 M/uL (4.2-5.4); White Blood Count 5.61 K/uL (4.8-10.8)
[2020-08-29 07:02] LABS: Estimated Average Glucose 140 mg/dl; Hemoglobin A1C 6.5 % (4.5-5.6)
[2020-08-29 07:23] LABS: BUN Creatinine Ratio 19.4 (10-20); Calcium 9.1 mg/dl (8.5-10.1); Est GFR (African American) 112.8; Est GFR (Non-African American) 97.3; Magnesium 2.1 mg/dl (1.8-2.4); Phosphorus 3.5 mg/dl (2.5-4.9); Potassium 3.8 mmol/L (3.5-5.1)
[2020-08-29] MEDS: ATORVASTATIN 40 MG TAB PO SCH (07:41)
[2020-08-29] MEDS: ASPIRIN 81 MG ECTAB PO SCH (07:41)
[2020-08-29] MEDS: carvediloL 3.125 MG TAB PO SCH (07:41)
[2020-08-29] MEDS: FLUTICASONE PROPIONATE NA SPR 16 GM BTL SCH (07:41)
[2020-08-29] MEDS: MULTIVITAMIN TAB PO SCH (07:42)
[2020-08-29] MEDS: ENOXAPARIN INJ 30 MG/0.3 ML SYR SQ SCH (07:42)
[2020-08-29] MEDS: ANASTROZOLE 1 MG TAB PO SCH (07:42)
[2020-08-29] MEDS: lisinopril 40 MG TAB PO SCH (07:42)
[2020-08-29] MEDS: SODIUM CHLORIDE 1 GM TABLET PO SCH (07:42)
[2020-08-29] MEDS: TICAGRELOR 90 MG TAB PO SCH (07:49)
[2020-08-29 07:50] VITALS: PULSE 68
[2020-08-29 11:38] VITALS: BP 136/81; TEMP 98.1; O2SAT 98
--- NOTE | 2020-08-29 11:58 | Hospitalist Progress Note ---
Date of Service August 29, 2020 Assessment & Plan (1) ST elevation myocardial infarction (STEMI): STEMI Syncopal Episode CXR:Cardiomegaly with no acute cardiopulmonary abnormality. ECHO: Normal LV chamber size with mild concentric LVH. Normal LV systolic function, EF 60 to 65%. Mild hypokinesis of the basal and mid posterior wall. Grade 1 diastolic dysfunction. No significant valvular pathology. S/P successful PCI--GUILLERMO to RCA Appreciate cardiology input Continue aspirin, Brilinta, Lipitor, carvedilol, lisinopril Continue current medications Needs follow-up with cardiology upon discharge Continue current management Will need repeat ECHO as outpatient to asses resolution of wall motion abnormality Hypertension BP Stable Continue amlodipine, carvedilol, lisinopril Monitor H/O Restrictive lung disease Left breast cancer S/P surgery, radiation Continue anastrozole Hyperlipidemia Continue Lipitor 40 mg daily Hypothyroidism TSH 1.33 Continue levothyroxine Chronic Hyponatremia Secondary to SIADH Sodium levels:WNL Continue sodium chloride 1 g BID Advised to follow up with Nephrology upon discharge DM II New diagnosis HbA1C:6.5 Director Trust Consulted Prefers not to be started on any medications for now until follow up with PCP Chronic diastolic heart failure Currently Euvolemic Continue home Diuretics Hypokalemia Secondary to diuretic Replace electrolytes as needed Monitor DVT Px: Lovenox SQ Code Status Full code Admission and Anticipated Discharge Date Admission Date: August 26, 2020 Subjective Patient is seen and examined at bedside Doing well today Denies chest pain, dyspnea, dizziness, nausea, abdominal pain Discussed with Cardiology today Review of Systems Review of Systems: All systems reviewed & are unremarkable except as noted in HPI & below Physical Exam Physical Exam: Physical Exam: Vitals signs as noted above General Appearance:Moderately built and nourished, no apparent distress Head: normocephalic, Atraumatic Eyes: normal inspection, EOMI Neck: supple, Trachea midline Respiratory/Chest: Normal breath sounds, CTA Cardiovascular: S1, S2, No murmur Abdomen/GI:Soft, Non tender, Bowel sounds present Extremities/Musculoskelatal:normal inspection, no edema Neurologic/Psych:AAOX3, grossly no focal neurological deficits Skin: normal color, warm Results & Data Results & Data ([facility]) Vital Signs (Past 12 Hours) Vital Signs Temp Pulse Resp BP BP Pulse Ox 08/29/20 11:37 36.7 C 68 18 136/81 98 08/29/20 07:49 36.8 C 68 18 158/90 H 97 08/29/20 04:28 37 C 67 18 130/79 96 Laboratory Results Short CBC 08/29/20 Range/Units 06:22 WBC 5.61 (4.8-10.8) K/uL Hgb 11.1 L (12.0-16.0) g/dL Hct 33.3 L (37-47) % Plt Count 224 (130-400) K/uL BMP 08/29/20 06:22 Sodium 137 Potassium 3.8 Chloride 102 Carbon Dioxide 28 BUN 9 Creatinine 0.48 L Glucose 97 Calcium 9.1 (1) ST elevation myocardial infarction (STEMI) Involved coronary artery: unspecified coronary artery Qualified Code(s): I21.3 - ST elevation (STEMI) myocardial infarction of unspecified site
--- NOTE | 2020-08-29 12:11 | Discharge Summary ---
Date of Service August 29, 2020 Admission HPI Per Admitting Provider History obtained from patient and records. Medical history significant for HTN, hyperlipidemia, restrictive lung disease as per records, Left breast cancer status post surgery, radiation, ongoing Arimidex Rx, hypothyroidism, chronic hyponatremia. Last confinement last month for hyponatremia. Patient evaluated by Nephrology. Patient discharged on Lasix and salt tablets. 1200 mL/day fluid restriction instructions given. Levothyroxine also initiated for subclinical hypothyroidism. Last night after dinner, patient started feeling tired, not feeling well. Shortness of breath without cough symptoms. No actual chest pain. Subsequent syncopal event witnessed by . Patient was out for a few moments. EMS alerted by . ST elevations noted on the inferior leads on prehospital EKG. Heart alert called upon arrival at the ER. Severe proximal RCA lesion noted on emergent cardiac catheterization. Subsequent GUILLERMO deployed. Patient currently comfortable at the ICU post PCI. Medical History as above Surgical History : Lymph node biopsy, breast lesion excision, partial mastectomy left, partial hysterectomy, knee cyst removal, cataract surgery Family History : Breast cancer, heart disease Personal/Social history : Non-smoker, no EtOH intake, retired educator Admission Exam Per Admitting Provider Physical Exam Physical Exam: GENERAL: Comfortable, pleasant, no respiratory distress SKIN: Pallor, warm HEENT: Bespectacled, pale palpebral conjunctivae, no ptosis, dry buccal mucosa NECK : Supple, no tenderness CHEST : CTA, no tenderness HEART : RRR, no obvious murmurs ABDOMEN: Some distention, nontender EXTREMITIES : No LE swelling/tenderness, no other conspicuous deformities noted NEUROLOGIC : Coherent, no facial asymmetry, no other gross focality Principal Diagnosis ST elevation myocardial infarction Hypertension Diabetes Mellitus Syncope Discharge Data Allergies Allergy/AdvReac Type Severity Reaction Status Date / Time amoxicillin Allergy Intermediate Rash Verified 07/05/20 14:04 adhesive tape AdvReac Verified 07/05/20 14:04 Consultations 08/26/20 21:46 Consult Cardiology Routine 08/26/20 21:55 Consult Case Management - Discharge Planning Routine 08/26/20 22:08 Consult Plug Sorter Routine Procedures Performed Operation Date: 08/26/20 20:00 Actual Procedures s Cineradiography w/Routine Exam - Ricco Hernanedz MD p Aspiration/PCI w/GUILLERMO for Stemi - Ricco Hernandez MD s Cath, Coronaries ONLY (no LV) - Ricco Hernandez MD s Placement Art Occlusive Device - Ricco Hernandez MD Ordered Studies 08/26/20 20:22 CL Cath Imgs for PACS use only Stat CXR:Cardiomegaly with no acute cardiopulmonary abnormality. ECHO: Normal LV chamber size with mild concentric LVH. Normal LV systolic function, EF 60 to 65%. Mild hypokinesis of the basal and mid posterior wall. Grade 1 diastolic dysfunction. No significant valvular pathology. Cardiac catheterization Summary of Findings 74-year-old female, prior history of hypertension presented to emergency room with symptoms of throat discomfort, subsequently had what appears to be a syncopal episode. EKG in route to the hospital revealed evidence of inferior ST elevation with reciprocal depressions, Emergency got a catheterization revealed severe proximal right coronary artery lesion, high anterior takeoff, emergency intervention performed with placement of 4 mm x 18 mm Xience drug-eluting stent postdilated with 4 mm noncompliant balloon at nominal pressures. Excellent angiographic results with normal KEYANA flow. Hospital Course (1) ST elevation myocardial infarction (STEMI): STEMI Syncopal Episode CXR:Cardiomegaly with no acute cardiopulmonary abnormality. ECHO: Normal LV chamber size with mild concentric LVH. Normal LV systolic function, EF 60 to 65%. Mild hypokinesis of the basal and mid posterior wall. Grade 1 diastolic dysfunction. No significant valvular pathology. S/P successful PCI--GUILLERMO to RCA Appreciate cardiology input Continue aspirin, Brilinta, Lipitor, carvedilol, lisinopril Continue current medications Needs follow-up with cardiology upon discharge Continue current management Will need repeat ECHO as outpatient to asses resolution of wall motion abnormality Hypertension BP Stable Continue amlodipine, carvedilol, lisinopril Monitor H/O Restrictive lung disease Left breast cancer S/P surgery, radiation Continue anastrozole Hyperlipidemia Continue Lipitor 40 mg daily Hypothyroidism TSH 1.33 Continue levothyroxine Chronic Hyponatremia Secondary to SIADH Sodium levels:WNL Continue sodium chloride 1 g BID Advised to follow up with Nephrology upon discharge DM II New diagnosis HbA1C:6.5 Escrow Clerk Consulted Prefers not to be started on any medications for now until follow up with PCP Chronic diastolic heart failure Currently Euvolemic Continue home Diuretics Hypokalemia Secondary to diuretic Replace electrolytes as needed Monitor DVT Px: Lovenox SQ Code Status Full code Total Time Total Time Spent Total Time Spent (In Minutes): 45 minutes Total Time Includes: Examination of the Patient, Discharge Planning, Medication Reconciliation, Communication With Other Providers and Other Discharge Plan Discharge Items Patient Disposition: Home - Self-Care Reason For Visit: HEART ALERT Discharge Diagnosis: ST elevation myocardial infarction Hypertension Diabetes Mellitus Syncope Condition on Discharge: Good Activity: Per Instructions section Exercise/Sports: Gradually increase as tolerated Non-emergency contact: Primary Care Provider and Supply Chain Director Call non-emergency contact if: you have any medication questions, your symptoms worsen, your pain is not controlled, your pain is worsening, your pain is unusual for you, your pain is concerning for you and you have a fever Follow-up/Referrals: Ken Diallo DO [Primary Care Provider] - (Date & Time 09/01/2020 1:40 PM Provider Ken Diallo DO [facility] ) Diet: Carb Consistent or DM2 and Heart Healthy Addtl Attending Provider Instructions: Follow-up with your primary care physician Dr. Diallo on 09/01/2020 1:40 PM as scheduled Follow up with your Supply Chain Director as recommended Discussed with your physician regarding possible need to be started on medications for management of your diabetes mellitus as advised. Take your medications regularly. Seek immediate medical attention if your symptoms reoccur or worsen Home Care: * Take your medications exactly as directed. Don't skip doses. * Remember that recovery after a heart attack takes time. Plan to rest for at lease 4-8 weeks while you recover. Then return to normal activity when your d octor says it's okay. * Ask your doctor about joining a heart rehabilitation program. * Tell your doctor if you are feeling depressed. Feelings of sadness are common after a heart attack, but it is important that you speak to someone if you are feeling overwhelmed by these feelings. * If you are having chest pain, call 911 for an ambulance. Do NOT drive yourself to the hospital. * Ask your family members to learn CPR. * Learn to take your own blood pressure and pulse. Keep a record of your results. Ask your doctor when you should seek emergency medical attention. He or she will tell you which blood pressure reading is dangerous. Lifestyle Changes: * Maintain a healthy weight. Get help to lose any extra pounds. * Cut back on salt. * Limit canned, dried, packaged, and fast foods. * Don't add salt to your food. * Season foods with herbs instead of salt when you cook. * Break the smoking habit. Enroll in a stop-smoking program to improve your chances of success. * Limit fatty foods. * Ask your doctor about having your lipid levels checked regularly. * Build up your activity according to your doctor's recommendation. * Ask your doctor when it's okay to resume sexual activity. * Tell your doctor about any erectile dysfunction (ED) medication you are taking. Some ED medications are not safe if you take certain heart medications. * Try to manage stress. Follow Up: It is important for you to keep your follow up appointments with your medical provider. Pending Studies at Discharge: No Stand-Alone Forms: [facility], Smoking Cessation Medications and DC Order Prescriptions: New atorvastatin 40 mg Tablet 40 mg PO QAM Qty: 30 RF: 0 aspirin 81 mg Tablet,Delayed Release (Dr/Ec) 81 mg PO QAM Qty: 30 RF: 0 carvedilol 3.125 mg Tablet 3.125 mg PO BID Qty: 60 RF: 0 Brilinta 90 mg Tablet 90 mg PO BID Qty: 60 RF: 0 Continued anastrozole [Arimidex] 1 mg tablet 1 mg PO DAILY RF: 0 ammonium lactate 12 % cream 1 applic TOP DAILY RF: 0 clindamycin HCl 150 mg capsule 150 mg PO TID PRN (Reason: dental procedures) RF: 0 multivitamin Tablet 1 tab PO DAILY RF: 0 amlodipine 5 mg Tablet 5 mg PO PM RF: 0 acetaminophen [Acetaminophen Extra Strength] 500 mg Tablet 500 mg PO Q8H PRN (Reason: Fever Or Pain) RF: 0 fluticasone propionate 50 mcg/actuation spray,suspension 2 spray INTRANASAL QAM RF: 0 lisinopril 40 mg tablet 40 mg PO DAILY RF: 0 furosemide 40 mg Tablet 40 mg PO BID 30 Days Qty: 60 RF: 2 sodium chloride 1 gram Tablet 1 g PO BID 30 Days Qty: 60 RF: 2 levothyroxine 25 mcg capsule 25 mcg PO DAILY Qty: 30 RF: 3 Discontinued atorvastatin 10 mg tablet 10 mg PO QPM RF: 0 Discharge Orders: Discharge Order (Routine); Ordered 08/29/20 Ordered By: Gilberto Seay/Other Patient Handouts: Tips for Using Less Salt, Managing Type 2 Diabetes, Exercise to Manage Your Blood Sugar, 5 Steps for Eating Healthier, Understanding Type 2 Diabetes, A1C Admission Data Admit Date/Time: 08/26/20 22:06 Attending Provider: Gilberto Ojeda Admit Provider: Ricco Hernandez Primary Care Provider: Ken Diallo Other Providers: Patrice Coy ; Alvin Buenrostro Other Interventions: Discharge Summary Assessment (RN) Last Done: 08/29/20 12:52
--- NOTE | 2020-08-29 13:49 | Cardiology Progress Note ---
Date of Service August 29, 2020 Assessment & Plan (1) ST elevation myocardial infarction (STEMI): (2) Syncope: (3) Diastolic CHF: (4) Hypertension: The patient did experience a ST segment elevation secondary to acute RCA stenosis. Underwent successful PCI with resultant KEYANA-3 flow. Symptoms now have resolved. Echocardiogram reveals mild hypokinesis of the posterior wall otherwise normal wall motion. Has been started on dual antiplatelet therapy along with low-dose beta-halima. Statin dose increased and will likely discharge home on atorvastatin 80 mg daily. Okay to discharge to home from a cardiac standpoint. Patient will require close cardiac follow-up which my office will arrange and referral for cardiac rehab. Admission and Anticipated Discharge Date Admission Date: August 26, 2020 Subjective Patient seen and examined, chart reviewed. States that she feels well and denies any recurrence of shortness of breath, neck pain, chest pain, palpita tions, lightheadedness or dizziness. Telemetry reviewed: Normal sinus rhythm without arrhythmia Review of Systems Review of Systems: All systems reviewed & are unremarkable except as noted in HPI & below Physical Exam Physical Exam: General: Awake, alert and oriented x 3. No acute distress. HEENT: Normocephalic, atraumatic. Pupils equal, round and reactive to light and accommodation. Extraocular muscles are intact. Anicteric sclera. Moist mucous membranes. Neck: No JVD. No bruit. Cardiovascular: Regular. Positive S-4. Normal S-1 and S-2. No S-3. No murmurs or rubs. Pulmonary: Clear to auscultation B/L. No rales, rhonchi or wheezing Abdomen: Bowel sounds x 4, soft. No rebound, guarding or tenderness. No organomegaly. Extremities: No clubbing, cyanosis or edema. +2 pedal pulses bilaterally. Skin: Warm and dry. Results & Data ([facility]) Vital Signs (Past 12 Hours) Vital Signs Temp Pulse Resp BP BP Pulse Ox 08/29/20 12:52 36.7 C 68 18 130/79 136/81 98 08/29/20 11:37 36.7 C 68 18 136/81 98 08/29/20 07:49 36.8 C 68 18 158/90 H 97 08/29/20 04:28 37 C 67 18 130/79 96 (1) ST elevation myocardial infarction (STEMI) Involved coronary artery: unspecified coronary artery Qualified Code(s): I21.3 - ST elevation (STEMI) myocardial infarction of unspecified site (2) Syncope Syncope type: unspecified Qualified Code(s): R55 - Syncope and collapse
== END 2020-08-29 14:31 | disposition home or self-care (01) | DRG 247 ==
LOC: ED 20:13 → CC 20:37 → SUATTDRO 22:06 → 1E 22:06 → 2S 08-27 18:46
PROC: CLB.CCO (2020-08-26 20:00)